=== PATIENT | female | born 1965 | race Caucasian/White ===

== ENCOUNTER 2018-12-11 08:48 | Outpatient (CLI) | payer MEDICARE ==
[2018-12-11 10:50] LABS: CALCIUM 8.6 mg/dL (8.5-10.3); CREATININE 1.1 mg/dL (0.4-1.0)
[2018-12-11 10:52] LABS: INR 2.2 (0.8-1.2); PT - PROTHROMBIN TIME 24.5 secs (9.9-12.6)
== END 2018-12-11 08:49 | disposition home or self-care (01) ==
LOC: LAB.F 08:48
PROVIDERS: ATTEND Family Medicine
DX: E87.5 Hyperkalemia (principal); Z95.2 Presence of prosthetic heart valve; Z79.01 Long term (current) use of anticoagulants
CPT/HCPCS: 36415; 80048; 85610

== ENCOUNTER 2018-12-19 09:25 | Outpatient (CLI) | payer MEDICARE ==
[2018-12-19 18:08] LABS: INR 1.7 (0.8-1.2); PT - PROTHROMBIN TIME 18.6 secs (9.9-12.6)
== END 2018-12-19 09:26 | disposition home or self-care (01) ==
LOC: LAB.F 09:25
PROVIDERS: ATTEND Family Medicine
DX: Z95.2 Presence of prosthetic heart valve (principal); Z79.01 Long term (current) use of anticoagulants
CPT/HCPCS: 36415; 85610

== ENCOUNTER 2018-12-25 09:40 | Outpatient (CLI) | payer MEDICARE ==
[2018-12-25 18:32] LABS: INR 1.9 (0.8-1.2); PT - PROTHROMBIN TIME 21.2 secs (9.9-12.6)
== END 2018-12-25 09:41 | disposition home or self-care (01) ==
LOC: LAB.F 09:40
PROVIDERS: ATTEND Family Medicine
DX: Z95.2 Presence of prosthetic heart valve (principal); Z79.01 Long term (current) use of anticoagulants
CPT/HCPCS: 36415; 85610

== ENCOUNTER 2019-01-01 09:35 | Outpatient (CLI) | payer MEDICARE ==
[2019-01-01 17:58] LABS: INR 2.6 (0.8-1.2); PT - PROTHROMBIN TIME 29.4 secs (9.9-12.6)
== END 2019-01-01 09:36 | disposition home or self-care (01) ==
LOC: LAB.F 09:35
PROVIDERS: ATTEND Family Medicine
DX: Z79.01 Long term (current) use of anticoagulants (principal); Z95.2 Presence of prosthetic heart valve
CPT/HCPCS: 36415; 85610

== ENCOUNTER 2019-01-09 09:01 | Outpatient (CLI) | payer MEDICARE ==
[2019-01-09 11:11] LABS: INR 1.8 (0.8-1.2); PT - PROTHROMBIN TIME 19.9 secs (9.9-12.6)
== END 2019-01-09 09:02 | disposition home or self-care (01) ==
LOC: LAB.F 09:01
PROVIDERS: ATTEND Family Medicine
DX: Z51.81 Encounter for therapeutic drug level monitoring (principal); Z79.01 Long term (current) use of anticoagulants; Z95.2 Presence of prosthetic heart valve
CPT/HCPCS: 36415; 85610

== ENCOUNTER 2019-01-15 13:41 | Outpatient (CLI) | payer MEDICARE ==
[2019-01-15 18:11] LABS: INR 3.4 (0.8-1.2); PT - PROTHROMBIN TIME 37.9 secs (9.9-12.6)
== END 2019-01-15 13:42 | disposition home or self-care (01) ==
LOC: LAB.F 13:41
PROVIDERS: ATTEND Family Medicine
DX: Z51.81 Encounter for therapeutic drug level monitoring (principal); Z79.01 Long term (current) use of anticoagulants; Z95.2 Presence of prosthetic heart valve
CPT/HCPCS: 36415; 85610

== ENCOUNTER 2019-01-22 10:01 | Outpatient (CLI) | payer MEDICARE ==
[2019-01-22 17:35] LABS: PT - PROTHROMBIN TIME 53.8 secs (9.9-12.6)
[2019-01-22 17:54] LABS: INR 4.8 (0.8-1.2)
== END 2019-01-22 10:02 | disposition home or self-care (01) ==
LOC: LAB.S 10:01
PROVIDERS: ATTEND Family Medicine
DX: Z95.2 Presence of prosthetic heart valve (principal); Z79.01 Long term (current) use of anticoagulants
CPT/HCPCS: 36415; 85610

== ENCOUNTER 2019-02-05 15:29 | Outpatient (CLI) | payer MEDICARE | END 2019-02-05 15:30 | disposition home or self-care (01) | LOC: LAB.S 15:29 | PROVIDERS: ATTEND Family Medicine | DX: Z79.01 Long term (current) use of anticoagulants (principal); Z95.2 Presence of prosthetic heart valve | CPT/HCPCS: 85610 ==

== ENCOUNTER 2019-02-07 13:30 | Outpatient (CLI) | payer MEDICARE ==
[2019-02-07 17:17] LABS: INR 1.6 (0.8-1.2); PT - PROTHROMBIN TIME 18.2 secs (9.9-12.6)
== END 2019-02-07 13:31 | disposition home or self-care (01) ==
LOC: LAB.S 13:30
PROVIDERS: ATTEND Family Medicine
DX: Z95.2 Presence of prosthetic heart valve (principal); Z79.01 Long term (current) use of anticoagulants
CPT/HCPCS: 36415; 85610

== ENCOUNTER 2019-02-19 14:19 | Outpatient (CLI) | payer MEDICARE ==
[2019-02-19 18:34] LABS: PT - PROTHROMBIN TIME 78.7 secs (9.9-12.6)
[2019-02-19 19:23] LABS: INR 7.1 (0.8-1.2)
== END 2019-02-19 14:20 | disposition home or self-care (01) ==
LOC: LAB.S 14:19
PROVIDERS: ATTEND Family Medicine
DX: Z95.2 Presence of prosthetic heart valve (principal); Z79.01 Long term (current) use of anticoagulants
CPT/HCPCS: 36415; 85610

== ENCOUNTER 2019-02-26 | Outpatient (CLI) | payer MEDICARE | END 2019-02-26 14:36 | disposition home or self-care (01) ==

== ENCOUNTER 2019-03-01 15:33 | Outpatient (CLI) | payer MEDICARE ==
[2019-03-01 17:09] LABS: INR 1.4 (0.8-1.2); PT - PROTHROMBIN TIME 15.5 secs (9.9-12.6)
== END 2019-03-01 15:34 | disposition home or self-care (01) ==
LOC: LAB.S 15:33
PROVIDERS: ATTEND Family Medicine
DX: Z95.2 Presence of prosthetic heart valve (principal); Z79.01 Long term (current) use of anticoagulants
CPT/HCPCS: 36415; 85610

== ENCOUNTER 2019-03-06 09:42 | Outpatient (CLI) | payer MEDICARE ==
[2019-03-06 17:20] LABS: PT - PROTHROMBIN TIME 52.6 secs (9.9-12.6)
[2019-03-06 17:30] LABS: INR 4.7 (0.8-1.2)
== END 2019-03-06 09:43 | disposition home or self-care (01) ==
LOC: LAB.S 09:42
PROVIDERS: ATTEND Family Medicine
DX: Z95.2 Presence of prosthetic heart valve (principal); Z79.01 Long term (current) use of anticoagulants
CPT/HCPCS: 36415; 85610

== ENCOUNTER 2019-03-09 14:47 | Outpatient (CLI) | payer MEDICARE ==
[2019-03-09 17:38] LABS: INR 4.3 (0.8-1.2); PT - PROTHROMBIN TIME 47.9 secs (9.9-12.6)
== END 2019-03-09 14:48 | disposition home or self-care (01) ==
LOC: LAB.S 14:47
PROVIDERS: ATTEND Family Medicine
DX: Z95.2 Presence of prosthetic heart valve (principal); Z79.01 Long term (current) use of anticoagulants
CPT/HCPCS: 36415; 85610

== ENCOUNTER 2019-03-14 11:43 | Outpatient (CLI) | payer MEDICARE ==
[2019-03-14 17:44] LABS: PT - PROTHROMBIN TIME 64.9 secs (9.9-12.6)
[2019-03-14 17:54] LABS: INR 5.8 (0.8-1.2)
== END 2019-03-14 11:44 | disposition home or self-care (01) ==
LOC: LAB.S 11:43
PROVIDERS: ATTEND Family Medicine
DX: Z95.2 Presence of prosthetic heart valve (principal); Z79.01 Long term (current) use of anticoagulants
CPT/HCPCS: 36415; 85610

== ENCOUNTER 2019-03-19 12:16 | Outpatient (CLI) | payer MEDICARE ==
[2019-03-19 18:34] LABS: INR 5.6 (0.8-1.2); PT - PROTHROMBIN TIME 62.5 secs (9.9-12.6)
== END 2019-03-19 12:17 | disposition home or self-care (01) ==
LOC: LAB.S 12:16
PROVIDERS: ATTEND Family Medicine
DX: Z95.2 Presence of prosthetic heart valve (principal); Z79.01 Long term (current) use of anticoagulants
CPT/HCPCS: 36415; 85610

== ENCOUNTER 2019-03-27 14:54 | Outpatient (CLI) | payer MEDICARE ==
[2019-03-27 18:40] LABS: INR 2.7 (0.8-1.2); PT - PROTHROMBIN TIME 30.7 secs (9.9-12.6)
== END 2019-03-27 14:55 | disposition home or self-care (01) ==
LOC: LAB.S 14:54
PROVIDERS: ATTEND Family Medicine
DX: Z95.2 Presence of prosthetic heart valve (principal); Z79.01 Long term (current) use of anticoagulants
CPT/HCPCS: 36415; 85610

== ENCOUNTER 2019-04-02 15:01 | Outpatient (CLI) | payer MEDICARE ==
[2019-04-02 17:11] LABS: INR 4.2 (0.8-1.2); PT - PROTHROMBIN TIME 46.7 secs (9.9-12.6)
== END 2019-04-02 15:02 | disposition home or self-care (01) ==
LOC: LAB.S 15:01
PROVIDERS: ATTEND Family Medicine
DX: Z95.2 Presence of prosthetic heart valve (principal); Z79.01 Long term (current) use of anticoagulants
CPT/HCPCS: 36415; 85610

== ENCOUNTER 2019-04-11 14:59 | Outpatient (CLI) | payer MEDICARE ==
[2019-04-11 17:23] LABS: INR 3.7 (0.8-1.2); PT - PROTHROMBIN TIME 40.8 secs (9.9-12.6)
== END 2019-04-11 15:00 | disposition home or self-care (01) ==
LOC: LAB.S 14:59
PROVIDERS: ATTEND Family Medicine
DX: Z51.81 Encounter for therapeutic drug level monitoring (principal); Z79.01 Long term (current) use of anticoagulants; Z95.2 Presence of prosthetic heart valve
CPT/HCPCS: 36415; 85610

== ENCOUNTER 2019-04-16 11:18 | Outpatient (CLI) | payer MEDICARE ==
[2019-04-16 18:59] LABS: INR 2.9 (0.8-1.2); PT - PROTHROMBIN TIME 30.9 secs (9.9-12.6)
== END 2019-04-16 11:19 | disposition home or self-care (01) ==
LOC: LAB.S 11:18
PROVIDERS: ATTEND Family Medicine
DX: Z51.81 Encounter for therapeutic drug level monitoring (principal); Z79.01 Long term (current) use of anticoagulants; Z95.2 Presence of prosthetic heart valve
CPT/HCPCS: 36415; 85610

== ENCOUNTER 2019-04-23 09:16 | Outpatient (CLI) | payer MEDICARE ==
[2019-04-23 17:29] LABS: INR 3.1 (0.8-1.2); PT - PROTHROMBIN TIME 32.8 secs (9.9-12.6)
== END 2019-04-23 09:17 | disposition home or self-care (01) ==
LOC: LAB.S 09:16
PROVIDERS: ATTEND Family Medicine
DX: Z95.2 Presence of prosthetic heart valve (principal); Z79.01 Long term (current) use of anticoagulants
CPT/HCPCS: 36415; 85610

== ENCOUNTER 2019-04-30 12:37 | Outpatient (CLI) | payer MEDICARE ==
[2019-04-30 12:55] LABS: INR 2.8 (0.8-1.2); PT - PROTHROMBIN TIME 30.2 secs (9.9-12.6)
== END 2019-04-30 12:38 | disposition home or self-care (01) ==
LOC: LAB 12:37
PROVIDERS: ATTEND Family Medicine
DX: Z79.01 Long term (current) use of anticoagulants (principal); Z95.2 Presence of prosthetic heart valve
CPT/HCPCS: 36415; 85610

== ENCOUNTER 2019-05-11 18:19 | Emergency (ER) | payer MEDICARE ==
--- NOTE | 2019-05-11 19:03 | ED Physician Documentation ---
History of Present Illness - Stated complaint Stated Complaint: RIGHT RIB PX - Chief complaint Chief Complaint: Trauma Ch/Bk - History obtained from History obtained from: Patient - History of Present Illness Timing: How many days ago (5) Pain level max: 8 Pain level now: 5 - Additonal information Additional information: 54-year-old female tripped and fell approximately 5 to 6 days ago. Landed on the right side of her chest. Complaining of pain. Worse with movement and palpation. Better with rest. She is taking Vicodin at home for chronic pain. She states that this does help. She last took it this morning. Review of Systems Constitutional: denies: Fever, Chills Cardiac: denies: Chest pain / pressure, Palpitations Respiratory: reports: Dyspnea (States hurts to take a deep breath). denies: Cough, Hemoptysis, Wheezing GI: denies: Abdominal Pain, Nausea, Vomiting, Diarrhea Skin: denies: Rash Musculoskeletal: denies: Neck pain, Back pain Neurologic: denies: Headache PD PAST MEDICAL HISTORY - Past Medical History Past Medical History: Yes Cardiovascular: Hypertension, Arrhythmia, Valve disorder Respiratory: COPD Neuro: Seizure disorder Psych: Anxiety - Past Surgical History Cardiovascular: Valve replacement Neuro: Other - Present Medications Home Medications: Ambulatory Orders Medication Instructions Recorded Confirmed Albuterol Sulfate [Proventil Hfa 2 puffs INH PRN PRN 05/11/19 05/11/19 Inhaler] Beclomethasone 40 Mcg [Qvar 40] 1 puffs INH PRN PRN 05/11/19 05/11/19 Duloxetine HCl [Cymbalta] 60 mg PO DAILY 05/11/19 05/11/19 Famotidine [Pepcid] 20 mg PO BID 05/11/19 05/11/19 Hydrocodone/Acetaminophen 1 tab PO PRN PRN 05/11/19 05/11/19 [Hydrocodone-Acetamin 10-325 mg] Levetiracetam [Keppra] 500 mg PO BID 05/11/19 05/11/19 Lisinopril 10 mg PO DAILY 05/11/19 05/11/19 QUEtiapine [SEROquel] 200 mg PO DAILY PM 05/11/19 05/11/19 Warfarin [Coumadin] 10 mg PO 1400 05/11/19 05/11/19 buPROPion HCl [Wellbutrin Sr] 200 mg PO DAILY 05/11/19 05/11/19 busPIRone [Buspar] 2 mg PO DAILY 05/11/19 05/11/19 - Allergies Allergies/Adverse Reactions: Allergies Allergy/AdvReac Type Severity Reaction Status Date / Time No Known Drug Allergies Allergy Verified 05/11/19 18:23 - Social History Does the pt smoke?: Yes Smoking Status: Current every day smoker Does the pt drink ETOH?: No Does the pt have substance abuse?: No - Immunizations Immunizations are current?: Yes PD ED PE NORMAL - Vitals Vital signs reviewed: Yes - General General: Alert and oriented X 3, No acute distress, Well developed/nourished - HEENT HEENT: Moist mucous membranes - Neck Neck: Supple, no meningeal sign, No bony TTP - Cardiac Cardiac: RRR - Respiratory Respiratory: No respiratory distress, Clear bilaterally, Other (Tender to palpation across the right anterior ribs, approximately 8 through 10. No crepitus. No ecchymosis.) - Abdomen Abdomen: Soft, Non tender, Non distended - Back Back: No spinal TTP - Derm Derm: Warm and dry - Extremities Extremities: No edema - Neuro Neuro: Alert and oriented X 3, transplant nurse practitioner 2-12 intact, No motor deficit, No sensory deficit, Normal speech Eye Opening: Spontaneous Motor: Obeys Commands Verbal: Oriented GCS Score: 15 - Psych Psych: Normal mood, Normal affect Results - Vitals Vitals: Vital Signs - 24 hr 05/11/19 05/11/19 18:23 20:36 Temperature 36.7 C 36.5 C Heart Rate 96 90 Respiratory 16 18 Rate Blood Pressure 130/53 L 117/52 L O2 Saturation 99 97 Oxygen O2 Source Room air - Rads (name of study) Right rib x-ray Radiology: Prelim report reviewed, EMP read contemporaneously, See rad report (No acute abnormality) PD MEDICAL DECISION MAKING - ED course Complexity details: reviewed results, re-evaluated patient, considered differential, d/w patient, d/w family ED course: Patient with likely right rib contusion versus fracture that is not visible on x-ray. She has pain medication at home and declines pain medication here or for home. No pneumothorax or hemothorax. Patient counseled regarding signs and symptoms for which I believe and urgent re-evaluation would be necessary. Patient with good understanding of and agreement to plan and is comfortable going home at this time This document was made in part using voice recognition software. While efforts are made to proofread this document, sound alike and grammatical errors may occur. Departure - Departure Disposition: 01 Home, Self Care Clinical Impression: Contusion of rib on right side Qualifiers: Encounter type: initial encounter Qualified Code(s): S20.211A - Contusion of right front wall of thorax, initial encounter Condition: Good Instructions: ED Contusion Rib Follow-Up: Alex Pozo MD [Primary Care Provider] - Within 1 week Comments: Continue your current medications at home. Return if you worsen. Follow-up with your doctor for further care. Discharge Date/Time: 05/11/19 20:37
--- NOTE | 2019-05-11 20:20 | XRAY Report ---
Reason: fall, R rib pain Procedure Date: 05/11/2019 Accession Number: [id number] / [id number] Procedure: XR - Ribs w/PA Chest RT CPT Code: FULL RESULT: EXAM: RIGHT RIB RADIOGRAPHY EXAM DATE: 05/11/2019 07:41 PM. CLINICAL HISTORY: Fall with right-sided rib pain COMPARISON: None. TECHNIQUE: 1 view of the chest and 2 views of the ribs. FINDINGS: Bones: Normal. No fracture or bone lesion. Lungs: No focal opacities. No pneumothorax. No pleural effusions. Mediastinum: Cardiomegaly. Median sternotomy wires. Annular valve prostheses. Other: None. IMPRESSION: No active disease seen in the chest. No displaced right rib fracture. RADIA
[2019-05-11 20:37] VITALS: BP 117/52
== END 2019-05-11 20:37 | disposition home or self-care (01) ==
LOC: ED 18:19
DX: S20.211A Contusion of right front wall of thorax, initial encounter (principal); W01.0XXA Fall on same level from slipping, tripping and stumbling without subsequent striking against object, initial encounter; I10 Essential (primary) hypertension; Z79.01 Long term (current) use of anticoagulants; Z95.2 Presence of prosthetic heart valve; J44.9 Chronic obstructive pulmonary disease, unspecified; F17.200 Nicotine dependence, unspecified, uncomplicated
CPT/HCPCS: 85610; 99282; 99284

== ENCOUNTER 2019-05-14 13:26 | Outpatient (CLI) | payer MEDICARE ==
[2019-05-14 18:00] LABS: PT - PROTHROMBIN TIME 41.7 secs (9.9-12.6)
== END 2019-05-14 13:27 | disposition home or self-care (01) ==
LOC: LAB.S 13:26
PROVIDERS: ATTEND Family Medicine
DX: Z95.2 Presence of prosthetic heart valve (principal); Z79.01 Long term (current) use of anticoagulants
CPT/HCPCS: 36415; 85610

== ENCOUNTER 2019-05-21 12:24 | Outpatient (CLI) | payer MEDICARE ==
[2019-05-21 18:07] LABS: PT - PROTHROMBIN TIME 32.2 secs (9.9-12.6)
== END 2019-05-21 12:25 | disposition home or self-care (01) ==
LOC: LAB.S 12:24
PROVIDERS: ATTEND Family Medicine
DX: Z79.01 Long term (current) use of anticoagulants (principal); Z95.2 Presence of prosthetic heart valve
CPT/HCPCS: 36415; 85610

== ENCOUNTER 2019-06-04 11:42 | Outpatient (CLI) | payer MEDICARE ==
[2019-06-04 12:32] LABS: INR 2.9 (0.8-1.2); PT - PROTHROMBIN TIME 31.6 secs (9.9-12.6)
[2019-06-04 12:38] LABS: CREATININE 1.7 mg/dL (0.4-1.0)
== END 2019-06-04 11:43 | disposition home or self-care (01) ==
LOC: LAB 11:42
PROVIDERS: ATTEND Family Medicine
DX: Z79.01 Long term (current) use of anticoagulants (principal); Z95.2 Presence of prosthetic heart valve; E87.5 Hyperkalemia
CPT/HCPCS: 36415; 80048; 85610

== ENCOUNTER 2019-06-18 11:37 | Outpatient (CLI) | payer MEDICARE ==
[2019-06-18 17:47] LABS: INR 2.3 (0.8-1.2); PT - PROTHROMBIN TIME 25.2 secs (9.9-12.6)
== END 2019-06-18 11:38 | disposition home or self-care (01) ==
LOC: LAB.S 11:37
PROVIDERS: ATTEND Family Medicine
DX: Z79.01 Long term (current) use of anticoagulants (principal); Z95.2 Presence of prosthetic heart valve
CPT/HCPCS: 36415; 85610

== ENCOUNTER 2019-06-25 12:44 | Outpatient (CLI) | payer MEDICARE ==
[2019-06-25 18:08] LABS: INR 2.3 (0.8-1.2); PT - PROTHROMBIN TIME 24.6 secs (9.9-12.6)
== END 2019-06-25 23:59 | disposition home or self-care (01) ==
LOC: LAB.S 12:44
PROVIDERS: ATTEND Family Medicine
DX: Z79.01 Long term (current) use of anticoagulants (principal); Z95.2 Presence of prosthetic heart valve
CPT/HCPCS: 36415; 85610

== ENCOUNTER 2019-07-02 12:15 | Outpatient (CLI) | payer MEDICARE ==
[2019-07-02 17:24] LABS: INR 2.3 (0.8-1.2); PT - PROTHROMBIN TIME 24.5 secs (9.9-12.6)
== END 2019-07-02 12:16 | disposition home or self-care (01) ==
LOC: LAB.S 12:15
PROVIDERS: ATTEND Family Medicine
DX: Z79.01 Long term (current) use of anticoagulants (principal); Z95.2 Presence of prosthetic heart valve
CPT/HCPCS: 36415; 85610

== ENCOUNTER 2019-07-23 10:32 | Outpatient (CLI) | payer MEDICARE ==
[2019-07-23 18:02] LABS: PT - PROTHROMBIN TIME 32.2 secs (9.9-12.6)
== END 2019-07-23 10:33 | disposition home or self-care (01) ==
LOC: LAB.S 10:32
PROVIDERS: ATTEND Family Medicine
DX: Z79.01 Long term (current) use of anticoagulants (principal); Z95.2 Presence of prosthetic heart valve
CPT/HCPCS: 36415; 85610

== ENCOUNTER 2019-08-13 12:00 | Outpatient (CLI) | payer MEDICARE ==
[2019-08-13 17:50] LABS: INR 2.5 (0.8-1.2); PT - PROTHROMBIN TIME 27.3 secs (9.9-12.6)
== END 2019-08-13 12:01 | disposition home or self-care (01) ==
LOC: LAB.S 12:00
PROVIDERS: ATTEND Family Medicine
DX: Z79.01 Long term (current) use of anticoagulants (principal); Z95.2 Presence of prosthetic heart valve
CPT/HCPCS: 36415; 85610

== ENCOUNTER 2019-09-03 12:10 | Outpatient (CLI) | payer MEDICARE | END 2019-09-03 12:11 | disposition home or self-care (01) | LOC: LAB.S 12:10 | PROVIDERS: ATTEND Family Medicine | DX: Z79.01 Long term (current) use of anticoagulants (principal); Z95.2 Presence of prosthetic heart valve | CPT/HCPCS: 36415; 85610 ==

== ENCOUNTER 2019-10-01 11:52 | Outpatient (CLI) | payer MEDICARE ==
[2019-10-01 17:09] LABS: INR 2.7 (0.8-1.2); PT - PROTHROMBIN TIME 28.7 secs (9.9-12.6)
[2019-10-01 17:21] LABS: ALBUMIN/GLOBULIN RATIO 1.3 (1.0-2.2); ALKALINE PHOSPHATASE 64 IU/L (42-121); ALT ALANINE AMINOTRANSFERASE 20 IU/L (10-60); AST ASPARTATE AMINOTRANSFERASE 25 IU/L (10-42); BILIRUBIN,TOTAL 0.4 mg/dL (0.2-1.0); BUN - BLOOD UREA NITROGEN 15 mg/dL (6-20); CALCIUM 8.6 mg/dL (8.5-10.3); CARBON DIOXIDE - CO2 24 mmol/L (21-32); CHLORIDE 106 mmol/L (101-111); CHOL/HDL RATIO 7.5 (<4.4); CHOLESTEROL 264 mg/dL; GFR - MDRD 57 (>89); GLUCOSE 92 mg/dL (70-100); HDL CHOLESTEROL 35 mg/dL; SODIUM 137 mmol/L (135-145)
[2019-10-01 17:54] LABS: LDL CHOLESTEROL,DIRECT 142 mg/dL; LDLD/HDL RATIO 4.1 (<4.4)
== END 2019-10-01 11:53 | disposition home or self-care (01) ==
LOC: LAB.S 11:52
PROVIDERS: ATTEND Family Medicine
DX: Z00.00 Encounter for general adult medical examination without abnormal findings (principal); Z95.2 Presence of prosthetic heart valve; Z79.01 Long term (current) use of anticoagulants
CPT/HCPCS: 36415; 80053; 80061; 83721; 85610

== ENCOUNTER 2019-11-05 11:52 | Outpatient (CLI) | payer MEDICARE ==
[2019-11-05 12:21] LABS: INR 4.4 (0.8-1.2); PT - PROTHROMBIN TIME 46.3 secs (9.9-12.6)
== END 2019-11-05 11:53 | disposition home or self-care (01) ==
LOC: LAB 11:52
PROVIDERS: ATTEND Family Medicine
DX: Z95.2 Presence of prosthetic heart valve (principal); Z79.01 Long term (current) use of anticoagulants
CPT/HCPCS: 36415; 85610

== ENCOUNTER 2019-11-23 14:28 | Outpatient (CLI) | payer MEDICARE ==
[2019-11-23 14:58] LABS: INR 3.2 (0.8-1.2); PT - PROTHROMBIN TIME 34.4 secs (9.9-12.6)
== END 2019-11-23 14:29 | disposition home or self-care (01) ==
LOC: LAB 14:28
PROVIDERS: ATTEND Family Medicine
DX: Z95.2 Presence of prosthetic heart valve (principal); Z79.01 Long term (current) use of anticoagulants
CPT/HCPCS: 36415; 85610

== ENCOUNTER 2019-12-13 12:52 | Outpatient (CLI) | payer MEDICARE ==
[2019-12-13 13:33] LABS: PT - PROTHROMBIN TIME 55.3 secs (9.9-12.6)
[2019-12-13 13:51] LABS: INR 5.3 (0.8-1.2)
== END 2019-12-13 12:53 | disposition home or self-care (01) ==
LOC: LAB 12:52
PROVIDERS: ATTEND Family Medicine
DX: Z95.2 Presence of prosthetic heart valve (principal); Z79.01 Long term (current) use of anticoagulants
CPT/HCPCS: 36415; 85610

== ENCOUNTER 2019-12-18 15:48 | Outpatient (CLI) | payer MEDICARE ==
[2019-12-18 16:18] LABS: INR 2.5 (0.8-1.2); PT - PROTHROMBIN TIME 26.7 secs (9.9-12.6)
== END 2019-12-18 15:49 | disposition home or self-care (01) ==
LOC: LAB 15:48
PROVIDERS: ATTEND Family Medicine
DX: Z95.2 Presence of prosthetic heart valve (principal); Z79.01 Long term (current) use of anticoagulants
CPT/HCPCS: 36415; 85610

== ENCOUNTER 2019-12-31 12:25 | Outpatient (CLI) | payer MEDICARE ==
[2019-12-31 15:06] LABS: INR 1.8 (0.8-1.2); PT - PROTHROMBIN TIME 20.2 secs (9.9-12.6)
== END 2019-12-31 12:26 | disposition home or self-care (01) ==
LOC: LAB.S 12:25
PROVIDERS: ATTEND Family Medicine
DX: Z95.2 Presence of prosthetic heart valve (principal); Z79.01 Long term (current) use of anticoagulants
CPT/HCPCS: 36415; 85610

== ENCOUNTER 2020-01-21 13:30 | Outpatient (CLI) | payer MEDICARE ==
[2020-01-21 20:47] LABS: INR 2.1 (0.8-1.2); PT - PROTHROMBIN TIME 23.2 secs (9.9-12.6)
[2020-01-21 20:49] LABS: BASOPHILS # (AUTO) 0.1 10^3/uL (0.0-0.1); BASOPHILS % (AUTO) 0.9 %; EOSINOPHILS # (AUTO) 0.2 10^3/uL (0.0-0.7); EOSINOPHILS % (AUTO) 2.3 %; HGB - HEMOGLOBIN 11.6 g/dL (12.0-16.0); LYMPHOCYTES # (AUTO) 1.9 10^3/uL (1.5-3.5); LYMPHOCYTES % (AUTO) 24.8 %; MEAN CORPUSCULAR HEMOGLOBIN 30.3 pg (27.0-31.0); MEAN CORPUSCULAR HGB CONC 30.5 g/dL (32.0-36.0); MEAN CORPUSCULAR VOLUME 99.2 fL (81.0-99.0); MEAN PLATELET VOLUME 11.1 fL (7.9-10.8); MONOCYTES # (AUTO) 0.4 10^3/uL (0.0-1.0); MONOCYTES % (AUTO) 5.6 %; NEUTROPHILS # (AUTO) 5.1 10^3/uL (1.5-6.6); PLT - PLATELET COUNT 270 10^3/uL (130-450); RED BLOOD COUNT 3.83 10^6/uL (4.20-5.40); RED CELL DISTRIBUTION WIDTH 13.9 % (12.0-15.0); WHITE BLOOD COUNT 7.7 x10^3/uL (4.8-10.8)
[2020-01-21 21:29] LABS: ALBUMIN 4.5 g/dL (3.2-5.5); ALBUMIN/GLOBULIN RATIO 1.6 (1.0-2.2); ALKALINE PHOSPHATASE 60 IU/L (42-121); ALT ALANINE AMINOTRANSFERASE 17 IU/L (10-60); AST ASPARTATE AMINOTRANSFERASE 23 IU/L (10-42); BILIRUBIN,TOTAL 0.7 mg/dL (0.2-1.0); BUN - BLOOD UREA NITROGEN 26 mg/dL (6-20); CALCIUM 8.6 mg/dL (8.5-10.3); CARBON DIOXIDE - CO2 23 mmol/L (21-32); CHLORIDE 106 mmol/L (101-111); CHOL/HDL RATIO 4.9 (<4.4); CHOLESTEROL 196 mg/dL; CREATININE 1.5 mg/dL (0.4-1.0); GLUCOSE 89 mg/dL (70-100); HDL CHOLESTEROL 40 mg/dL; LDL CHOLESTEROL,CALCULATED 100 mg/dL; LDL/HDL RATIO 2.5 (<4.4); SODIUM 136 mmol/L (135-145); TOTAL PROTEIN 7.4 g/dL (6.7-8.2); VLDL CHOLESTEROL 56 mg/dL
== END 2020-01-21 13:31 | disposition home or self-care (01) ==
LOC: LAB.S 13:30
PROVIDERS: ATTEND Family Medicine
DX: Z95.2 Presence of prosthetic heart valve (principal); Z79.01 Long term (current) use of anticoagulants; E87.5 Hyperkalemia; E78.2 Mixed hyperlipidemia; D64.9 Anemia, unspecified
CPT/HCPCS: 36415; 80053; 80061; 83721; 85025; 85610

== ENCOUNTER 2020-02-04 13:14 | Outpatient (CLI) | payer MEDICARE ==
[2020-02-04 20:08] LABS: INR 2.1 (0.8-1.2); PT - PROTHROMBIN TIME 23.2 secs (9.9-12.6)
== END 2020-02-04 13:15 | disposition home or self-care (01) ==
LOC: LAB.S 13:14
PROVIDERS: ATTEND Family Medicine
DX: Z95.2 Presence of prosthetic heart valve (principal); Z79.01 Long term (current) use of anticoagulants
CPT/HCPCS: 36415; 85610

== ENCOUNTER 2020-02-11 13:31 | Outpatient (CLI) | payer MEDICARE ==
[2020-02-11 20:08] LABS: INR 3.1 (0.8-1.2); PT - PROTHROMBIN TIME 33.4 secs (9.9-12.6)
== END 2020-02-11 13:32 | disposition home or self-care (01) ==
LOC: LAB.S 13:31
PROVIDERS: ATTEND Family Medicine
DX: Z95.2 Presence of prosthetic heart valve (principal); Z79.01 Long term (current) use of anticoagulants
CPT/HCPCS: 36415; 85610

== ENCOUNTER 2020-03-10 13:01 | Outpatient (CLI) | payer MEDICARE ==
[2020-03-10 15:22] LABS: INR 3.9 (0.8-1.2)
== END 2020-03-10 13:02 | disposition home or self-care (01) ==
LOC: LAB.S 13:01
PROVIDERS: ATTEND Family Medicine
DX: Z79.01 Long term (current) use of anticoagulants (principal); Z95.2 Presence of prosthetic heart valve
CPT/HCPCS: 36415; 85610

== ENCOUNTER 2020-03-17 13:12 | Outpatient (CLI) | payer MEDICARE ==
[2020-03-17 15:21] LABS: PT - PROTHROMBIN TIME 56.8 secs (9.9-12.6)
[2020-03-17 15:31] LABS: INR 5.5 (0.8-1.2)
== END 2020-03-17 13:13 | disposition home or self-care (01) ==
LOC: LAB.S 13:12
PROVIDERS: ATTEND Family Medicine
DX: Z79.01 Long term (current) use of anticoagulants (principal); Z95.2 Presence of prosthetic heart valve
CPT/HCPCS: 36415; 85610

== ENCOUNTER 2020-03-20 16:13 | Outpatient (CLI) | payer MEDICARE ==
[2020-03-20 20:35] LABS: INR 2.8 (0.8-1.2)
== END 2020-03-20 16:14 | disposition home or self-care (01) ==
LOC: LAB.S 16:13
PROVIDERS: ATTEND Family Medicine
DX: Z95.2 Presence of prosthetic heart valve (principal); Z79.01 Long term (current) use of anticoagulants
CPT/HCPCS: 36415; 85610

== ENCOUNTER 2020-03-24 12:58 | Outpatient (CLI) | payer MEDICARE ==
[2020-03-24 16:22] LABS: PT - PROTHROMBIN TIME 42.1 secs (9.9-12.6)
== END 2020-03-24 12:59 | disposition home or self-care (01) ==
LOC: LAB.S 12:58
PROVIDERS: ATTEND Family Medicine
DX: Z95.2 Presence of prosthetic heart valve (principal); Z79.01 Long term (current) use of anticoagulants
CPT/HCPCS: 36415; 85610

== ENCOUNTER 2020-04-01 15:40 | Outpatient (CLI) | payer MEDICARE ==
[2020-04-01 20:13] LABS: INR 2.5 (0.8-1.2); PT - PROTHROMBIN TIME 26.5 secs (9.9-12.6)
== END 2020-04-01 15:41 | disposition home or self-care (01) ==
LOC: LAB.S 15:40
PROVIDERS: ATTEND Family Medicine
DX: Z79.01 Long term (current) use of anticoagulants (principal); Z95.2 Presence of prosthetic heart valve
CPT/HCPCS: 85610

== ENCOUNTER 2020-04-14 13:27 | Outpatient (CLI) | payer MEDICARE ==
[2020-04-14 20:01] LABS: INR 2.2 (0.8-1.2); PT - PROTHROMBIN TIME 23.5 secs (9.9-12.6)
== END 2020-04-14 13:28 | disposition home or self-care (01) ==
LOC: LAB.S 13:27
PROVIDERS: ATTEND Family Medicine
DX: Z95.2 Presence of prosthetic heart valve (principal); Z79.01 Long term (current) use of anticoagulants
CPT/HCPCS: 36415; 85610

== ENCOUNTER 2020-04-21 14:50 | Outpatient (CLI) | payer MEDICARE ==
[2020-04-21 20:17] LABS: INR 2.6 (0.8-1.2); PT - PROTHROMBIN TIME 26.8 secs (9.9-12.6)
== END 2020-04-21 14:51 | disposition home or self-care (01) ==
LOC: LAB.S 14:50
PROVIDERS: ATTEND Family Medicine
DX: Z95.2 Presence of prosthetic heart valve (principal); Z79.01 Long term (current) use of anticoagulants
CPT/HCPCS: 85610

== ENCOUNTER 2020-05-06 18:34 | Outpatient (CLI) | payer MEDICARE ==
[2020-05-06 20:11] LABS: INR 3.1 (0.8-1.2); PT - PROTHROMBIN TIME 31.7 secs (9.9-12.6)
== END 2020-05-06 18:35 | disposition home or self-care (01) ==
LOC: LAB.S 18:34
PROVIDERS: ATTEND Family Medicine
DX: Z95.2 Presence of prosthetic heart valve (principal); Z79.01 Long term (current) use of anticoagulants
CPT/HCPCS: 36415; 85610

== ENCOUNTER 2020-05-19 13:14 | Outpatient (CLI) | payer MEDICARE | END 2020-05-19 13:15 | disposition home or self-care (01) | LOC: LAB.S 13:14 | PROVIDERS: ATTEND Family Medicine | DX: Z79.01 Long term (current) use of anticoagulants (principal); Z95.2 Presence of prosthetic heart valve | CPT/HCPCS: 36415; 85610 ==

== ENCOUNTER 2020-06-11 12:47 | Outpatient (CLI) | payer MEDICARE ==
[2020-06-11 14:44] LABS: PT - PROTHROMBIN TIME 21.6 secs (9.9-12.6)
== END 2020-06-11 12:48 | disposition home or self-care (01) ==
LOC: LAB.S 12:47
PROVIDERS: ATTEND Family Medicine
DX: Z95.2 Presence of prosthetic heart valve (principal); Z79.01 Long term (current) use of anticoagulants
CPT/HCPCS: 36415; 85610

== ENCOUNTER 2020-06-18 11:07 | Outpatient (CLI) | payer MEDICARE ==
[2020-06-18 16:31] LABS: INR 2.3 (0.8-1.2); PT - PROTHROMBIN TIME 24.1 secs (9.9-12.6)
== END 2020-06-18 11:08 | disposition home or self-care (01) ==
LOC: LAB.S 11:07
PROVIDERS: ATTEND Family Medicine
DX: Z95.2 Presence of prosthetic heart valve (principal); Z79.01 Long term (current) use of anticoagulants
CPT/HCPCS: 36415; 85610

== ENCOUNTER 2020-07-03 12:24 | Outpatient (CLI) | payer MEDICARE ==
[2020-07-03 14:50] LABS: INR 2.9 (0.8-1.2)
== END 2020-07-03 12:25 | disposition home or self-care (01) ==
LOC: LAB.S 12:24
PROVIDERS: ATTEND Family Medicine
DX: Z79.01 Long term (current) use of anticoagulants (principal); Z95.2 Presence of prosthetic heart valve
CPT/HCPCS: 36415; 85610

== ENCOUNTER 2020-07-16 16:33 | Outpatient (CLI) | payer MEDICARE ==
[2020-07-16 19:56] LABS: INR 2.4 (0.8-1.2); PT - PROTHROMBIN TIME 25.1 secs (9.9-12.6)
== END 2020-07-16 16:34 | disposition home or self-care (01) ==
LOC: LAB.S 16:33
PROVIDERS: ATTEND Family Medicine
DX: Z79.01 Long term (current) use of anticoagulants (principal); Z95.2 Presence of prosthetic heart valve
CPT/HCPCS: 36415; 85610

== ENCOUNTER 2020-07-29 11:03 | Outpatient (CLI) | payer MEDICARE ==
[2020-07-29 15:41] LABS: INR 2.9 (0.8-1.2); PT - PROTHROMBIN TIME 29.9 secs (9.9-12.6)
== END 2020-07-29 11:04 | disposition home or self-care (01) ==
LOC: LAB.S 11:03
PROVIDERS: ATTEND Family Medicine
DX: Z79.01 Long term (current) use of anticoagulants (principal); Z95.2 Presence of prosthetic heart valve
CPT/HCPCS: 36415; 85610

== ENCOUNTER 2020-08-13 16:38 | Outpatient (CLI) | payer MEDICARE ==
[2020-08-13 20:42] LABS: INR 3.7 (0.8-1.2); PT - PROTHROMBIN TIME 38.4 secs (9.9-12.6)
== END 2020-08-13 16:39 | disposition home or self-care (01) ==
LOC: LAB.S 16:38
PROVIDERS: ATTEND Family Medicine
DX: Z95.2 Presence of prosthetic heart valve (principal); Z79.01 Long term (current) use of anticoagulants
CPT/HCPCS: 36415; 85610

== ENCOUNTER 2020-09-01 16:15 | Outpatient (CLI) | payer MEDICARE | END 2020-09-01 16:16 | disposition critical access hospital (66) | LOC: EMS 16:15 | DX: R51.9 Headache, unspecified (principal); R42 Dizziness and giddiness | CPT/HCPCS: A0425; A0429 ==

== ENCOUNTER 2020-09-01 16:51 | Emergency (ER) | payer MEDICARE ==
[2020-09-01 18:18] LABS: BILIRUBIN,URINE NEGATIVE (NEGATIVE); GLUCOSE, URINE (UA) NEGATIVE (NEGATIVE); KETONES,URINE (UA) NEGATIVE (NEGATIVE); LEUKOCYTE ESTERASE, URINE SMALL (NEGATIVE); NITRITE,URINE POSITIVE (NEGATIVE); OCCULT BLOOD,URINE SMALL (NEGATIVE); PROTEIN,URINE NEGATIVE (NEGATIVE); UROBILINOGEN,URINE 0.2 (NORMAL) E.U./dL (NORMAL)
[2020-09-01 18:23] LABS: BACTERIA,URINE Many /HPF (None Seen); CLARITY,URINE CLEAR (CLEAR); SQUAMOUS EPITHELIAL CELL,UR FEW Squamous (<= Few)
[2020-09-01 18:38] LABS: BASOPHILS # (AUTO) 0.1 10^3/uL (0.0-0.1); BASOPHILS % (AUTO) 0.7 %; EOSINOPHILS # (AUTO) 0.2 10^3/uL (0.0-0.7); EOSINOPHILS % (AUTO) 2.2 %; HGB - HEMOGLOBIN 10.2 g/dL (12.0-16.0); LYMPHOCYTES # (AUTO) 1.8 10^3/uL (1.5-3.5); LYMPHOCYTES % (AUTO) 25.1 %; MEAN CORPUSCULAR HEMOGLOBIN 30.4 pg (27.0-31.0); MEAN CORPUSCULAR HGB CONC 30.7 g/dL (32.0-36.0); MEAN CORPUSCULAR VOLUME 98.8 fL (81.0-99.0); MEAN PLATELET VOLUME 9.9 fL (7.9-10.8); MONOCYTES # (AUTO) 0.5 10^3/uL (0.0-1.0); MONOCYTES % (AUTO) 6.4 %; NEUTROPHILS # (AUTO) 4.7 10^3/uL (1.5-6.6); NEUTROPHILS % (AUTO) 65.3 %; PLT - PLATELET COUNT 187 10^3/uL (130-450); RED BLOOD COUNT 3.36 10^6/uL (4.20-5.40); RED CELL DISTRIBUTION WIDTH 14.1 % (12.0-15.0); WHITE BLOOD COUNT 7.2 x10^3/uL (4.8-10.8)
[2020-09-01 18:45] LABS: INR 3.1 (0.8-1.2); PT - PROTHROMBIN TIME 32.4 secs (9.9-12.6)
[2020-09-01 18:51] LABS: ALBUMIN 4.1 g/dL (3.2-5.5); ALBUMIN/GLOBULIN RATIO 1.4 (1.0-2.2); BILIRUBIN,TOTAL 0.4 mg/dL (0.2-1.0); CALCIUM 9.2 mg/dL (8.5-10.3); CREATININE 1.5 mg/dL (0.4-1.0)
--- NOTE | 2020-09-01 19:02 | CT Report ---
PROCEDURE: HEAD WO INDICATIONS: dizzy, off balance TECHNIQUE: Noncontrast 4.5 mm thick angled axial sections acquired from the foramen magnum to the vertex. For r adiation dose reduction, the following was used: automated exposure control, adjustment of mA and/or kV according to patient size. COMPARISON: None. FINDINGS: Image quality: Excellent. CSF spaces: Basal cisterns are patent. No extra-axial fluid collections. Ventricles are normal in size and shape. Brain: No midline shift. No intracranial masses or hemorrhage. Latif-white matter interface is norm al. There is focal volume loss seen involving the left temporal lobe. Skull and face: Calvarium and visualized facial bones are intact, without suspicious lesions. Sinuses: Visualized sinuses and mastoids are clear. IMPRESSION: Limited study demonstrating no definite, acute intracranial process. If it would be helpful for clinical management decision making, please consider a dedicated brain MRI for further evaluation (assuming that there is no contraindication). Focal volume loss is seen involving the anterior aspect of the left temporal lobe. Differential diagn osis includes a remote infarction or an unusual arachnoid cyst. Reviewed by: Ruben Royal MD on 09/01/2020 6:00 PM [facility] Approved by: Ruben Royal MD on 09/01/2020 6:00 PM [facility] Station ID: [id number]
[2020-09-01] MEDS ORDERED: cephALEXin 250 MG CAPSULE PO STA (19:05)
--- NOTE | 2020-09-01 19:05 | ED Physician Documentation ---
History of Present Illness - Stated complaint Stated Complaint: DIZZINESS - Chief complaint Chief Complaint: Neuro - History obtained from History obtained from: Patient - History of Present Illness Timing: Today Pain level max: 0 Pain level now: 0 - Additonal information Additional information: Patient is a 55-year-old female who presents to the emergency department today with feeling like the room was spinning around her earlier. She tried to get out of a chair and felt like the room was spinning. She states it was better when she closed her eyes and holds her head still. Symptoms have now resolved. Worse with movement, better with rest. No recent illnesses. No recent travel. No medication changes. Review of Systems Ten Systems: 10 systems reviewed and negative Constitutional: denies: Fever, Chills Eyes: denies: Decreased vision Ears: denies: Ear pain Nose: denies: Rhinorrhea / runny nose, Congestion Respiratory: denies: Cough GI: denies: Nausea, Vomiting, Diarrhea Skin: denies: Rash Musculoskeletal: denies: Neck pain, Back pain Neurologic: denies: Focal weakness, Numbness, Seizure, Confused, Head injury, LOC PD PAST MEDICAL HISTORY - Past Medical History Past Medical History: Yes Cardiovascular: Hypertension, Arrhythmia, Valve disorder Respiratory: COPD Neuro: Seizure disorder Psych: Anxiety - Past Surgical History Past Surgical History: Yes Cardiovascular: Valve replacement Neuro: Other HEENT: Tonsil/Adenoidectomy - Present Medications Home Medications: Ambulatory Orders Medication Instructions Recorded Confirmed Albuterol Sulfate [Proventil Hfa 2 puffs INH PRN PRN 05/11/19 05/11/19 Inhaler] Beclomethasone 40 Mcg [Qvar 40] 1 puffs INH PRN PRN 05/11/19 05/11/19 Duloxetine HCl [Cymbalta] 60 mg PO DAILY 05/11/19 05/11/19 Famotidine [Pepcid] 20 mg PO BID 05/11/19 05/11/19 Hydrocodone/Acetaminophen 1 tab PO PRN PRN 05/11/19 05/11/19 [Hydrocodone-Acetamin 10-325 mg] Levetiracetam [Keppra] 500 mg PO BID 05/11/19 05/11/19 QUEtiapine [SEROquel] 200 mg PO DAILY PM 05/11/19 05/11/19 Warfarin [Coumadin] 10 mg PO 1400 05/11/19 05/11/19 buPROPion HCl [Wellbutrin Sr] 200 mg PO DAILY 05/11/19 05/11/19 busPIRone [Buspar] 2 mg PO DAILY 05/11/19 05/11/19 lisinopriL [Lisinopril] 10 mg PO DAILY 05/11/19 05/11/19 cephALEXin [Keflex] 500 mg PO Q6H #20 cap 09/01/20 - Allergies Allergies/Adverse Reactions: Allergies Allergy/AdvReac Type Severity Reaction Status Date / Time No Known Drug Allergies Allergy Verified 09/01/20 17:06 - Social History Does the pt smoke?: Yes Smoking Status: Current every day smoker Does the pt drink ETOH?: No Does the pt have substance abuse?: No - Immunizations Immunizations are current?: Yes - POLST Patient has POLST: No PD ED PE NORMAL - Vitals Vital signs reviewed: Yes - General General: Alert and oriented X 3, No acute distress, Well developed/nourished - HEENT HEENT: Atraumatic, PERRL, EOMI, Ears normal, Moist mucous membranes, Pharynx benign - Neck Neck: Supple, no meningeal sign, No bony TTP - Cardiac Cardiac: RRR, Strong equal pulses - Respiratory Respiratory: No respiratory distress, Clear bilaterally - Abdomen Abdomen: Soft, Non tender, Non distended - Back Back: No spinal TTP - Derm Derm: Warm and dry, No rash - Extremities Extremities: No edema - Neuro Neuro: Alert and oriented X 3, food production supervisor 2-12 intact, No motor deficit, No sensory deficit, Normal speech, Other (Normal cerebellar testing) Eye Opening: Spontaneous Motor: Obeys Commands Verbal: Oriented GCS Score: 15 - Psych Psych: Normal mood, Normal affect Results - Vitals Vitals: Vital Signs - 24 hr 09/01/20 09/01/20 09/01/20 16:50 17:14 18:37 Temperature 36.7 C Heart Rate 98 89 92 Respiratory 18 16 16 Rate Blood Pressure 112/55 L 121/85 H 120/74 O2 Saturation 100 97 97 09/01/20 19:00 Temperature Heart Rate 90 Respiratory 18 Rate Blood Pressure 122/68 O2 Saturation 96 Oxygen O2 Source Room air - Labs Labs: Laboratory Tests 09/01/20 09/01/20 09/01/20 18:07 18:20 18:20 WBC 7.2 RBC 3.36 L Hgb 10.2 L Hct 33.2 L MCV 98.8 MCH 30.4 MCHC 30.7 L RDW 14.1 Plt Count 187 MPV 9.9 Neut # (Auto) 4.7 Lymph # (Auto) 1.8 [facility] # (Auto) 0.5 Eos # (Auto) 0.2 Baso # (Auto) 0.1 Absolute Nucleated RBC 0.00 Nucleated RBC % 0.0 PT INR Sodium 140 Potassium 4.6 Chloride 106 Carbon Dioxide 22 Anion Gap 12.0 BUN 28 H Creatinine 1.5 H Estimated GFR (MDRD) 36 L Glucose 97 Calcium 9.2 Total Bilirubin 0.4 AST 19 ALT 15 Alkaline Phosphatase 52 Total Protein 7.0 Albumin 4.1 Globulin 2.9 Albumin/Globulin Ratio 1.4 Urine Color YELLOW Urine Clarity CLEAR Urine pH 6.0 Ur Specific [place] 1.025 Urine Protein NEGATIVE Urine Glucose (UA) NEGATIVE Urine Ketones NEGATIVE Urine Occult Blood SMALL H Urine Nitrite POSITIVE H Urine Bilirubin NEGATIVE Urine Urobilinogen 0.2 (NORMAL) Ur Leukocyte Esterase SMALL H Urine RBC 6-10 H Urine WBC 6-10 H Ur Squamous Epith Cells FEW Squamous Urine Bacteria Many H Urine Culture Comments INDICATED 09/01/20 18:20 WBC RBC Hgb Hct MCV MCH MCHC RDW Plt Count MPV Neut # (Auto) Lymph # (Auto) [facility] # (Auto) Eos # (Auto) Baso # (Auto) Absolute Nucleated RBC Nucleated RBC % PT 32.4 H INR 3.1 H Sodium Potassium Chloride Carbon Dioxide Anion Gap BUN Creatinine Estimated GFR (MDRD) Glucose Calcium Total Bilirubin AST ALT Alkaline Phosphatase Total Protein Albumin Globulin Albumin/Globulin Ratio Urine Color Urine Clarity Urine pH Ur Specific [place] Urine Protein Urine Glucose (UA) Urine Ketones Urine Occult Blood Urine Nitrite Urine Bilirubin Urine Urobilinogen Ur Leukocyte Esterase Urine RBC Urine WBC Ur Squamous Epith Cells Urine Bacteria Urine Culture Comments - Rads (name of study) head CT Radiology: Prelim report reviewed, EMP read contemporaneously, See rad report PD MEDICAL DECISION MAKING - ED course Complexity details: reviewed results, re-evaluated patient, considered differential (no TIA or stroke. ), d/w patient, d/w family ED course: 55-year-old female presents to the emergency department with what appears to be BPPV. Symptoms fully resolved prior to arrival in the emergency department. Patient is well-appearing, nontoxic. Afebrile. No focal neurological deficits. We will treat for UTI as well. Patient counseled regarding signs and symptoms for which I believe and urgent re-evaluation would be necessary. Patient with good understanding of and agreement to plan and is comfortable going home at this time This document was made in part using voice recognition software. While efforts are made to proofread this document, sound alike and grammatical errors may occur. IMPRESSION: Limited study demonstrating no definite, acute intracranial process. If it would be helpful for clinical management decision making, please consider a dedicated brain MRI for further evaluation (assuming that there is no contraindication). Focal volume loss is seen involving the anterior aspect of the left temporal lobe. Differential diagnosis includes a remote infarction or an unusual arachnoid cyst. Departure - Departure Disposition: 01 Home, Self Care Clinical Impression: Vertigo UTI (urinary tract infection) Qualifiers: Urinary tract infection type: acute cystitis Hematuria presence: without hematuria Qualified Code(s): N30.00 - Acute cystitis without hematuria Condition: Good Instructions: ED BPV Vertigo, ED UTI Cystitis Female Follow-Up: Alex Pozo MD [Primary Care Provider] - Within 1 week Prescriptions: cephALEXin [Keflex] 500 mg PO Q6H #20 cap Comments: Take all antibiotics until gone. Return if you worsen. Drink plenty of fluids. It appears that you had an episode of vertigo today. There are no acute findings on your laboratory testing or head CT other than a UTI. Follow-up with your doctor for further care. Your INR is 3.1 Discharge Date/Time: 09/01/20 19:17
[2020-09-01 19:17] VITALS: BP 122/68
== END 2020-09-01 19:17 | disposition home or self-care (01) ==
LOC: EDUNIT# → ED 16:51
DX: R42 Dizziness and giddiness (principal); N30.00 Acute cystitis without hematuria; I10 Essential (primary) hypertension; Z95.2 Presence of prosthetic heart valve; Z79.01 Long term (current) use of anticoagulants; F17.200 Nicotine dependence, unspecified, uncomplicated
CPT/HCPCS: 36415; 70450; 80053; 81001; 85025; 85610; 87086; 99284; A9270; 87077; 87181

== ENCOUNTER 2020-09-15 17:12 | Outpatient (CLI) | payer MEDICARE ==
[2020-09-15 19:48] LABS: INR 3.1 (0.8-1.2); PT - PROTHROMBIN TIME 31.8 secs (9.9-12.6)
== END 2020-09-15 17:13 | disposition home or self-care (01) ==
LOC: LAB.S 17:12
PROVIDERS: ATTEND Family Medicine
DX: Z79.01 Long term (current) use of anticoagulants (principal); Z95.2 Presence of prosthetic heart valve
CPT/HCPCS: 36415; 85610

== ENCOUNTER 2020-09-30 16:40 | Outpatient (CLI) | payer MEDICARE ==
[2020-09-30 20:06] LABS: INR 5.6 (0.8-1.2)
== END 2020-09-30 16:41 | disposition home or self-care (01) ==
LOC: LAB.S 16:40
PROVIDERS: ATTEND Family Medicine
DX: Z79.01 Long term (current) use of anticoagulants (principal); Z95.2 Presence of prosthetic heart valve
CPT/HCPCS: 36415; 85610

== ENCOUNTER 2020-10-05 12:58 | Outpatient (CLI) | payer MEDICARE ==
[2020-10-05 18:17] LABS: PT - PROTHROMBIN TIME 21.7 secs (9.9-12.6)
== END 2020-10-05 12:59 | disposition home or self-care (01) ==
LOC: LAB.S 12:58
PROVIDERS: ATTEND Family Medicine
DX: Z79.01 Long term (current) use of anticoagulants (principal); Z95.2 Presence of prosthetic heart valve
CPT/HCPCS: 36415; 85610

== ENCOUNTER 2020-10-12 15:35 | Outpatient (CLI) | payer MEDICARE ==
[2020-10-12 19:24] LABS: INR 3.5 (0.8-1.2); PT - PROTHROMBIN TIME 35.6 secs (9.9-12.6)
== END 2020-10-12 15:36 | disposition home or self-care (01) ==
LOC: LAB.S 15:35
PROVIDERS: ATTEND Family Medicine
DX: Z79.01 Long term (current) use of anticoagulants (principal); Z95.2 Presence of prosthetic heart valve
CPT/HCPCS: 85610

== ENCOUNTER 2020-11-02 12:08 | Outpatient (CLI) | payer MEDICARE ==
[2020-11-02 18:21] LABS: INR 2.2 (0.8-1.2); PT - PROTHROMBIN TIME 23.7 secs (9.9-12.6)
== END 2020-11-02 12:09 | disposition home or self-care (01) ==
LOC: LAB.S 12:08
PROVIDERS: ATTEND Family Medicine
DX: Z79.01 Long term (current) use of anticoagulants (principal); Z95.2 Presence of prosthetic heart valve
CPT/HCPCS: 36415; 85610

== ENCOUNTER 2020-11-17 13:51 | Outpatient (CLI) | payer MEDICARE ==
[2020-11-17 20:05] LABS: PT - PROTHROMBIN TIME 50.9 secs (9.9-12.6)
[2020-11-17 20:41] LABS: INR 5.1 (0.8-1.2)
== END 2020-11-17 13:52 | disposition home or self-care (01) ==
LOC: LAB.S 13:51
PROVIDERS: ATTEND Family Medicine
DX: Z79.01 Long term (current) use of anticoagulants (principal); Z95.2 Presence of prosthetic heart valve
CPT/HCPCS: 36415; 85610

== ENCOUNTER 2020-11-20 18:19 | Outpatient (CLI) | payer MEDICARE ==
[2020-11-20 20:07] LABS: INR 2.3 (0.8-1.2); PT - PROTHROMBIN TIME 24.3 secs (9.9-12.6)
== END 2020-11-20 18:20 | disposition home or self-care (01) ==
LOC: LAB.S 18:19
PROVIDERS: ATTEND Family Medicine
DX: Z79.01 Long term (current) use of anticoagulants (principal); Z95.2 Presence of prosthetic heart valve
CPT/HCPCS: 36415; 85610

== ENCOUNTER 2020-11-24 15:49 | Outpatient (CLI) | payer MEDICARE ==
[2020-11-24 21:02] LABS: INR 2.4 (0.8-1.2)
[2020-11-25 14:01] LABS: PT - PROTHROMBIN TIME 25.6 secs (9.9-12.6)
== END 2020-11-24 15:50 | disposition home or self-care (01) ==
LOC: LAB.S 15:49
PROVIDERS: ATTEND Family Medicine
DX: Z79.01 Long term (current) use of anticoagulants (principal); Z95.2 Presence of prosthetic heart valve; E87.5 Hyperkalemia
CPT/HCPCS: 36415; 85610

== ENCOUNTER 2020-12-07 13:34 | Outpatient (CLI) | payer MEDICARE ==
[2020-12-07 18:02] LABS: INR 2.5 (0.8-1.2); PT - PROTHROMBIN TIME 26.5 secs (9.9-12.6)
== END 2020-12-07 13:35 | disposition home or self-care (01) ==
LOC: LAB.S 13:34
PROVIDERS: ATTEND Family Medicine
DX: Z79.01 Long term (current) use of anticoagulants (principal); Z95.2 Presence of prosthetic heart valve
CPT/HCPCS: 36415; 85610

== ENCOUNTER 2020-12-28 12:08 | Outpatient (CLI) | payer MEDICARE ==
[2020-12-28 18:47] LABS: INR 3.4 (0.8-1.2); PT - PROTHROMBIN TIME 34.6 secs (9.9-12.6)
== END 2020-12-28 12:09 | disposition home or self-care (01) ==
LOC: LAB.S 12:08
PROVIDERS: ATTEND Family Medicine
DX: Z95.2 Presence of prosthetic heart valve (principal); Z79.01 Long term (current) use of anticoagulants
CPT/HCPCS: 36415; 85610

== ENCOUNTER 2021-01-01 23:14 | Emergency (ER) | payer MEDICARE ==
[2021-01-02] MEDS ORDERED: BUFFERED LIDOCAINE 10 ML SYRINGE IU ONE (00:04)
--- NOTE | 2021-01-02 00:06 | ED Physician Documentation ---
PD HPI UPPER EXT INJURY - Stated complaint Stated Complaint: R INDEX LAC - Chief complaint Chief Complaint: Laceration - History obtained from History obtained from: Patient - Additonal information Additional information: Patient comes emergency department chief complaint of right index finger laceration after slamming finger in a door at home. Patient states that she is on anticoagulants and the wound has continued to bleed. Patient denies any other injuries. She states injury happened just before she came to the emergency department. Last tetanus within 10 years. Review of Systems Ten Systems: 10 systems reviewed and negative Constitutional: reports: Reviewed and negative Eyes: reports: Reviewed and negative Ears: reports: Reviewed and negative Nose: reports: Reviewed and negative Throat: reports: Reviewed and negative Cardiac: reports: Reviewed and negative Respiratory: reports: Reviewed and negative GI: reports: Reviewed and negative : reports: Reviewed and negative Skin: reports: Laceration (s) Musculoskeletal: reports: Reviewed and negative Neurologic: reports: Reviewed and negative Psychiatric: reports: Reviewed and negative Endocrine: reports: Reviewed and negative Immunocompromised: reports: Reviewed and negative PD PAST MEDICAL HISTORY - Past Medical History Cardiovascular: Hypertension, Arrhythmia, Valve disorder Respiratory: COPD Neuro: Seizure disorder Psych: Anxiety - Past Surgical History Past Surgical History: Yes Cardiovascular: Valve replacement Neuro: Other HEENT: Tonsil/Adenoidectomy - Present Medications Home Medications: Ambulatory Orders Medication Instructions Recorded Confirmed Albuterol Sulfate [Proventil Hfa 2 puffs INH PRN PRN 05/11/19 01/02/21 Inhaler] Beclomethasone 40 Mcg [Qvar 40] 1 puffs INH PRN PRN 05/11/19 01/02/21 Duloxetine HCl [Cymbalta] 60 mg PO DAILY 05/11/19 01/02/21 Famotidine [Pepcid] 20 mg PO BID 05/11/19 01/02/21 Hydrocodone/Acetaminophen 1 tab PO PRN PRN 05/11/19 01/02/21 [Hydrocodone-Acetamin 10-325 mg] Levetiracetam [Keppra] 500 mg PO BID 05/11/19 01/02/21 QUEtiapine [SEROquel] 200 mg PO DAILY PM 05/11/19 01/02/21 Warfarin [Coumadin] 10 mg PO 1400 05/11/19 01/02/21 buPROPion HCl [Wellbutrin Sr] 200 mg PO DAILY 05/11/19 01/02/21 busPIRone [Buspar] 2 mg PO DAILY 05/11/19 01/02/21 lisinopriL [Lisinopril] 10 mg PO DAILY 05/11/19 01/02/21 cephALEXin [Keflex] 500 mg PO Q6H #20 cap 09/01/20 01/02/21 cephALEXin [Keflex] 500 mg PO Q6H #28 01/02/21 - Allergies Allergies/Adverse Reactions: Allergies Allergy/AdvReac Type Severity Reaction Status Date / Time No Known Drug Allergies Allergy Verified 01/01/21 23:18 - Social History Does the pt smoke?: Yes Smoking Status: Current every day smoker Does the pt drink ETOH?: No Does the pt have substance abuse?: No - Immunizations Immunizations are current?: Yes - POLST Patient has POLST: No PD ED PE NORMAL - Vitals Vital signs reviewed: Yes - General General: Alert and oriented X 3, No acute distress, Well developed/nourished - HEENT HEENT: Atraumatic, PERRL, EOMI, Moist mucous membranes - Neck Neck: Supple, no meningeal sign - Cardiac Cardiac: Strong equal pulses - Respiratory Respiratory: No respiratory distress - Derm Derm: Normal color, Warm and dry, Other (Partial avulsion right index finger tip on flexor surface. Edges of lacerated flap involve skin avulsion only. Tiny subungual contusion. No nail or nailbed compromise otherwise.) - Extremities Extremities: No deformity, No edema - Neuro Neuro: Alert and oriented X 3 - Psych Psych: Normal mood, Normal affect Results - Vitals Vitals: Vital Signs - 24 hr 01/01/21 01/02/21 01/02/21 23:18 00:30 01:43 Temperature 36.5 C 36.9 C Heart Rate 100 94 93 Respiratory 16 16 22 Rate Blood Pressure 125/61 94/57 L 93/52 L O2 Saturation 98 95 01/02/21 02:30 Temperature 36.9 C Heart Rate 93 Respiratory 22 Rate Blood Pressure 93/50 L O2 Saturation 95 Oxygen O2 Source Room air - Rads (name of study) XR R index finger Radiology: Final report received, EMP read indepedently, See rad report (distal phalanx fx) Procedures - Laceration (location) R index finger Length in cm: 2.5 Wound type: Flap, Into subcut fat, Clean Neurovascular status: Sensory intact, Motor intact, Vascular intact Tendon involvement: No: Tendon Injury Anesthesia: Lidocaine 1%, With bicarb Wound preparation: Hibiclens, Irrigated copiously NS, Wound explored, To the base. No: FB identified Skin layer closure: Nylon, Interrupted, Size #-0 - enter number (5.0), Sutures - enter # (4) Other: Patient tolerated well, No complications, Neurovascular intact, Dressing applied, Tetanus UTD PD MEDICAL DECISION MAKING - ED course Complexity details: reviewed results, re-evaluated patient, considered differential, d/w patient, d/w family ED course: Wound was repaired as above. A portion of the laceration could not be repaired, due to tissue avulsion. Bleeding was controlled after repair. Patient underwent x-ray of the affected finger, and was found to have a distal phalanx fracture. Patient was placed with give the Keflex for her open fracture. I have advised her of the need for follow-up in 7 days and suture removal by medical professional in 7 to 10 days. Patient should take a full course of Keflex during this time. We have discussed the usual indications for return. Departure - Departure Disposition: 01 Home, Self Care Clinical Impression: Laceration, Open fracture of tuft of distal phalanx of finger Condition: Stable Instructions: ED Fx Finger Open, ED Laceration Ext Sutr Stap Tape Follow-Up: Benny Mcbride MD [Provider Admit Priv/Credential] - Prescriptions: cephALEXin [Keflex] 500 mg PO Q6H #28 Comments: Your x-ray shows a crack through the tip of the bone of your finger. This is not an uncommon injury when a finger is smashed in a door. The bone is still in place, however, and should heal well. Your wound has been sutured tonight. Although some of the flush and skin is missing from the fingertip, the wound is expected to heal well in time. You should have your wound rechecked in 7 days, and the sutures removed in 7 to 10 days. You may follow-up with your primary care physician for this. If you have any further issues with the finger, you may follow-up with orthopedics, and the number of which has been given. If you begin to notice redness and swelling spreading progressively away from the wound, or if the wound drains thick drainage that appears like pus, you should have the wound rechecked right away. Do not rub, scrub, or immerse the wound until the sutures are removed. This is to prevent infection. You may allow water and soap to run over the wound, however. Please also take the antibiotics prescribed to prevent any infection from developing in the broken part of the bone. Discharge Date/Time: 01/02/21 02:38
[2021-01-02] MEDS ORDERED: BACITRACIN ZINC OINT 1 PACKET TOP STA (01:20)
[2021-01-02] MEDS ORDERED: cephALEXin 250 MG CAPSULE PO STA (01:56)
[2021-01-02 02:44] VITALS: BP 93/50
--- NOTE | 2021-01-02 08:30 | XRAY Report ---
PROCEDURE: Finger(s) RT INDICATIONS: crush injury TECHNIQUE: AP hand, 2 views of the index finger(s) acquired. COMPARISON: None. FINDINGS: Bones: Subtle radiolucency through the distal shaft of second distal phalanx suggestive of a nondispl aced fracture. No other fracture or dislocation is seen. No suspicious bony lesions. Soft tissues: No suspicious soft tissue calcifications. Soft tissue swelling surrounding distal por tion of second digit is seen. IMPRESSION: Finding is suggestive of a nondisplaced fracture through distal shaft of second distal phalanx. No discrepancies from preliminary reading. Reviewed by: Fercho Wilkins MD on 01/02/2021 8:29 AM PDT Approved by: Fercho Wilkins MD on 01/02/2021 8:29 AM PDT Station ID: [id number]
== END 2021-01-02 02:38 | disposition home or self-care (01) ==
LOC: ED 23:14
DX: S62.660B Nondisplaced fracture of distal phalanx of right index finger, initial encounter for open fracture (principal); W23.0XXA Caught, crushed, jammed, or pinched between moving objects, initial encounter; Y92.009 Unspecified place in unspecified non-institutional (private) residence as the place of occurrence of the external cause; Z95.2 Presence of prosthetic heart valve; Z79.01 Long term (current) use of anticoagulants; F17.200 Nicotine dependence, unspecified, uncomplicated
CPT/HCPCS: 12001; 73140; 99283; A9270

== ENCOUNTER 2021-01-16 12:52 | Outpatient (CLI) | payer MEDICARE ==
--- NOTE | 2021-01-16 13:54 | XRAY Report ---
PROCEDURE: Lumbar Spine 2 View INDICATIONS: NECK AND BACK PAIN TECHNIQUE: 2 views of the lumbar spine were acquired. COMPARISON: None. FINDINGS: Bones: 5 [id number] vertebrae are present. There is normal bony alignment. Degenerative endpla te changes and bilateral facet arthrosis at L3-4 through L5-S1 levels are seen. No vertebral body com pression fractures. No suspicious bony lesions. Soft tissues: Overlying bowel gas pattern is normal. No suspicious soft tissue calcifications. IMPRESSION: Degenerative disc disease in lower lumbar spine. No acute compression fracture or spondy lolisthesis. Reviewed by: Fercho Wilkins MD on 01/16/2021 1:53 PM PDT Approved by: Fercho Wilkins MD on 01/16/2021 1:53 PM PDT Station ID: [id number]
--- NOTE | 2021-01-16 13:55 | XRAY Report ---
PROCEDURE: Cervical Spine 2 View INDICATIONS: NECK AND BACK PAIN TECHNIQUE: 4 view(s) of the cervical spine were acquired. COMPARISON: None. FINDINGS: Bones: No fractures or dislocations to the C7-T1 level. Straightening of normal cervical lordosis is seen. Degenerative endplate changes are noted at C4-5, C5-6 and C6-7 levels. The lateral masses of C 1 appear intact on the odontoid view. No suspicious bony lesions. Soft tissues: No prevertebral soft tissue swelling. IMPRESSION: Mild degenerative disc disease in mid to lower cervical spine. No fracture or dislocatio n. Reviewed by: Fercho Wilkins MD on 01/16/2021 1:53 PM PDT Approved by: Fercho Wilkins MD on 01/16/2021 1:53 PM PDT Station ID: [id number]
--- NOTE | 2021-01-16 13:58 | XRAY Report ---
PROCEDURE: Chest 2 View X-Ray INDICATIONS: Wheezing. Smoking history. TECHNIQUE: 2 view(s) of the chest. COMPARISON: Chest and rib radiographs 05/11/2019. CXR 06/16/2015. FINDINGS: Surgical changes and devices: Post median sternotomy and valve replacements. Lungs and pleura: No pleural effusions or pneumothorax. Mild perihilar airspace opacity bilaterally. There is also airspace opacity at the lung bases and retrocardiac. Nodular opacity in the right uppe r lobe. Mediastinum: Mediastinal contours are unchanged. Heart size is at the upper limits of normal. Bones and chest wall: No suspicious bony abnormalities. Soft tissues appear unremarkable. IMPRESSION: 1. Suspect mild fluid overload/CHF. 2. Right upper lobe nodular opacity. Suspect pulmonary nodule. Pulmonary infiltrate could have a milan lar appearance. -Recommend further evaluation with CT of the chest. Results were conveyed to Melinda Valladares triage nurse at 01/16/2021 1:53 PM PDT. Reviewed by: Duong Pak MD on 01/16/2021 1:56 PM PDT Approved by: Duong Pak MD on 01/16/2021 1:56 PM PDT Station ID: [id number]
[2021-01-16 14:49] LABS: INR 2.1 (0.8-1.2); PT - PROTHROMBIN TIME 22.9 secs (9.9-12.6)
== END 2021-01-16 12:53 | disposition home or self-care (01) ==
LOC: DI.S 12:52
PROVIDERS: ATTEND Family Medicine
DX: R91.8 Other nonspecific abnormal finding of lung field (principal); M50.321 Other cervical disc degeneration at C4-C5 level; M47.816 Spondylosis without myelopathy or radiculopathy, lumbar region; M47.817 Spondylosis without myelopathy or radiculopathy, lumbosacral region; M51.36 Other intervertebral disc degeneration, lumbar region; M51.37 Other intervertebral disc degeneration, lumbosacral region; Z79.01 Long term (current) use of anticoagulants; Z95.2 Presence of prosthetic heart valve
CPT/HCPCS: 36415; 85610

== ENCOUNTER 2021-01-21 17:43 | Outpatient (CLI) | payer MEDICARE ==
[2021-01-21 20:28] LABS: BASOPHILS # (AUTO) 0.1 10^3/uL (0.0-0.1); BASOPHILS % (AUTO) 0.7 %; EOSINOPHILS # (AUTO) 0.2 10^3/uL (0.0-0.7); HGB - HEMOGLOBIN 11.4 g/dL (12.0-16.0); LYMPHOCYTES # (AUTO) 1.7 10^3/uL (1.5-3.5); LYMPHOCYTES % (AUTO) 20.5 %; MEAN CORPUSCULAR HEMOGLOBIN 30.7 pg (27.0-31.0); MEAN CORPUSCULAR HGB CONC 31.7 g/dL (32.0-36.0); MONOCYTES # (AUTO) 0.5 10^3/uL (0.0-1.0); MONOCYTES % (AUTO) 6.3 %; NEUTROPHILS # (AUTO) 5.6 10^3/uL (1.5-6.6); NEUTROPHILS % (AUTO) 69.3 %; PLT - PLATELET COUNT 243 10^3/uL (130-450); RED BLOOD COUNT 3.71 10^6/uL (4.20-5.40); RED CELL DISTRIBUTION WIDTH 13.9 % (12.0-15.0); WHITE BLOOD COUNT 8.1 x10^3/uL (4.8-10.8)
[2021-01-21 20:34] LABS: INR 2.4 (0.8-1.2); PT - PROTHROMBIN TIME 25.9 secs (9.9-12.6)
[2021-01-21 20:38] LABS: ALBUMIN 4.3 g/dL (3.2-5.5); ALBUMIN/GLOBULIN RATIO 1.4 (1.0-2.2); BILIRUBIN,TOTAL 0.8 mg/dL (0.2-1.0); CALCIUM 8.8 mg/dL (8.5-10.3); CREATININE 1.4 mg/dL (0.4-1.0); POTASSIUM 4.1 mmol/L (3.5-5.0); TOTAL PROTEIN 7.3 g/dL (6.7-8.2)
== END 2021-01-21 17:44 | disposition home or self-care (01) ==
LOC: LAB.S 17:43
PROVIDERS: ATTEND Internal Medicine
DX: R06.02 Shortness of breath (principal); Z79.899 Other long term (current) drug therapy; Z51.81 Encounter for therapeutic drug level monitoring; Z79.01 Long term (current) use of anticoagulants; Z95.2 Presence of prosthetic heart valve
CPT/HCPCS: 36415; 80053; 83880; 85025; 85610

== ENCOUNTER 2021-01-30 15:05 | Outpatient (CLI) | payer MEDICARE ==
[2021-01-30 15:36] LABS: INR 2.4 (0.8-1.2)
== END 2021-01-30 15:06 | disposition home or self-care (01) ==
LOC: LAB 15:05
PROVIDERS: ATTEND Internal Medicine
DX: Z79.01 Long term (current) use of anticoagulants (principal); Z95.2 Presence of prosthetic heart valve
CPT/HCPCS: 36415; 85610

== ENCOUNTER 2021-03-10 14:44 | Outpatient (CLI) | payer MEDICARE ==
[2021-03-10 20:15] LABS: INR 3.6 (0.8-1.2); PT - PROTHROMBIN TIME 37.2 secs (9.9-12.6)
== END 2021-03-10 14:45 | disposition home or self-care (01) ==
LOC: LAB.S 14:44
PROVIDERS: ATTEND Internal Medicine
DX: Z79.01 Long term (current) use of anticoagulants (principal); Z95.2 Presence of prosthetic heart valve
CPT/HCPCS: 36415; 85610

== ENCOUNTER 2021-03-11 09:50 | Outpatient (CLI) | payer MEDICARE ==
--- NOTE | 2021-03-11 20:21 | CONSULTATION NOTE ---
Palliative Care Consultation - Referral Referring Provider: Dr. Javan Carranza Time of Visit: [id number] Referral setting: Home Referral Reason: Lung Mass/Chronic Pain - Information Sources Records reviewed: Previous records reviewed History/Review of Systems obtained from: Patient, Family (daughter/TARI Leon) - History of Present Illness Brief History of Present Illness: This is a nael 55-year-old female who was seen and evaluated today with in her home for initial palliative care consultation due to right upper lobe lung mass that is presently being worked up and evaluated with chronic pain with her daughter/Carolyn MARC present. The patient has a longstanding history of tobacco use. She is presently still a smoker and has weaned down to half a pack per day. She has previously been up to 1 pack/day. She began smoking approximately around the age of 13. She has stopped in the past, cold turkey per her report approximately 4 times but ultimately returned to cigarette use. She has a chronic cough and phlegm. In recent years she has had pneumonia yearly. Her cough has gotten worse over the last 6 months to 1 year. She transferred PCPs that resulted in a work-up for her chronic cough and a right upper lobe mass was identified. It is highly suspicious for lung carcinoma given the patient's history of tobacco use. She is scheduled for a biopsy on 03/19 at [facility] and then to follow- up with her PCP her daughter reports that she has been approved for oncology visits through her insurance with [employer]. The patient reports that she gets short of breath with exertion. She feels short of breath when she gets the top of the stairs in the home. She also feels short of breath when she goes to the mailbox as well as some acute pain to her lower back. She has a history of chronic pain with no apparent cause and had been on hydrocodone 10 mg/acetaminophen 325 mg up to 5 times daily for several years. She did not wish to move forward with chronic pain management when she transitioned to a new PCP and has not had any opioid therapy since the beginning of December 2020. Unfortunately, the patient has had persistent pain most specifically to her right scapula that will radiate down her right arm. At times will be sharp and shooting and leave her in tears to the intensity of the pain. She is right- handed. She also does have periodic numbness to the right upper extremity. She denies dropping any items in her right hand. The mass in her right upper lobe is likely a contributing factor to this pain and underlying Neuropathic component. She is presently on duloxetine 60 mg twice daily and has been on this "for years." She has been taking acetaminophen 500 mg for the pain however, it has not been sufficient. Periodically, she has also taken [id number] motrin to further assist with the pain and has been more effective then the acetaminophen. She has also unfortunately developed benign brain tumors that were removed at [facility] in the early . This subsequently led to the cement fillings coming to the surface creating osteomyelitis and she had a plate to the scalp approximately 5 years ago. Approximately 3 years ago she developed acute kidney failure that was believed to be due to polypharmacy. She was taken off of Keppra and has not had any s eizure activity for a number of years. She was also on a UTI prophylaxis with an antibiotic however, she cannot recall the name of the oral antibiotic this was taken off at the time of her acute kidney failure. She does have a history of migraines and typically has them twice per month. She typically does not utilize her Imitrex as she prefers to avoid this if possible. She also sustained a CVA approximately 3 years ago before moving in with her daughter approximately 2 years ago. The only residual effect from her CVA has been some expressive aphasia with word finding issues and initially balance. She no longer has any difficulty with her balance and has no history of falls. She is presently on Coumadin therapy due to her history of manic chemical aortic and mitral valves. Her INR goal is 2.5-3.5. Denies any bleeding. This is a well groomed, articulate woman who is seen in the living room with no evidence of acute distress. Cardiology: Dr. Stokes Medical/Surgical History - Past Medical History Cardiovascular: reports: Congestive heart failure, Hypertension, Arrhythmia, Valve disorder (Aorta and Mitral Valve Replacement with mechanical valves) Respiratory: reports: Asthma, Sleep apnea Neuro: CVA, Seizure disorder (no longer on keppra and without seizure activity for years), Other (Benign brain tumors-removed 1989) Endocrine/Autoimmune: reports: None GI: reports: None MEDIA LAW FACULTY MEMBER: reports: None HEENT: reports: None Psych: reports: Depression, Anxiety Musculoskeletal: reports: Chronic back pain MRSA Hx?: Yes Other Past Medical History: Osteomyelitis skull - Past Surgical History Cardiovascular: reports: Valve replacement (Aorta and mitral) Neuro: reports: Other (Brain surgery for benign tumors 1989 and for plate placement in 2018) HEENT: reports: Tonsil/Adenoidectomy - Substance History Use: Uses substance without health or social issues: Tobacco (1/2 ppd smoker) Social History - Living Situation Living arrangement: At home Living Situation: With family (daughter(Carolyn), BRYNN and grandson) Support System: Patient was born in [place] and then at the age of 1 the family relocated to [facility]. The patient's has 4 sisters and she was the middle child. The patient was . She and her spouse had 2 daughters. One daughter resides in [place] and the other resides on [facility]. The patient presently lives with her daughter, Carolyn who is a psych social worker and the patient's DPOA. 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 She was forced to stop working after her heart surgery. She was previously residing in [place] until approximately 3 years ago when she relocated to live with her daughter, Carolyn and her family. The patient no longer drives. Family History - Family History Family History: Mother: , Cancer, Father: , Sister: Cancer Family History Comment/Other: Mother at 68 years of age with lung cancer; sister from throat cancer Medications/Allergies - Medications Home Medications: Ambulatory Orders Medication Instructions Recorded Confirmed Acetaminophen [Acetaminophen Extra 500 mg PO BID PRN MDD NTE 3g/day 03/11/21 03/11/21 Strength] Amoxicillin 4 tab PO ONCE MDD 1 hour before 03/11/21 03/11/21 procedure Buspirone HCl 10 mg PO BID 03/11/21 03/11/21 Cyclobenzaprine [Flexeril] 10 mg PO Q8H PRN 03/11/21 03/11/21 Duloxetine HCl [Cymbalta] 60 mg PO BID 03/11/21 03/11/21 Ferrous Sulfate 325 mg PO DAILY 03/11/21 03/11/21 Fluticasone [Flonase] 2 spray .ROUTE DAILY 03/11/21 03/11/21 Hydrocodone/Acetaminophen 1 tab PO Q4H PRN 03/11/21 03/11/21 [Hydrocodone-Acetamin 5-300 mg] Lisinopril [Zestril] 10 mg PO DAILY 03/11/21 03/11/21 Naloxone HCl [Narcan] 1 spray .ROUTE ONCE PRN MDD repeat 03/11/21 03/11/21 if no response 2-3min Quetiapine Er 200 mg PO QPM 03/11/21 Rosuvastatin Calcium [Crestor] 10 mg PO QPM 03/11/21 03/11/21 Sumatriptan Succinate [Imitrex] 100 mg PO PRN 03/11/21 Warfarin [Coumadin] 03/11/21 Zolpidem Tartrate [Ambien] 10 mg PO QPM PRN 03/11/21 03/11/21 - Allergies Allergies/Adverse Reactions: Allergies Allergy/AdvReac Type Severity Reaction Status Date / Time trazodone AdvReac Itching Verified 03/11/21 20:48 Review of Systems - Constitutional Constitutional: reports: Weight gain. denies: Fever, Poor appetite - Eyes Eyes: denies: Corrective lenses - Ears, Nose & Throat Ears, Nose & Throat: denies: Hearing loss, Hearing aids - Cardiovascular Cardiovascular: reports: Exertional dyspnea, Decr. exercise tolerance. denies: Chest pain, Edema - Respiratory Respiratory: reports: Cough, Sputum production, Wheezing, SOB with exertion - Gastrointestinal Gastrointestinal: reports: Good appetite (grazes throughout the day). denies: Abdominal pain, Constipation, Vomiting - Genitourinary Genitourinary: denies: Dysuria - Musculoskeletal Musculoskeletal: reports: Back pain, Other (Right scapula pain that radiates down right arm). denies: Assistive devices, Transfer issues - Integumentary Integumentary: denies: Rash - Neurological Neurological: reports: Headache (history of migraines typically twice per month), Numbness (RUE, intermittent), Other (Word finding difficulties). denies: Dizziness - Psychiatric Psychiatric: reports: Depression, Anxiety - Endocrine Endocrine: denies: Diabetes type 2 - Hematologic/Lymphatic Hematologic/Lymph: reports: Recurrent infections (UTIs, previously on UTI prophylaxis therapy that was discontinued with acute renal failure 3 years ago per patient and daughter) - All Other Systems All Other Systems: reports: Reviewed and negative Physical Exam - Vital Signs Temperature: 36.6 C Pulse Rate: 90 O2 Saturation: 99 (on RA) Blood Pressure: 118/72 (left arm) - Physical Exam General Appearance: positive: No acute distress, Alert, Other (Overweight, well groomed) Eyes Bilateral: positive: Normal inspection ENT: positive: No signs of dehydration Neck: positive: No JVD, Trachea midline Cardiovascular: positive: Regular rate & rhythm, Other (+mechanical clicks) Respiratory: positive: No respiratory distress, Breath sounds nml. negative: Rales Abdomen: positive: Non-tender, Soft, Nml bowel sounds, Obese Skin: positive: No symptoms Extremities: positive: No pedal edema Neurologic/Psychiatric: positive: Oriented x3, Mood/affect nml. negative: Unintelligible speech Comments/Other: Pulse ox after ambulating up across the first floor and up the stairs was 99%, however the patient felt SOB after exertion and required pause to rest. Palliative Care - POLST Patient has POLST: Yes POLST Status: Full Code Pain: Pain worsening (Right scapula down right arm that is not controlled with tylenol) Dyspnea: Moderate (4-6) Sleep: Sleeps well Constipation: No Performance Status: Patient is ambulatory without assistive device. Becomes dyspneic on exertion. Able to perform IADLs. 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 - Palliative Care Discussion: The patient has faced several obstacles in her life including brain surgery due to benign tumors as well as to artificial valve replacements that led to her no longer being able to work. Everything the patient has faced with her health and circumstance she has been able to overcome. Her daughter sees her as being "bubblegum stuck together." The patient is aware of the potential diagnosis of lung carcinoma given her longstanding history of 2 Bacot abuse and family history of cancer and not only her mother but sister as well. However, the patient wishes to continue to have hope that the biopsy will be benign. The patient is having increasing pain likely due to tumor burden causing nerve impingement. Ultimately, the patient will benefit from treatment for reduction of the symptoms but in the interim would benefit from more effective pain management than acetaminophen. As of patient found hydrocodone/acetaminophen effective in the past we will reinitiate but at a lower dose. Will initiate hydrocodone 5 mg/acetaminophen 325 mg 1 tablet every 4 hours as needed for pain. We reviewed with the patient that given she is on anticoagulant therapy with warfarin it is advisable that she not take any NSAIDs as this can influence her INR reading and increase her risk of bleeding. Both patient and daughter verbalized understanding and will refrain from [id number] NSAID use. Impression and Recommendations - Palliative Care Impression: This is a 55-year-old female with a right upper lobe lung mass in the setting of longstanding tobacco abuse suspicious for lung carcinoma and chronic pain. Her present pain is likely due to tumor burden that is not only causing somatic pain but neuropathic pain as well. She is presently on duloxetine which will offer some benefit for neuropathic pain and would benefit from opioid therapy until her work-up is complete to determine her ultimate diagnosis for the right upper lobe mass and treatment plan. Palliative care will continue to provide support for care coordination, exploration of goals of care, pain and symptom management as well as anticipatory guidance. Recommendations/Counseling Done: 1. Right upper lobe mass. In the setting of longstanding tobacco abuse. Suspicious for lung carcinoma. Patient is scheduled for a biopsy on 03/19/2021 at [facility] for definitive diagnosis and determination of plan of care moving forward. Continue to follow. 2. Tobacco abuse. Discussed smoking cessation at length today. Presently, the patient is smoking 1 pack/day. I discussed reducing her cigarette consumption by 1 cigarette/week and till she is down to 1 cigarette and then discontinue. Advised to mechoopda a date on the calendar as her target date for smoking cessation. Discussed about performing words of affirmation and encouragement to herself on a daily basis to promote smoking cessation and that she can do it as she has been successful for times in the past. Supportive listening provided. 3. Pain of neoplastic origin. Noted to right scapula with neuropathic undertones. Likely due to tumor burden from the right upper lobe mass that have been treated as chronic pain. Expect with treatment reduction in symptoms. Continue wound duloxetine 60 mg twice daily for neuropathic pain component. Discussed with patient and daughter to avoid NSAIDs given the patient is on Coumadin therapy as this will increase her risk of bleeding with understanding verbalized. May utilize acetaminophen 500 mg twice daily if needed for additional pain coverage not to exceed 3000 mg of acetaminophen daily from all sources. Initiate hydrocodone 5 mg/acetaminophen 325 mg take 1 tablet every 4 hours as needed for severe pain. Patient had previously been on hydrocodone 10 mg/acetaminophen 325 mg for approximately 3 years prior to abrupt cessation in December 2020. At the present time, patient would benefit from additional pain management for functional capabilities within the home environment and to improve her overall level of comfort. Patient is aware that when receiving opioid therapy she is not to drive and opioid therapy is to only come from one provider and to be prescribed at 1 start pharmacy patient has elected this to be to [facility] in [place]. If presents dosage of hydrocodone is not sufficient for control of pain patient is aware to contact palliative care to have a discussion regarding adjustment of pain regimen in the interim. 4. Advanced care planning. Patient has POLST in place as full code. She also has completed healthcare power of compliance attorney designated as her daughter Carolyn. Patient expresses fear regarding results of pending lung biopsy but remains optimistic given all she has overcome with her health obstacles and in the past things have typically been benign. We will continue to provide support with rivear igation during this journey. Supportive listening provided. Total time spent 85 minutes with greater than 50% of this spent in counseling and coordination of care with patient and daughter/DPOA Carolyn; review of palliative philosophy; examination of patient; walking pulse oximetry; review of pain and symptom management and anticipatory guidance. Disclaimer: The chart note was formulated using voice recognition technology and unfortunately sound alike errors may occur.
== END 2021-03-11 09:51 | disposition home or self-care (01) ==
LOC: PC 09:50
PROVIDERS: ATTEND Nurse Practitioner Family
DX: Z51.5 Encounter for palliative care (principal); R91.8 Other nonspecific abnormal finding of lung field; G89.29 Other chronic pain; M79.2 Neuralgia and neuritis, unspecified; F17.210 Nicotine dependence, cigarettes, uncomplicated; R05 Cough; G43.909 Migraine, unspecified, not intractable, without status migrainosus; I69.320 Aphasia following cerebral infarction; Z79.899 Other long term (current) drug therapy; Z79.01 Long term (current) use of anticoagulants; Z87.440 Personal history of urinary (tract) infections; Z87.01 Personal history of pneumonia (recurrent); Z95.2 Presence of prosthetic heart valve; Z87.448 Personal history of other diseases of urinary system; Z87.898 Personal history of other specified conditions; Z80.1 Family history of malignant neoplasm of trachea, bronchus and lung
CPT/HCPCS: 99345

== ENCOUNTER 2021-03-22 13:28 | Outpatient (CLI) | payer MEDICARE ==
--- NOTE | 2021-03-11 17:10 | CONSULTATION NOTE ---
Medical/Surgical History - Past Medical History Cardiovascular: reports: Hypertension, Arrhythmia, Valve disorder Respiratory: reports: COPD Neuro: Seizure disorder HEENT: reports: None Psych: reports: Anxiety MRSA Hx?: Yes - Past Surgical History Cardiovascular: reports: Valve replacement Neuro: reports: Other HEENT: reports: Tonsil/Adenoidectomy Medications/Allergies - Medications Home Medications: Ambulatory Orders Medication Instructions Recorded Confirmed Albuterol Sulfate [Proventil Hfa 2 puffs INH PRN PRN 05/11/19 01/02/21 Inhaler] Beclomethasone 40 Mcg [Qvar 40] 1 puffs INH PRN PRN 05/11/19 01/02/21 Duloxetine HCl [Cymbalta] 60 mg PO DAILY 05/11/19 01/02/21 Famotidine [Pepcid] 20 mg PO BID 05/11/19 01/02/21 Hydrocodone/Acetaminophen 1 tab PO PRN PRN 05/11/19 01/02/21 [Hydrocodone-Acetamin 10-325 mg] Levetiracetam [Keppra] 500 mg PO BID 05/11/19 01/02/21 QUEtiapine [SEROquel] 200 mg PO DAILY PM 05/11/19 01/02/21 Warfarin [Coumadin] 10 mg PO 1400 05/11/19 01/02/21 buPROPion HCl [Wellbutrin Sr] 200 mg PO DAILY 05/11/19 01/02/21 busPIRone [Buspar] 2 mg PO DAILY 05/11/19 01/02/21 lisinopriL [Lisinopril] 10 mg PO DAILY 05/11/19 01/02/21 cephALEXin [Keflex] 500 mg PO Q6H #20 cap 09/01/20 01/02/21 cephALEXin [Keflex] 500 mg PO Q6H #28 01/02/21 - Allergies Allergies/Adverse Reactions: Allergies Allergy/AdvReac Type Severity Reaction Status Date / Time No Known Drug Allergies Allergy Verified 01/01/21 23:18
--- NOTE | 2021-03-23 15:42 | Mammography Report ---
BILATERAL DIGITAL SCREENING MAMMOGRAM 3D/2D: 03/22/2021 CLINICAL: Routine screening. Comparison is made to exam dated: 06/16/2015 mammogram - [facility]. The tissue of both breasts is predominantly fatty. No significant masses, calcifications, or other findings are seen in either breast. There has been no significant interval change. IMPRESSION: NEGATIVE There is no mammographic evidence of malignancy. A 1 year screening mammogram is recommended. This exam was interpreted at Station ID: [id number]. NOTE: For mammograms, a report in lay terms will be sent to the patient. Approximately 15% of breast malignancies will not be visualized mammographically. In the management of a palpable breast mass, a negative mammogram must not discourage biopsy of a clinically suspicious lesion. Electronically Signed By: Carson barrios/julio c:03/23/2021 07:16:44 ACR BI-RADS Category 1: Negative 3341F PARENCHYMAL PATTERN: (F) - The breast(s) demonstrate(s) diffuse fatty replacement. BI-RADS CATEGORY: (1) - 1 RECOMMENDATION: (ANNUAL) - Recommend routine annual screening mammography. [id number] 1 year screening LATERALITY: (B)
== END 2021-03-22 13:29 | disposition home or self-care (01) ==
LOC: DI.S 13:28
PROVIDERS: ATTEND Internal Medicine
DX: Z12.31 Encounter for screening mammogram for malignant neoplasm of breast (principal)

== ENCOUNTER 2021-04-03 09:58 | Outpatient (CLI) | payer MEDICARE ==
[2021-04-03 10:39] LABS: INR 6.2 (0.8-1.2)
== END 2021-04-03 09:59 | disposition home or self-care (01) ==
LOC: LAB 09:58
PROVIDERS: ATTEND Internal Medicine
DX: Z79.01 Long term (current) use of anticoagulants (principal); Z95.2 Presence of prosthetic heart valve
CPT/HCPCS: 36415; 85610

== ENCOUNTER 2021-04-07 09:10 | Outpatient (CLI) | payer MEDICARE ==
--- NOTE | 2021-04-07 13:46 | CONSULTATION NOTE ---
Palliative Care Follow Up - Referral Referring Provider: Dr. Javan Carranza Time of Visit: [id number] Referral setting: Home Referral Reason: Small Cell Lung Ca/Pain of neoplasm/Advanced Care Planning - Information Sources Records reviewed: Previous records reviewed History/Review of Systems obtained from: Patient, Family (daughter/DPOA, Carolyn) Exam limitations: No limitations - History of Present Illness Update Brief HPI Update: This is a nael 56-year-old seen and evaluated today in her home for follow-up regarding recent diagnosis of small cell lung cancer over the right upper lobe, pain of neoplastic origin, and advanced care planning with her daughter/DPOA Carolyn present. The patient recently underwent a right lung core biopsy that was positive for small cell carcinoma. She is status post initial oncologic evaluation on 04/03/2021 and is to have a port placed as well as a PET/CT and brain MRI. Based on these findings we will then proceed with chemotherapy. Oncology on 04/03 initiated her on MS Contin 7.5 mg twice daily titrated up to 15 mg twice daily. Patient has been tolerating this well. She has had a reduction in her hydrocodone/acetaminophen use. She has been taking approximately 10 mg of hydrocodone per day since adjusts and of MS Contin to 15 mg twice daily. She denies any increased fatigue. She is also not noting any brain fog. She reports that sharp pains to her lower back have improved. She does have intermittent right arm numbness that comes and goes. She has not dropped any items. The patient has a longstanding history of tobacco abuse. She is presently still a smoker and has previously been up to 1 pack/day. She has been smoking since approximately the age of 13. In the past she has stopped cold turkey approximately 4 times but ultimately returned to cigarette use. Since last evaluation with this SEWING MACHINE ADJUSTER the patient has taken to heart to cutting back by 1 cigarette/day. She is presently down to 13 cigarettes/day. She is tolerating this well. She does report of chronic cough that resulted in suspicion for lung carcinoma after identification of a right upper lobe mass was identified on imaging. Patient does have a history of insomnia and prefers to only have intermittent use of Ambien. She has now switched to utilizing Benadryl 50 mg in the evening and she reports to sleeping well and not having sedation during the day. She is presently on Coumadin therapy due to her history of mechanical aortic and mitral valves. INR goal is 2.5-3.5. She recently had an elevated INR level. This is also in note of being bridged with Lovenox for her lung biopsy. The patient has also completely stopped taking ibuprofen [id number] after discussion with interaction with Coumadin. Patient denies any epi taxis, rectal bleeding or hematuria. The patient is well-groomed and articulate seen in the living room with no evidence of acute distress. Cardiology: Dr. Stokes Past Medical History: Patient has a past medical history of congestive heart failure, hypertension, arrhythmia, aorta and mitral valve replacement with mechanical valves on Coumadin therapy, seizure disorder no longer on Keppra without seizure activity for years, asthma, sleep apnea, CVA, depression, anxiety, chronic back pain, MR SA, osteomyelitis of the skull, brain surgery for benign tumors in 1989 and for plate replacement in 2017, tonsil and adenoidectomy, tobacco use. Social History - Living Situation Living arrangement: At home Living Situation: With family (daughter(Carolyn), BRYNN and grandson) Support System: Patient was born in [place] and then at the age of 1 the family relocated to [facility]. The patient was . She and her spouse had 2 daughters. One daughter resides in [place] and the other resides on [facility]. The patient presently lives with her daughter, Carolyn who is a social services director and the patient's OA with contact number [phone]. She was previously residing in [place] until approximately 3 years ago when she relocated to live with her daughter, Carolyn and her family. The patient no longer drives. Medications/Allergies - Medications Home Medications: Ambulatory Orders Medication Instructions Recorded Confirmed Buspirone HCl 10 mg PO BID 03/11/21 03/11/21 Cyclobenzaprine [Flexeril] 10 mg PO Q8H PRN 03/11/21 03/11/21 Duloxetine HCl [Cymbalta] 60 mg PO BID 03/11/21 03/11/21 Ferrous Sulfate 325 mg PO DAILY 03/11/21 03/11/21 Lisinopril [Zestril] 10 mg PO DAILY 03/11/21 03/11/21 Naloxone HCl [Narcan] 1 spray .ROUTE ONCE PRN MDD repeat 03/11/21 03/11/21 if no response 2-3min Quetiapine Er 200 mg PO QPM 03/11/21 Rosuvastatin Calcium [Crestor] 10 mg PO QPM 03/11/21 03/11/21 Sumatriptan Succinate [Imitrex] 100 mg PO PRN 03/11/21 Warfarin [Coumadin] 5 mg PO DAILY 03/11/21 Zolpidem Tartrate [Ambien] 10 mg PO QPM PRN 03/11/21 03/11/21 HYDROcodone/ACET 10/325 [Mchenry 10 1 tab PO Q4H PRN 04/07/21 04/07/21 mg/325 mg] Morphine Sulfate [Ms Contin] 15 mg PO BID 04/07/21 04/07/21 Senna [Senokot] 8.6 mg PO DAILY PRN 04/07/21 04/07/21 bisacodyL [Dulcolax] 5 mg PO DAILY PRN 04/07/21 04/07/21 polyethylene glycoL 3350 [Miralax] 17 g PO DAILY PRN 04/07/21 04/07/21 - Allergies Allergies/Adverse Reactions: Allergies Allergy/AdvReac Type Severity Reaction Status Date / Time trazodone AdvReac Itching Verified 03/11/21 20:48 Review of Systems - Constitutional Constitutional: reports: Weight gain. denies: Fatigue, Fever, Poor appetite - Eyes Eyes: denies: Irritation - Ears, Nose & Throat Ears, Nose & Throat: denies: Dentures - Cardiovascular Cardiovascular: reports: Decr. exercise tolerance. denies: Chest pain, Edema - Respiratory Respiratory: reports: Cough, SOB with exertion - Gastrointestinal Gastrointestinal: reports: Constipation (Recent episode of constipation resolved with bisacodyl administration), Other (Appetite is stable). denies: Vomiting - Genitourinary Genitourinary: denies: Dysuria - Musculoskeletal Musculoskeletal: reports: Back pain (see HPI, improved), Other (Right scapula pain that radiates down right arm). denies: Assistive devices, Transfer issues - Integumentary Integumentary: denies: Rash - Neurological Neurological: reports: Headache (history of migraines typically twice per month), Numbness (RUE-- see HPI), Other (Word finding difficulties, intermittent) - Psychiatric Psychiatric: reports: Depression, Anxiety - Hematologic/Lymphatic Hematologic/Lymph: reports: Recurrent infections (UTIs, previously on UTI p rophylaxis therapy that was discontinued with acute renal failure 3 years ago per patient and daughter) - All Other Systems All Other Systems: reports: Reviewed and negative Physical Exam - Vital Signs Temperature: 36.5 C Pulse Rate: 89 O2 Saturation: 97 (on RA) Blood Pressure: 110/62 (right arm) - Physical Exam General Appearance: positive: No acute distress, Alert, Other (Overweight, well groomed) Eyes Bilateral: positive: Normal inspection ENT: positive: No signs of dehydration Neck: positive: No JVD, Trachea midline Cardiovascular: positive: Regular rate & rhythm, Other (+Audible prosthetic valve clicks) Respiratory: positive: No respiratory distress, Breath sounds nml. negative: Rales Abdomen: positive: Non-tender, Soft, Nml bowel sounds, Obese Skin: positive: No symptoms Extremities: positive: No pedal edema Neurologic/Psychiatric: positive: Oriented x3, Mood/affect nml. negative: Unintelligible speech Palliative Care - POLST Patient has POLST: Yes POLST Status: Full Code Pain: Pain improved (Improved with initiation of MS Contin 15mg BID in addition of hydrocodone 10mg/acetaminophen 325mg as needed for breakthrough pain to right scapula.) Dyspnea: Moderate (4-6) Sleep: Sleeps well (see HPI) Constipation: Intermittent constipation - Palliative Care Discussion: The patient reports to having felt overwhelmed of having confirmation of cell lung cancer. She is looking towards the future and having obtainment of imaging for appropriate staging. She is optimistic regarding management of her symp toms with chemotherapy after meeting with oncology for initial consultation. This diagnosis had been weighing on her as she has faced many obstacles in her life including brain surgery due to benign tumors as well as artificial valve replacements. The patient is now finding comfort and peace and knowing that both her daughters will support her decision for what ever she decides as she goes on this cancer journey. She sees each day as a blessing. Her mood has improved because her pain is under better control with initiation of MS Contin 15 mg twice daily in addition to hydrocodone 10 mg/acetaminophen 325 mg as needed for breakthrough pain. The patient recognizes that she has the potential for having a more serious diagnosis based on staging of her small cell lung cancer however, wishes to remain optimistic. She is quite pleased with her progress that she is made with reduction in her tobacco use as she recognizes the importance of smoking cessation for her treatment moving forward. Impression and Recommendations - Palliative Care Impression: This is a 56-year-old female with small cell lung cancer of unknown stage in the setting of longstanding tobacco abuse and pain of neoplastic origin. Her pain is improved with introduction of MS Contin 15 mg daily. She has pending scans for evaluation of staging work-up and then moving forward with chemotherapy. Palliative care will continue to provide support for care coordination, exploration of goals of care, pain and symptom management as well as anticipator y guidance. Recommendations/Counseling Done: 1. Pain of neoplastic origin. Noted to right scapula with neuropathic undertones. Likely related to turmeric tumor burden from small cell lung cancer. Discussion regarding moving forward palliative care will manage pain and dose adjustments related to pain management with understanding verbalized. Continue MS Contin 15 mg twice daily. Set expectations moving forward that may need 3 times daily dosing based on the patient's need and administration of breakthrough pain medication. Patient aware to continue to monitor and marked down her utilization of hydrocodone/acetaminophen for breakthrough pain and if requiring 2-3 doses per day would benefit from dose adjustment of MS Contin and to make palliative care aware. New prescription provided for hydrocodone 10 mg/acetaminophen 325 mg to take 1 tablet every 4 hours as needed for pain. Rx sent to [facility] per patient's request. Reviewed to contact Palliative Care 5 business days before opioids run out for prescribing. Has Narcan in the home and use was reviewed. Advised that she may not take NSAIDs [id number] due to her taking Coumadin. She may also utilize acetaminophen 500 mg twice daily if needed for additional pain coverage not to exceed 3000 mg daily of acetaminophen from all sources. Continue to monitor and adjust pain regimen based on the patient's response and functional level. 2. Constipation. Reviewed with initiation of long-acting opioids increased risk of constipation. Reviewed bowel titration with utilization of MiraLAX and senna moving forward when the patient runs out of Dulcolax within the home.Advised goal is to have a daily, soft bowel movements and again reviewed dosage titrations of MiraLAX and senna moving forward. 3. Tobacco abuse. Patient recognizes the importance of smoking cessation. She has been reducing her cigarette consumption by 1 cigarette/week to eventually discontinue. She is now down to 13 cigarettes/day. Positive reinforcement provided. 4. Small cell lung cancer, unknown stage. Patient has PET/CT and brain MRI pending. She is going to have a Port-A-Cath placed for ease of access for chemotherapy as well as lab draws. Encouraged continued routine exercise as she is able as well as a well-balanced diet to optimize therapy moving forward.Follow-up with oncology as scheduled. 5. Advanced care planning. Patient has POLST in place as full code. Patient feels relief and having support from both of her daughters that any decisions regarding treatment moving forward will be supported by her daughters moving forward and this gives her ease of mind. Continue to encourage the patient to ask questions and palliative care will continue to assist in interpretation of information and provide a safe space for discussion regarding feelings and options moving forward. Has DPOA paperwork in place. Continue to explore goals of care moving forward. Total time spent 55 minutes with greater than 50% of the spent in counseling and coordination of care with the patient and daughter/DPOA Carolyn; Examination of patient; review of diagnosis of small cell lung cancer; review of pain and symptom management and anticipatory guidance. Disclaimer: The chart note was formulated using voice recognition technology and unfortunately sound alike errors may occur.
== END 2021-04-07 09:11 | disposition home or self-care (01) ==
LOC: PC 09:10
PROVIDERS: ATTEND Nurse Practitioner Family
DX: Z51.5 Encounter for palliative care (principal); G89.3 Neoplasm related pain (acute) (chronic); C34.11 Malignant neoplasm of upper lobe, right bronchus or lung; K59.00 Constipation, unspecified; F17.200 Nicotine dependence, unspecified, uncomplicated; Z79.891 Long term (current) use of opiate analgesic
CPT/HCPCS: 99349

== ENCOUNTER 2021-04-08 16:40 | Outpatient (CLI) | payer MEDICARE ==
[2021-04-08 20:35] LABS: INR 4.1 (0.8-1.2); PT - PROTHROMBIN TIME 45.1 secs (9.9-12.6)
== END 2021-04-08 16:41 | disposition home or self-care (01) ==
LOC: LAB.S 16:40
PROVIDERS: ATTEND Internal Medicine
DX: Z79.01 Long term (current) use of anticoagulants (principal); Z95.2 Presence of prosthetic heart valve
CPT/HCPCS: 36415; 85610

== ENCOUNTER 2021-04-28 11:45 | Outpatient (CLI) | payer MEDICARE ==
--- NOTE | 2021-04-28 16:16 | CONSULTATION NOTE ---
Palliative Care Follow Up - Referral Referring Provider: Dr. Javan Carranza Time of Visit: [id number] Referral setting: Home Referral Reason: Small Cell Lung Cancer/Pain of Neoplasm/Constipation - Information Sources Records reviewed: Previous records reviewed History/Review of Systems obtained from: Patient, Family (DPOA/daughter, Carolyn) Exam limitations: No limitations - History of Present Illness Update Brief HPI Update: This is a nael 56-year-old female who was seen and evaluated today in her home for follow-up regarding diagnosis of small cell lung cancer in the right upper lobe, pain of neoplastic origin and advance care planning with her daughter, TARI Leon present. The patient had a CT of the chest performed 02/04/2021 that indicated a 2 cm spiculated Anterior right apical lung mass that was suspicious for carcinoma. She underwent a biopsy on 03/19 that indicated small cell carcinoma. She then underwent a PET/CT on 04/17 that did not distinguish any evidence of metastases. On 04/17 she underwent a brain MRI with no evidence of metastases. The patient and her daughter met with oncology on 04/24 to receive news that she can do for defer her port placement at this time and she is being referred for thoracic surgery and radiation oncology as she has no evidence of metastases. This has presented the patient with new emotions that she wished to untangle today separately and privately with this CUSTOMER COMPLAINT CLERK. Please see palliative care discussion for further details. The patient has been having chronic right shoulder pain in the area that the 2 cm lung mass was identified identified with pain that will radiate down her arm. She is presently on MS Contin 15 mg 2 times daily. She has been utilizing her hydrocodone/acetaminophen 10mg/325mg Approximately 3-5 times per day. In the last several days the patient reports that she has had some escalation in her pain specifically during the daytime hours. The pain will escalate and will be intense. She typically receives relief after taking her hydrocodone. The relief typically occurs and approximately 30 minutes. The last 2 mornings she has been waking up in intense pain. Therefore, would benefit from dose adjustment of her MS Contin today. Patient is well-groomed and articulate seen in the living room with no evidence of distress. Past Medical History: Patient was born in [place] and then at the age of 1 her family recode relocated to [facility]. Patient was . She and her spouse have 2 daughters. One daughter resides in [place] and the other resides on [facility]. The patient lives with her daughter, Carolyn who is a social science research assistant and the patient's DPOA with contact number [phone]. The patient came to live with her daughter and her family approximately 3 years ago. She no longer drives. Social History - Living Situation Living arrangement: At home Living Situation: With family (daughter(Carolyn), BRYNN and grandson) Medications/Allergies - Medications Home Medications: Ambulatory Orders Medication Instructions Recorded Confirmed Buspirone HCl 10 mg PO BID 03/11/21 04/24/21 Cyclobenzaprine [Flexeril] 10 mg PO Q8H PRN 03/11/21 04/24/21 Duloxetine HCl [Cymbalta] 60 mg PO BID 03/11/21 04/24/21 Ferrous Sulfate 325 mg PO DAILY 03/11/21 04/24/21 Lisinopril [Zestril] 10 mg PO DAILY 03/11/21 04/24/21 Naloxone HCl [Narcan] 1 spray .ROUTE ONCE PRN MDD repeat 03/11/21 04/24/21 if no response 2-3min Quetiapine Er 200 mg PO QPM 03/11/21 04/24/21 Rosuvastatin Calcium [Crestor] 10 mg PO QPM 03/11/21 04/24/21 Sumatriptan Succinate [Imitrex] 100 mg PO DAILY 03/11/21 04/24/21 Warfarin [Coumadin] 5 mg PO DAILY 03/11/21 04/24/21 Zolpidem Tartrate [Ambien] 10 mg PO QPM PRN 03/11/21 04/24/21 HYDROcodone/ACET 10/325 [[place] 10 1 tab PO Q4H PRN 04/07/21 04/24/21 mg/325 mg] Morphine Sulfate [Ms Contin] 15 mg PO TID 04/07/21 04/24/21 Quetiapine Fumarate [Seroquel] 20 mg PO DAILY 04/22/21 04/24/21 Senna [Senokot] 8.6 mg PO DAILY 04/28/21 04/28/21 polyethylene glycoL 3350 [Miralax] 17 g PO DAILY 04/28/21 04/28/21 - Allergies Allergies/Adverse Reactions: Allergies Allergy/AdvReac Type Severity Reaction Status Date / Time trazodone AdvReac Itching Verified 03/11/21 20:48 Review of Systems - Constitutional Constitutional: reports: Weight gain. denies: Fever - Ears, Nose & Throat Ears, Nose & Throat: denies: Hearing aids - Cardiovascular Cardiovascular: reports: Decr. exercise tolerance. denies: Chest pain, Edema - Respiratory Respiratory: reports: Cough, SOB with exertion - Gastrointestinal Gastrointestinal: reports: Other (Appetite is slightly decreased with muching throughout the day). denies: Abdominal pain, Constipation (stable wth bowel movement daily but reports firm and would benefit from Miralax addition to bowel regimen), Vomiting - Genitourinary Genitourinary: denies: Dysuria - Musculoskeletal Musculoskeletal: reports: Other (Right scapula pain that radiates down right arm). denies: Assistive devices, Transfer issues - Neurological Neurological: reports: Numbness (RUE), Other (Word finding difficulties, intermittent). denies: Headache (history of migraines typically twice per month), Dizziness - Psychiatric Psychiatric: reports: Depression, Anxiety - Hematologic/Lymphatic Hematologic/Lymph: reports: Recurrent infections (UTIs, previously on UTI prophylaxis therapy that was discontinued with acute renal failure 3 years ago per patient and daughter) - All Other Systems All Other Systems: reports: Reviewed and negative Physical Exam - Vital Signs Temperature: 36.7 C Pulse Rate: 92 O2 Saturation: 96 (on RA) Blood Pressure: 100/52 (left arm) - Physical Exam General Appearance: positive: No acute distress, Alert, Other (Overweight, well groomed) Eyes Bilateral: positive: Normal inspection ENT: positive: No signs of dehydration Neck: positive: No JVD, Trachea midline Cardiovascular: positive: Regular rate & rhythm, Other (+Audible prosthetic valve clicks) Respiratory: positive: No respiratory distress, Breath sounds nml Abdomen: positive: Non-tender, Soft, Nml bowel sounds, Obese Skin: positive: No symptoms Extremities: positive: No pedal edema Neurologic/Psychiatric: positive: Oriented x3, Mood/affect nml, Other (Became tearful when discussing her underlying fears and next steps in her journey, see Palliative Care Discussion for further details.). negative: Unintelligible speech Palliative Care - POLST Patient has POLST: No Pain: Pain worsening (Last several days with increased pain that is responding to hydrocodone/acetaminophen with pain waking from sleep. Benefit from dose increase of MS Contin) Nausea: None Anorexia: Mild (1-3) Sleep: Variable sleep pattern Constipation: Managed - Palliative Care Discussion: Patient was reasonable today expressing that she was prepared for dire news from the oncologist and now finding out that the cancer has not mestastasized has shifted her mindset and she is reporting underlying anger as she finds this is just 1 more surgery that she has to go through and is anxious regarding the outcome. Normalized her feelings regarding fear as she has successfully overcome two prior major surgeries and she is fearful regarding the outcomes as she has had success in the past and is not sure that this will continue in the future. Normalized her feelings regarding anger, as every other biopsy she has had previously had been benign. She was not expecting a diagnosis of carcinoma. Now with having to shift her mindset, with potential treatment options, including surgery, she feels that She wrongfully put her family through worry. Again, normalized her feelings of loss and grief regarding things that are not fully in her control. She is very much desiring seeing imaging that indicates the 2 centimeter mass in her chest. Unfortunately, this CUSTOMER COMPLAINT CLERK does not have access to this but did encourage both the patient and her daughter to request the surgeon to review this with her. The patient notes that she is a visual individual and this would help her process her decision making moving forward weighing pros versus cons. Also encouraged her to make a list. Moving forward to assist the patient it would be beneficial to help her have things in place to visualize such as a list Of questions for providers as well as imaging and written instructions for her to reflect upon and review at a later time. Impression and Recommendations - Palliative Care Impression: This is a 56-year-old female with stage I small cell lung cancer in the setting of long standing tobacco abuse and pain of neoplastic origin with underlying constipation. He is having some increase in pain and would benefit from increasing her MS Contin to 15 mg 3 times daily. Normalized her feelings of anger and grief regarding her diagnosis and provided supportive listening. With some underlying constipation she would benefit from resumption of MiraLAX in addition to her senna. Palliative care will continue to provide support for care coordination, exploration of goals of care, pain and symptom management as well as anticipatory guidance. Recommendations/Counseling Done: 1. Pain of neoplastic origin. Reported to right scapula with neuropathic undertones. Likely related to tumor burden from small cell lung cancer. Palliative care to manage pain medication. Given the patient is having increased reports of pain and increase usage of hydrocodone/acetaminophen to increase MS Contin to 15 mg 3 times daily (8 AM2 PM8 PM (with new Rx sent to [facility] pharmacy in [place]. Patient to continue hydrocodone 10 mg/acetaminophen 325 mg to take 1 tablet every 4 hours as needed for pain and to continue to record for dose adjustment. Has Narcan in the home. Set expectations with patient that we will continue to adjust for her comfort and to maintain her functional ability. 2. Constipation. Reiterated long acting opioids increase in the risk of constipation. Emphasized starting MiraLAX 1 cap daily. May titrate MiraLAX up to 1 cap twice a day if needed. Continue senna 8.6 mg in the evening. Goal remains to have a daily, soft bowel movement. Titration of MiraLAX and senna reviewed. 3. Small cell lung cancer, stage I. No evidence of metastases. Patient is to be evaluated by thoracic surgery on 05/19 and radiation oncology for follow-up with her oncologist. Requested that patient and daughter request that surgeon review imaging to assist the patient in her processing of her underlying diagnosis. To continue to be followed by oncology. 4. Advanced care planning. Patient has POLST in place as full code. Supportive and empathetic listening provided today with support as the patient is going through various of emotions related to grief and loss and anxiety regarding her potential decision of moving forward with surgery. Normalized her feelings regarding surgery and adverse outcomes. Encouraged her to make a pro vs con list. Advised her to continue to have an open dialogue and a safe space with her daughters. Her daughters have been very supportive and her decisions and have advised the patient that they would support any decision that she has regarding treatment and management. Reassured the patient that palliative care would continue to follow her moving forward and at a point if hospice for a ppropriate will make a transition to hospice this provided reassurance to the patient as she has an underlying fear. Offered support of palliative care bone drier operator at the present time, the patient declines. Plan is to follow-up with the patient and her daughter in person after oncology, radiation oncology, and surgery appointments to help the patient and her daughter navigate gait through the decision process. Total time spent 60 minutes with greater than 50% of the spent in counseling coordination of care with the patient and then with the daughter/DPOA Carolyn; private discussion with the patient teasing out fears, goals of care and normalization of feelings; Review of tools to assist the patient with achieving her decision making process moving forward; review of pain and symptom managem ent and anticipatory guidance. Disclaimer: The chart note was formulated using voice recognition technology and unfortunately sound alike errors may occur.
== END 2021-04-28 11:46 | disposition home or self-care (01) ==
LOC: PC 11:45
PROVIDERS: ATTEND Nurse Practitioner Family
DX: Z51.5 Encounter for palliative care (principal); C34.11 Malignant neoplasm of upper lobe, right bronchus or lung; G89.3 Neoplasm related pain (acute) (chronic); M25.511 Pain in right shoulder; K59.00 Constipation, unspecified
CPT/HCPCS: 99350

== ENCOUNTER 2021-05-12 13:26 | Outpatient (CLI) | payer MEDICARE | END 2021-05-12 13:27 | disposition home or self-care (01) | LOC: RT 13:26 | PROVIDERS: ATTEND Internal Medicine Hematology & Oncology | DX: Z01.811 Encounter for preprocedural respiratory examination (principal) | CPT/HCPCS: 36415; 36416; 85610; 94060 ==

== ENCOUNTER 2021-05-12 14:31 | Outpatient (CLI) | payer MEDICARE ==
[2021-05-12 15:55] LABS: INR 3.4 (0.8-1.2); PT - PROTHROMBIN TIME 37.4 secs (9.9-12.6)
== END 2021-05-12 14:32 | disposition home or self-care (01) ==
LOC: LAB 14:31
PROVIDERS: ATTEND Internal Medicine
DX: Z79.01 Long term (current) use of anticoagulants (principal); Z95.2 Presence of prosthetic heart valve
CPT/HCPCS: 36415; 36416; 85610

== ENCOUNTER 2021-05-26 09:40 | Outpatient (CLI) | payer MEDICARE ==
--- NOTE | 2021-05-26 18:00 | CONSULTATION NOTE ---
Palliative Care Follow Up - Referral Referring Provider: Dr. Javan Carranza Time of Visit: [id number] Referral setting: Home Referral Reason: Small Cell Lung Cancer/Pain of Neoplasm/Constipation - Information Sources Records reviewed: Previous records reviewed History/Review of Systems obtained from: Patient, Family (daughter, Carolyn) Exam limitations: No limitations - History of Present Illness Update Brief HPI Update: This is a nael 56-year-old female who was seen and evaluated today in her home for follow-up regarding small cell lung cancer in the right upper lobe, pain of neoplastic origin, constipation and neuropathy with her daughter, TARI Leon present. Provider wore N95 mask. The patient had a CT of the chest performed 02/04/2021 that indicated a 2 cm spiculated Anterior right apical lung mass that was suspicious for carcinoma. She underwent a biopsy on 03/19 that indicated small cell carcinoma. She then underwent a PET/CT on 04/17 that did not distinguish any evidence of metastases. On 04/17 she underwent a brain MRI with no evidence of metastases. Patient is s/p consultation with radiation oncology and given her options she does not wish to proceed with any interventions but focus on quality of life. The patient has been having chronic right shoulder pain in the area that the 2 cm lung mass was identified identified with pain that will radiate down her arm. She is presently on MS Contin 15 mg in the morning and afternoon with 30mg in the evening since 05/02/2021. Since increase of her evening MS Contin the patient reports to sleeping better overnight. She is no longer waking up in the middle of the night due to pain. She is typically sleeping until 6 in the morning. She has been utilizing her hydrocodone/acetaminophen 10mg/325mg Approximately 4 times per day. She is also asked experiencing increased numbness to her right upper arm. This typically occurs in the morning. She relates that the numbness will be all the way down to her fingers. She is states that it feels like "my arm is asleep." She denies any pins or needles feeling. She has not dropped any large objects. Of note, she is right-handed. Presently on duloxetine 60 mg twice daily. She has experienced some recent constipation but with her present regimen has leveled out and is having daily, soft bowel movements. She is presently taking senna 4 tablets twice daily as well as milk of magnesia 30 mL daily. This has been to positive effect. She does report a reduction in her overall oral intake and relay some early satiety. Patient is well-groomed and articulate seen in the living room with no evidence of distress. Cardiology: Dr. Stokes Past Medical History: Patient has a past medical history of congestive heart failure, hypertension, arrhythmia, aorta and mitral valve replacement with mechanical valves on Coumadin therapy, seizure disorder no longer on Keppra without seizure activity for years, asthma, sleep apnea, CVA, depression, anxiety, chronic back pain, MRSA, osteomyelitis of the skull, brain surgery for benign tumors in 1989 and for plate replacement in 2018, tonsil and adenoidectomy, tobacco use. Social History - Living Situation Living arrangement: At home Living Situation: With family (daughter(Carolyn), BRYNN and grandson) Support System: Patient was born in [place] and then at the age of 1 her family relocated to [facility]. Patient was . She and her spouse have 2 daughters. One daughter resides in [place] and the other resides on [facility]. The patient lives with her daughter, Carolyn who is a social scientist and the patient's [facility] with contact number [phone]. The patient came to live with her daughter and her family approximately 3 years ago. She no longer drives. Dog, Dinesh in the home. Family decorated the house for [employer]. She and her daughter, Carolyn, are looking into planning a trip to [place]--the last went for the patient's 48th birthday. Medications/Allergies - Medications Home Medications: Ambulatory Orders Medication Instructions Recorded Confirmed Buspirone HCl 10 mg PO BID 03/11/21 04/24/21 Cyclobenzaprine [Flexeril] 10 mg PO Q8H PRN 03/11/21 04/24/21 Duloxetine HCl [Cymbalta] 60 mg PO BID 03/11/21 04/24/21 Ferrous Sulfate 325 mg PO DAILY 03/11/21 04/24/21 Lisinopril [Zestril] 10 mg PO DAILY 03/11/21 04/24/21 Naloxone HCl [Narcan] 1 spray .ROUTE ONCE PRN MDD repeat 03/11/21 04/24/21 if no response 2-3min Quetiapine Er 200 mg PO QPM 03/11/21 04/24/21 Sumatriptan Succinate [Imitrex] 100 mg PO DAILY 03/11/21 04/24/21 Warfarin [Coumadin] 5 mg PO DAILY 03/11/21 04/24/21 Zolpidem Tartrate [Ambien] 10 mg PO QPM PRN 03/11/21 04/24/21 HYDROcodone/ACET 10/325 [[place] 10 1 tab PO Q4H PRN 04/07/21 04/24/21 mg/325 mg] Morphine Sulfate [Ms Contin] 15 mg PO .AT 1400 04/07/21 04/24/21 Quetiapine Fumarate [Seroquel] 20 mg PO DAILY 04/22/21 04/24/21 Senna [Senokot] 4 tab PO BID 04/28/21 05/11/21 Docusate Sodium 100Mg Capsule 1 cap PO DAILY PRN 05/11/21 05/11/21 [Colace 100Mg Capsule] Magnesium Hydroxide [Milk of PO DAILY 05/11/21 Magnesia] Morphine Sulfate [Ms Contin] 30 mg PO BID 05/11/21 05/11/21 - Allergies Allergies/Adverse Reactions: Allergies Allergy/AdvReac Type Severity Reaction Status Date / Time trazodone AdvReac Itching Verified 03/11/21 20:48 Review of Systems - Constitutional Constitutional: reports: Weight gain. denies: Fever - Eyes Eyes: denies: Irritation - Ears, Nose & Throat Ears, Nose & Throat: denies: Dry mouth - Cardiovascular Cardiovascular: denies: Chest pain, Edema - Respiratory Respiratory: reports: Cough, SOB with exertion - Gastrointestinal Gastrointestinal: reports: Early satiety, Other (Decreased appetite). denies: Abdominal pain, Constipation (see HPI), Nausea, Vomiting - Genitourinary Genitourinary: denies: Dysuria - Musculoskeletal Musculoskeletal: reports: Other (Right scapula pain that radiates down right arm). denies: Assistive devices, Transfer issues - Neurological Neurological: reports: Numbness (RUE), Other (Word finding difficulties, intermittent). denies: Headache (history of migraines typically twice per month) - Psychiatric Psychiatric: reports: Depression, Anxiety - Hematologic/Lymphatic Hematologic/Lymph: reports: Recurrent infections (UTIs, previously on UTI prophylaxis therapy that was discontinued with acute renal failure 3 years ago per patient and daughter) - All Other Systems All Other Systems: reports: Reviewed and negative Physical Exam - Vital Signs Temperature: 36.6 C Pulse Rate: 93 O2 Saturation: 95 (on RA) Blood Pressure: 110/58 (left wrist) - Physical Exam General Appearance: positive: No acute distress, Alert, Other (Overweight, well groomed) Eyes Bilateral: positive: Normal inspection ENT: positive: No signs of dehydration Neck: positive: No JVD, Trachea midline Cardiovascular: positive: Regular rate & rhythm, Other (+Audible prosthetic valve clicks) Respiratory: positive: No respiratory distress, Breath sounds nml Abdomen: positive: Non-tender, Soft, Nml bowel sounds, Obese Skin: positive: No symptoms Extremities: positive: No pedal edema Neurologic/Psychiatric: positive: Oriented x3, Mood/affect nml, Weakness (RUE strength 4-/5, LLE strength 5/5) Palliative Care - POLST Patient has POLST: Yes POLST Status: Full Code Pain: Pain improved (with MS contin and hydrocodone/acetaminophen presently being utilized) Nausea: None Anorexia: Mild (1-3) Feelings of wellbeing/Perceived Quality of Life: Good Sleep: Sleep improved Constipation: Yes, Opoid induced, Managed Performance Status: PPS 70-80% - Palliative Care Discussion: Patient has recently met narrowing with her medical oncologist with radiation oncology and has elected not to proceed with interventions and wishes to focus on quality of life and symptom management and optimize her time with her family. She has experienced 2 major surgeries in her present lifetime and that was enough burden to have undergone and she does not wish to proceed with interventions that would lead to potential complications after weighing benefits versus burdens. She reports after reviewing this decision with both of her daughters that a weight had been lifted recognizing that she is found peace and is excepting of her decision making. The patient continues to have pain to her right scapula with neuropathic symptoms to her right upper extremity. Would benefit from dose adjustment of MS Contin to optimize her pain management and will increase to 30 mg in the morning and continue 50 mg in the afternoon and 30 mg in the evening of MS Contin. For her neuropathic pain will initiate gabapentin at a low dose and reviewed purpose, dose and side effects. Patient is amenable to trialing gabapentin. Recognizes that some of her underlying neuropathic symptoms are due to location of her tumor burden but wishes to optimize her quality of life and symptom management. Introduced the role of hospice services today with both the patient and daughter as well as philosophy. At the present time, the patient elects to continue with palliative care services and when perceives changes occurring would then like to proceed with transitioning to hospice services with support. Impression and Recommendations - Palliative Care Impression: This is a nael 56-year-old female with stage I small cell lung cancer in the setting of longstanding tobacco abuse, pain of neoplastic origin, constipation and neuropathy to right upper extremity. She would benefit from dose increase of her MS Contin as noted below. She would also benefit from introduction of low- dose gabapentin in the evening to assist with neuropathy first thing in the morning. Patient has elected not to proceed with interventions related to her small cell lung cancer after weighing benefits versus burdens and is electing to focus on quality of life and comfort measures. Palliative care to continue provide support for care coordination, teasing out goals of care, setting expectations, pain and symptom management as well as anticipatory guidance with transition to hospice when medically appropriate. Recommendations/Counseling Done: 1. .Pain of neoplastic origin. Reported to right scapula likely related to tumor burden from small cell lung cancer. Palliative care to manage pain medication. Would benefit from further dose titration of MS Contin and will increase to 30 mg in the morning continue 15 mg in the afternoon and 30 mg in the evening. New Rx for 30 mg tablets sent to [facility] in [place]. Continue hydrocodone 10 mg/acetaminophen 325 mg take 1 tablet every 4 hours as needed for pain and to continue to report administration for dose adjustment of MS Contin moving forward. Has Narcan in the home. Continue to monitor and adjust pain medications as needed to optimize comfort and maintain function. 2.Constipation. Previous history. Presently well controlled. Opioid medication and sedentary lifestyle contributing. Consider continue senna 4 tablets in the morning and 4 tablets in the evening. Reviewed dose titration of senna based on defecation and may titrate up to 4 tablets 3 times daily. Has had positive benefit with milk of magnesia and may continue 30 mL daily. Does have Colace available in the home. Goal remains to have a daily, soft bowel movement. 3. Neuropathy right upper extremity. Mild weakness noted to right upper extremity. Patient [id number]. Tumor burden contributing due to small cell lung cancer. Initiate gabapentin 100 mg capsule take 1 capsule in the evening x3 nights, then increase to 2 capsules in the evening x3 nights, then increase to 3 capsules in the evening and continue. Reviewed purpose, dose, and side effects of gabapentin with understanding verbalized in agreement to proce ed. May consider dose reduction of duloxetine in the future if positive effect for gabapentin and duloxetine was utilized for pain management. 4. Small cell lung cancer, stage I. No evidence of metastases. Status post medical oncology and radiation oncology. Patient has elected not to proceed with interventions after weighing benefits versus burdens. She wishes to focus on quality of life and symptom management with comfort. Palliative care to continue to follow and support until disease progression is demonstrated and then transition to hospice services. 5. Advanced care planning. Patient has POLST in place as full code.As continue to build rapport we will look at readdressing POLST in the future based on patient's goals and alignments for her medical care. Presently, she is requesting to focus on comfort measures and given diagnosis of small cell lung cancer recommendation made to discontinue Crestor today due to time to benefit and patient is agreeable. At the present time, would continue Coumadin with management due to avoid an adverse event such as a thrombic emboli due to her history of aortic valve replacement. Gently introduced the role of hospice and patient is open to this transition in the future. Supportive and empathetic listening provided today. We will continue to weigh benefits versus burdens moving forward with a goal to focus on quality of life and symptom management has the patient's present wishes. Total time spent 55 minutes with greater than 50% of the spent in counseling and coordination of care with the patient and daughter/DPOA Carolyn; supportive and empathetic listening; medication review; pain and symptom management, introduction of hospice and hospice philosophy; anticipatory guidance. Disclaimer: The chart note was formulated using voice recognition technology and unfortunately sound alike errors may occur.
== END 2021-05-26 09:41 | disposition home or self-care (01) ==
LOC: PC 09:40
PROVIDERS: ATTEND Nurse Practitioner Family
DX: Z51.5 Encounter for palliative care (principal); C34.11 Malignant neoplasm of upper lobe, right bronchus or lung; G89.3 Neoplasm related pain (acute) (chronic); G62.9 Polyneuropathy, unspecified; K59.03 Drug induced constipation; T40.605A Adverse effect of unspecified narcotics, initial encounter; J45.909 Unspecified asthma, uncomplicated; G47.30 Sleep apnea, unspecified; F17.200 Nicotine dependence, unspecified, uncomplicated; F32.9 Major depressive disorder, single episode, unspecified; F41.9 Anxiety disorder, unspecified; M54.9 Dorsalgia, unspecified; Z95.2 Presence of prosthetic heart valve; Z79.01 Long term (current) use of anticoagulants; Z86.14 Personal history of Methicillin resistant Staphylococcus aureus infection; Z86.73 Personal history of transient ischemic attack (TIA), and cerebral infarction without residual deficits
CPT/HCPCS: 99349

== ENCOUNTER 2021-05-26 14:39 | Outpatient (CLI) | payer MEDICARE ==
[2021-05-26 20:08] LABS: INR 3.3 (0.8-1.2); PT - PROTHROMBIN TIME 36.8 secs (9.9-12.6)
== END 2021-05-26 14:40 | disposition home or self-care (01) ==
LOC: LAB.S 14:39
PROVIDERS: ATTEND Internal Medicine
DX: Z79.01 Long term (current) use of anticoagulants (principal); Z95.2 Presence of prosthetic heart valve
CPT/HCPCS: 36415; 85610

== ENCOUNTER 2021-06-16 09:40 | Outpatient (CLI) | payer MEDICARE ==
--- NOTE | 2021-06-16 18:20 | CONSULTATION NOTE ---
Palliative Care Follow Up - Referral Referring Provider: Dr. 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 Provider wore N95 mask. The patient had a CT of the chest performed 02/04/2021 that indicated a 2 cm barricaded anterior right apical lung mass that was suspicious for carcinoma. She underwent a biopsy on 03/19 that indicated small cell carcinoma. She then underwent a PET/CT on 04/17 that did not distinguish any evidence of metastases. On 04/17 she underwent a brain MRI with no evidence of metastases. She is status post consultation with radiation oncology and does not wish to proceed with any interventions and focus on her quality of life. She recently was seen and evaluated by her PCP who is supportive her of her decision regarding focusing on quality of life and this makes her decision easier and gives her peace of mind. She is contemplating looking into with dignity and has a support of her daughters. The patient continues to have chronic right shoulder pain in the area of the 2 cm lung mass that was originally identified with pain that will radiate down her arm. she had her MS Contin increased to 30 mg in the morning with continued 50 mg in the afternoon and 30 mg in the evening. She has tolerated this dose increase. She continues to utilize her hydrocodone/acetaminophen 10 mg / 325 mg approximately 4-5 times per day despite this recent dose increase. She will have periods where she will wake up at night. She is also noting intermittent shaking when her pain is escalating and will utilize a hyd rocodone/acetaminophen and this will relieve the shaking once her pain is under better control. She has been limiting her use of hydrocodone/acetaminophen and review with patient it is available if she needs it and not to restrict. Recently, her daughter and son-in-law shifted her mattress and this assisted with her sleep. On last evaluation 05/26 she was initiated on gabapentin with a gradual increase and is now presently on 300 mg in the evening. She has noticed a reduction in her neuropathy symptoms. Her daughter notes that she is dozing more during the day. The patient's appetite has perked back up much to her pleasure. She maintains her bowel regularity utilizing senna +4 tablets approximately 3 times per day and will have a bowel movement daily. She denies any abdominal pain. She has utilized milk of [employer] in the last few weeks. She continues to smoke cigarettes and has cut down to approximately 9 to 10 cigarettes/day. Patient is well-groomed and articulate seen in the living room with no evidence of distress. Cardiology: Dr. Stokes Past Medical History: Patient has a past medical history of congestive heart failure, hypertension, a rrhythmia, aorta and mitral valve replacement with mechanical valves on Coumadin therapy, seizure disorder no longer on Keppra without seizure activity for years, asthma, sleep apnea, CVA, depression, anxiety, chronic back pain, MRSA, osteomyelitis of the skull, brain surgery for benign tumors in 1989 and for plate replacement in 2017, tonsil and adenoidectomy, tobacco use. Social History - Living Situation Living arrangement: At home Living Situation: With family (daughter(Carolyn), BRYNN and grandson) Support System: Patient was born in [place] and then at the age of 1 her family relocated to [facility]. Patient was . She and her spouse have 2 daughters. One daughter resides in [place] and the other resides on [facility]. The patient lives with her daughter, Carolyn who is a social service technician and the patient's [facility] with contact number [phone]. The patient came to live with her daughter and her family approximately 3 years ago. She no longer drives. Dog, Dinesh in the home. She stayed with her daughter, Teresa for a few weeks and just returned back home a few days ago. Medications/Allergies - Medications Home Medications: Ambulatory Orders Medication Instructions Recorded Confirmed Buspirone HCl 10 mg PO BID 03/11/21 04/24/21 Cyclobenzaprine [Flexeril] 10 mg PO Q8H PRN 03/11/21 04/24/21 Duloxetine HCl [Cymbalta] 60 mg PO BID 03/11/21 04/24/21 Ferrous Sulfate 325 mg PO DAILY 03/11/21 04/24/21 Lisinopril [Zestril] 10 mg PO DAILY 03/11/21 04/24/21 Naloxone HCl [Narcan] 1 spray .ROUTE ONCE PRN MDD repeat 03/11/21 04/24/21 if no response 2-3min Quetiapine Er 200 mg PO QPM 03/11/21 04/24/21 Sumatriptan Succinate [Imitrex] 100 mg PO DAILY 03/11/21 04/24/21 Warfarin [Coumadin] 5 mg PO DAILY 03/11/21 04/24/21 Zolpidem Tartrate [Ambien] 10 mg PO QPM PRN 03/11/21 04/24/21 HYDROcodone/ACET 10/325 [[place] 10 1 tab PO Q4H PRN 04/07/21 04/24/21 mg/325 mg] Quetiapine Fumarate [Seroquel] 20 mg PO DAILY 04/22/21 04/24/21 Docusate Sodium 100Mg Capsule 1 cap PO DAILY PRN 05/11/21 05/11/21 [Colace 100Mg Capsule] Magnesium Hydroxide [Milk of PO DAILY PRN 05/11/21 Magnesia] Morphine Sulfate [Ms Contin] 30 mg PO TID 05/11/21 05/11/21 Gabapentin [Neurontin] 06/16/21 Gabapentin [Neurontin] 300 mg PO QPM 06/16/21 06/16/21 Sennosides/Docusate Sodium [Senna 4 cap PO TID 06/16/21 06/16/21 Plus 8.6-50 mg Softgel] polyethylene glycoL 3350 [Miralax] 17 gm PO BID PRN 06/16/21 06/16/21 - Allergies Allergies/Adverse Reactions: Allergies Allergy/AdvReac Type Severity Reaction Status Date / Time trazodone AdvReac Itching Verified 03/11/21 20:48 Review of Systems - Constitutional Constitutional: reports: Fatigue, Weight gain. denies: Fever, Poor appetite - Ears, Nose & Throat Ears, Nose & Throat: denies: Nasal congestion - Cardiovascular Cardiovascular: reports: Decr. exercise tolerance - Respiratory Respiratory: reports: Cough, SOB with exertion, Other (tobacco abuse) - Gastrointestinal Gastrointestinal: reports: Early satiety (intermittent), Good appetite. denies: Abdominal pain, Constipation (controlled with daily, soft bowel movement), Nausea, Vomiting - Genitourinary Genitourinary: denies: Dysuria - Musculoskeletal Musculoskeletal: reports: Other (Right scapula pain that radiates down right arm). denies: Assistive devices, Transfer issues - Neurological Neurological: reports: Numbness (RUE, improved with gabapentin), Other (Word finding difficulties, intermittent). denies: Headache (history of migraines typically twice per month---none recently) - Psychiatric Psychiatric: reports: Depression, Anxiety - Hematologic/Lymphatic Hematologic/Lymph: reports: Recurrent infections (UTIs, previously on UTI prophylaxis therapy that was discontinued with acute renal failure 3 years ago per patient and daughter) - All Other Systems All Other Systems: reports: Reviewed and negative Physical Exam - Vital Signs Temperature: 37.1 C Pulse Rate: 100 O2 Saturation: 93 (on RA) Blood Pressure: 116/60 (left arm ) - Physical Exam General Appearance: positive: No acute distress, Alert, Other (overweight, well groomed) ENT: positive: No signs of dehydration Neck: positive: Trachea midline Cardiovascular: positive: Regular rate & rhythm, Other (+audible prostetic valve clicks) Respiratory: positive: No respiratory distress, Breath sounds nml. negative: Wheezes Abdomen: positive: Non-tender, Soft, Nml bowel sounds, Other (+round) Skin: positive: No symptoms Extremities: positive: No pedal edema Neurologic/Psychiatric: positive: Oriented x3, Mood/affect nml Palliative Care - POLST Patient has POLST: Yes POLST Status: Full Code Pain: Comment (Continues with pain to RUE despite recent increase of MS Contin and continued use of hydrocodone/acetaminophen being utilized and would benefit from dose increase of MS Contin.) Feelings of wellbeing/Perceived Quality of Life: Good Sleep: Variable sleep pattern Constipation: Opoid induced, Managed Performance Status: PPS 70-80% - Palliative Care Discussion: The patient continues to feel positive regarding her decision to not proceed with any interventions for her diagnosis of small cell lung carcinoma and is grateful from the support of palliative care, at her primary care provider and her family most specifically, her daughters. She is expressing some interest in exploring with dignity and related today options regarding this and contacting end-of-life [place] for a volunteer to assist with understanding the process in the future as she begins to tease out goals. Provided reassurance that even if she opts with dignity she can still be supported by hospice services and as well as palliative care until she transitions to hospice and this provided her peace of mind. She has had improvement in her neuropathy with a reduction in numbness to her right upper extremity and would benefit from further gabapentin introduction in the morning to reduce symptoms and stabilize her neuropathy. We will introduce gabapentin slowly titrating up to 300 mg in the morning and continue 300 mg in the evening. The patient continues to utilize approximately 4-5 hydrocodone/acetaminophen per day and given this would benefit from dose increase of her MS Contin to 30 mg 3 times daily. Reviewed purpose, dose, and side effects at length with the patient and daughter with the dose increase of MS Contin more specifically revolving around constipation and management for prevention of the symptoms. Patient does have a living will and presently has a POLST as full code and interventions. Did introduce exploring goals of care moving forward as well as determining in the future if based on her goals if she would wish to update her POLST and this is something that she is open to continued exploration. Impression and Recommendations - Palliative Care Impression: This is a nael 56-year-old female with stage I small cell lung cancer in the setting of longstanding tobacco abuse, pain of neoplastic origin, constipation and neuropathy to the right upper extremity. She would benefit from dose increase of MS Contin as well as gabapentin for management. The patient has elected not to proceed with any interventions related to her small cell lung cancer after weighing benefits versus burdens and is electing to focus on quality of life and comfort measures. She continues to explore goals of care and is grateful for the support surrounding her regarding her decisions. Palliative care to continue provide support for care coordination, teasing out goals of care, pain and symptom management as well as anticipatory guidance with transition to hospice when medically appropriate. Recommendations/Counseling Done: 1. Pain of neoplastic origin. Will reported to right scapula likely related to tumor burden from small cell lung cancer. Palliative care to manage pain medication. Would benefit from further dose titration of MS Contin will increase to 30 mg 3 times daily (8 AM, 2 PM, 8 PM (Rx for 30 mg tablets to reflect this dose increase [facility] in [place]. Patient has 30 mg and 50 mg MS Contin tablets in the home. Continue hydrocodone 10 mg/acetaminophen 325 mg take 1 tablet every 4 hours as needed for pain and to continue to report a ministration of dose in order for dose titration of MS Contin moving forward. With dose increase patient at M ED of 90. Has Narcan in the home. Continue to monitor and adjust pain medications as needed to optimize comfort and maintain function. 2. Neuropathy to right upper extremity. Tumor burden contributing to small cell lung cancer. Continue gabapentin 300 mg at bedtime. Initiate gabapentin 100 mg tablets take 1 capsule in the morning x3 days, then increase to 2 capsules in the morning x3 days, then increase to 3 capsules in the morning and continue. Reviewed dose administration and titration with patient and daughter at length with understanding verbalized. New Rx for gabapentin 300 mg capsules sent to [facility] in [place] to patient's request. May consider dose reduction of duloxetine in the future. 3. Constipation. Presently well controlled. Opioid medication in sedentary li festyle contributing. Continue senna +4 tablets 3 times daily. Aware to utilize milk of magnesia if no bowel movement. Requested to obtain MiraLAX to have on hand in the home and may utilize 1 cap up to twice a day if needed and reviewed dose titration. Patient is aware the goal remains to have a daily, soft bowel movement. 4. Small cell lung cancer, stage I. No evidence of metastases on imaging. Status post medical oncology and radiation oncology. Patient has elected not to proceed with interventions and wishes to focus on quality of life and symptom management with comfort care approach. Palliative care to continue to follow and support until disease progression demonstrated and then transition to hospice services. 5. Advanced care planning. Patient has POLST in place as full code. Introduced today moving forward to look at readdressing POLST based on the patient's goals and alignment with her medical care and is open to this. She is been shifting her focus towards a comfort based approach. She does have a living will in place and designated healthcare power of county attorney is her daughter, Carolyn. We will continue to build rapport and explore goals of care. Total time spent 50 minutes with greater than 50% of the spent in counseling and coordination of care with the patient and daughter/DPOA Carolyn; supportive listening; medication review and management; pain and symptom management; exploring thoughts regarding with dignity and support; and anticipatory guidance. Disclaimer: The chart note was formulated using voice recognition technology and unfortunately sound alike errors may occur.
== END 2021-06-16 09:41 | disposition home or self-care (01) ==
LOC: PC 09:40
PROVIDERS: ATTEND Nurse Practitioner Family
DX: Z51.5 Encounter for palliative care (principal); C34.11 Malignant neoplasm of upper lobe, right bronchus or lung; G89.3 Neoplasm related pain (acute) (chronic); G62.9 Polyneuropathy, unspecified; K59.03 Drug induced constipation; T40.2X5A Adverse effect of other opioids, initial encounter; F17.210 Nicotine dependence, cigarettes, uncomplicated; Z79.899 Other long term (current) drug therapy; Z79.891 Long term (current) use of opiate analgesic
CPT/HCPCS: 99349

== ENCOUNTER 2021-06-17 14:26 | Outpatient (CLI) | payer MEDICARE | END 2021-06-17 14:27 | disposition critical access hospital (66) | LOC: EMS 14:26 | DX: T40.2X4A Poisoning by other opioids, undetermined, initial encounter (principal) | CPT/HCPCS: A0425; A0427 ==

== ENCOUNTER 2021-06-17 14:51 | Observation (INO) | payer MEDICARE ==
[2021-06-17 15:23] LABS: BASOPHILS # (AUTO) 0.1 10^3/uL (0.0-0.1); BASOPHILS % (AUTO) 0.6 %; EOSINOPHILS # (AUTO) 0.1 10^3/uL (0.0-0.7); EOSINOPHILS % (AUTO) 0.6 %; HCT - HEMATOCRIT 34.5 % (37.0-47.0); HGB - HEMOGLOBIN 10.6 g/dL (12.0-16.0); LYMPHOCYTES % (AUTO) 12.3 %; MEAN CORPUSCULAR HEMOGLOBIN 30.5 pg (27.0-31.0); MEAN CORPUSCULAR HGB CONC 30.7 g/dL (32.0-36.0); MEAN CORPUSCULAR VOLUME 99.4 fL (81.0-99.0); MONOCYTES # (AUTO) 0.5 10^3/uL (0.0-1.0); NEUTROPHILS # (AUTO) 6.5 10^3/uL (1.5-6.6); PLT - PLATELET COUNT 188 10^3/uL (130-450); RED BLOOD COUNT 3.47 10^6/uL (4.20-5.40); RED CELL DISTRIBUTION WIDTH 14.5 % (12.0-15.0); WHITE BLOOD COUNT 8.2 x10^3/uL (4.8-10.8)
--- NOTE | 2021-06-17 15:25 | ED Physician Documentation ---
History of Present Illness - Stated complaint Stated Complaint: FALL/OD/ - Chief complaint Chief Complaint: General - Additonal information Additional information: 56-year-old female who has a known history of lung cancer currently being seen by palliative care presents the emergency department for evaluation of acutely altered mental status. The patient was last seen normal yesterday evening before going to bed. Her daughter reports that she allowed her to sleep in today but when she went to arouse her around 1 PM noted that she was slurring her words as well as flailing in bed. Patient was seen by palliative care yesterday and had dose adjustments to her gabapentin and Morphine. It is unclear from history and daughter whether the patient had taken more of her morphine then had been prescribed, though she laid out 3 morphine pills before bed and this morning they were gone. Pt is unsure if she took them. Patient is unable at this time to answer questions appropriately and appears to have some slurred speech as well as word salad. No other obvious focal deficit is noted. The daughter reports that the patient is a palliative care patient though they are hoping to transition to hospice though that has not yet occurred. Pt is anticoagulated on coumadin as she has 2 valve replacements Review of Systems Unable to obtain: Confused PD PAST MEDICAL HISTORY - Past Medical History Cardiovascular: Congestive heart failure, Hypertension, Arrhythmia, Valve disorder Respiratory: Asthma, Sleep apnea Neuro: CVA, Seizure disorder, Other Endocrine/Autoimmune: None GI: None PHARMACEUTICAL LABORATORY TECHNICIAN: None : Other HEENT: None Psych: Depression, Anxiety Musculoskeletal: Chronic back pain - Past Surgical History Past Surgical History: Yes Cardiovascular: Valve replacement Neuro: Other HEENT: Tonsil/Adenoidectomy - Present Medications Home Medications: Ambulatory Orders Medication Instructions Recorded Confirmed Buspirone HCl 10 mg PO BID 03/11/21 04/24/21 Cyclobenzaprine [Flexeril] 10 mg PO Q8H PRN 03/11/21 04/24/21 Duloxetine HCl [Cymbalta] 60 mg PO BID 03/11/21 04/24/21 Ferrous Sulfate 325 mg PO DAILY 03/11/21 04/24/21 Lisinopril [Zestril] 10 mg PO DAILY 03/11/21 04/24/21 Naloxone HCl [Narcan] 1 spray .ROUTE ONCE PRN MDD repeat 03/11/21 04/24/21 if no response 2-3min Quetiapine Er 200 mg PO QPM 03/11/21 04/24/21 Sumatriptan Succinate [Imitrex] 100 mg PO DAILY 03/11/21 04/24/21 Warfarin [Coumadin] 5 mg PO DAILY 03/11/21 04/24/21 Zolpidem Tartrate [Ambien] 10 mg PO QPM PRN 03/11/21 04/24/21 HYDROcodone/ACET 10/325 [[place] 10 1 tab PO Q4H PRN 04/07/21 04/24/21 mg/325 mg] Quetiapine Fumarate [Seroquel] 20 mg PO DAILY 04/22/21 04/24/21 Docusate Sodium 100Mg Capsule 1 cap PO DAILY PRN 05/11/21 05/11/21 [Colace 100Mg Capsule] Magnesium Hydroxide [Milk of PO DAILY PRN 05/11/21 Magnesia] Morphine Sulfate [Ms Contin] 30 mg PO TID 05/11/21 05/11/21 Gabapentin [Neurontin] 06/16/21 Gabapentin [Neurontin] 300 mg PO QPM 06/16/21 06/16/21 Sennosides/Docusate Sodium [Senna 4 cap PO TID 06/16/21 06/16/21 Plus 8.6-50 mg Softgel] polyethylene glycoL 3350 [Miralax] 17 gm PO BID PRN 06/16/21 06/16/21 - Allergies Allergies/Adverse Reactions: Allergies Allergy/AdvReac Type Severity Reaction Status Date / Time trazodone AdvReac Itching Verified 06/17/21 15:09 - Social History Does the pt smoke?: Yes Smoking Status: Current every day smoker Does the pt drink ETOH?: No Does the pt have substance abuse?: No - Immunizations Immunizations are current?: Yes - POLST Patient has POLST: Yes PD ED PE EXPANDED - General General: Alert, No acute distress, Well developed/nourished - Neck Neck: Supple w/out meningeal sx. No: Adenopathy - Cardiac Cardiac: Regular Rate, Murmur Present, Radial strong equal, Pedal strong equal, Cap refill < 2 sec - Respiratory Respiratory: Clear to ausultation fam. No: Distress, Labored - Abdomen Abdomen: Normal Bowel sounds. No: Tender to palpation - Back Back: Normal exam. No: Vertebral tenderness, Soft tissue tenderness - Derm Derm: Normal color, Warm and dry. No: Rash - Extremities Extremities: Normal, Pedal Pulses Present. No: Deformity, Tenderness, Pedal ed po bilateral - Neuro Neuro: Alert and Oriented X 3. No: CNII-XII intact (confused, slurred speech), Normal speech - GCS Eye Opening: Spontaneous Motor: Obeys Commands Verbal: Confused Total: 14 Results - Vitals Vitals: Vital Signs - 24 hr 06/17/21 06/17/21 06/17/21 15:09 15:23 16:00 Temperature 36.6 C 36.6 C Heart Rate 99 99 96 Respiratory 20 20 18 Rate Blood Pressure 109/67 109/67 102/89 H O2 Saturation 100 100 94 06/17/21 06/17/21 16:30 17:00 Temperature Heart Rate 101 H 100 Respiratory 17 Rate Blood Pressure 112/69 O2 Saturation 93 93 Oxygen O2 Source Room air Oxygen Flow Rate 6 - EKG (time done) 1542 Rate: Rate (enter#) Rhythm: NSR Intervals: RBBB QRS: Normal Ischemia: Non specific changes (lateral leads) Compare to prior EKG: Old EKG unavailable Computer interpretation: Agree with computer - Labs Labs: Laboratory Tests 06/17/21 06/17/21 06/17/21 15:05 15:09 15:09 WBC 8.2 RBC 3.47 L Hgb 10.6 L Hct 34.5 L MCV 99.4 H MCH 30.5 MCHC 30.7 L RDW 14.5 Plt Count 188 MPV 10.0 Neut # (Auto) 6.5 Lymph # (Auto) 1.0 L [place] # (Auto) 0.5 Eos # (Auto) 0.1 Baso # (Auto) 0.1 Absolute Nucleated RBC 0.00 Nucleated RBC % 0.0 PT 36.9 H INR 3.3 H Sodium 128 L Potassium 6.3 H* Chloride 95 L Carbon Dioxide 24 Anion Gap 9.0 BUN 63 H Creatinine 3.2 H Estimated GFR (MDRD) 15 L Glucose 117 H Lactic Acid Calcium 8.5 Total Bilirubin 0.5 AST 33 ALT 20 Alkaline Phosphatase 55 Total Protein 7.4 Albumin 4.1 Globulin 3.3 Albumin/Globulin Ratio 1.2 Urine Color Urine Clarity Urine pH Ur Specific [place] Urine Protein Urine Glucose (UA) Urine Ketones Urine Occult Blood Urine Nitrite Urine Bilirubin Urine Urobilinogen Ur Leukocyte Esterase Urine RBC Urine WBC Ur Squamous Epith Cells Urine Bacteria Urine Culture Comments 06/17/21 06/17/21 06/17/21 15:09 16:28 16:48 WBC RBC Hgb Hct MCV MCH MCHC RDW Plt Count MPV Neut # (Auto) Lymph # (Auto) [place] # (Auto) Eos # (Auto) Baso # (Auto) Absolute Nucleated RBC Nucleated RBC % PT INR Sodium 131 L Potassium 5.4 H Chloride 97 L Carbon Dioxide 25 Anion Gap 9.0 BUN 60 H Creatinine 2.9 H Estimated GFR (MDRD) 17 L Glucose 65 L Lactic Acid 1.0 Calcium 8.4 L Total Bilirubin AST ALT Alkaline Phosphatase Total Protein Albumin Globulin Albumin/Globulin Ratio Urine Color YELLOW Urine Clarity HAZY Urine pH 6.0 Ur Specific [place] 1.020 Urine Protein NEGATIVE Urine Glucose (UA) NEGATIVE Urine Ketones NEGATIVE Urine Occult Blood TRACE-INTA Urine Nitrite POSITIVE H Urine Bilirubin NEGATIVE Urine Urobilinogen 0.2 (NORMAL) Ur Leukocyte Esterase NEGATIVE Urine RBC 0-5 Urine WBC 0-3 Ur Squamous Epith Cells RARE Squamous Urine Bacteria Many H Urine Culture Comments INDICATED - Rads (name of study) CT head Radiology: Final report received (No acute findings. No intracranial hemorrhage or mass-effect. Stable left craniotomy and temporal lobe resection) Ct abd Radiology: Final report received (Moderate bilateral hydronephrosis and hydroure ter can be seen. Moderate cardiomegaly) CT chest Radiology: Final report received (The superior aspect of the right upper lobe there is a 1.8 cm masslike focus lesion.) PD MEDICAL DECISION MAKING - ED course Complexity details: reviewed results, re-evaluated patient, d/w patient, d/w benefits sales consultant ED course: 56-year-old female who has a known history of lung cancer and is currently receiving palliative care with no radiation or chemotherapy presents the emergency department with acutely altered mental status. It appears that she may have taken up to 90 mg of her morphine inadvertently though this has not yet been confirmed. On presentation she had slurred speech and inappropriate words but over the course of her time here in the ER she has become much more lucid. Initially screening labs showed hyperkalemia with a K of 6.3. EKG showed no changes consistent with hyperkalemia. Patient was given 10 units of insulin as well as D50. On repeat her K had reduced down to 5.4. Unfortunately she is noted to also have new and worsening acute kidney injury. The nurses noted during in and out cath that more than 1000 mL of urine was in the abdomen. Subsequent CT imaging of the head was without acute findings. Chest CT did confirm lung cancer. The CT of the abdomen did show bilateral hydronephrosis and hydroureter. No obvious stones. Urine is nitrite positive thus she is given 1 g of ceftriaxone. Patient presents to the emergency department acutely altered likely secondary to opioid use in the setting of acute kidney injury likely secondary to a bladder outlet obstruction. The patient has been presented to Dr. Asif for observation. Departure - Departure Disposition: ED Place in Observation Clinical Impression: ADEOLA (acute kidney injury), Urinary obstruction Lung cancer Qualifiers: Laterality: unspecified laterality Lung location: upper lobe of lung Qualified Code(s): C34.10 - Malignant neoplasm of upper lobe, unspecified bronchus or lung
[2021-06-17 15:28] LABS: INR 3.3 (0.8-1.2); PT - PROTHROMBIN TIME 36.9 secs (9.9-12.6)
--- NOTE | 2021-06-17 15:28 | XRAY Report ---
PROCEDURE: Chest 1 View X-Ray INDICATIONS: chest pain TECHNIQUE: One view of the chest was acquired. COMPARISON: Chest x-ray 01/16/2021 FINDINGS: Surgical changes and devices: None. Lungs and pleura: There is an overall appearance of increased vascularity. There is slight increased opacity within the right base. Mediastinum: Mediastinal contours appear normal. Heart size is enlarged. Bones and chest wall: No suspicious bony lesions. Overlying soft tissues appear unremarkable. IMPRESSION: Craniotomy with increased vascularity suggestive of edema. Mild increased right basilar opacity is pr esent which may represent edema versus developing pneumonia/atelectasis. Reviewed by: Adrienne Patterson MD on 06/17/2021 3:27 PM PST Approved by: Adrienne Patterson MD on 06/17/2021 3:27 PM [facility] Station ID: [id number]
[2021-06-17 15:31] LABS: ALBUMIN 4.1 g/dL (3.2-5.5); ALBUMIN/GLOBULIN RATIO 1.2 (1.0-2.2); BILIRUBIN,TOTAL 0.5 mg/dL (0.2-1.0); CALCIUM 8.5 mg/dL (8.5-10.3); CREATININE 3.2 mg/dL (0.4-1.0); TOTAL PROTEIN 7.4 g/dL (6.7-8.2)
[2021-06-17 15:32] LABS: POTASSIUM 6.3 mmol/L (3.5-5.0)
[2021-06-17] MEDS ORDERED: INSULIN REGULAR HUMAN 100 UNIT/1 ML 10 ML MDV IVP STA (15:35)
[2021-06-17] MEDS ORDERED: SODIUM POLYSTYRENE SULFONATE 15 GM/60 ML BOTTLE PO STA (15:36)
[2021-06-17] MEDS ORDERED: DEXTROSE 50% ABBOJECT 25 GM/50 ML SYRINGE IVP STA ×2 (15:36→17:08)
[2021-06-17 16:33] LABS: BILIRUBIN,URINE NEGATIVE (NEGATIVE); GLUCOSE, URINE (UA) NEGATIVE (NEGATIVE); KETONES,URINE (UA) NEGATIVE (NEGATIVE); LEUKOCYTE ESTERASE, URINE NEGATIVE (NEGATIVE); NITRITE,URINE POSITIVE (NEGATIVE); OCCULT BLOOD,URINE TRACE-INTA (NEGATIVE); PROTEIN,URINE NEGATIVE (NEGATIVE); UROBILINOGEN,URINE 0.2 (NORMAL) E.U./dL (NORMAL)
[2021-06-17 16:36] LABS: CLARITY,URINE HAZY (CLEAR)
[2021-06-17] MEDS ORDERED: SODIUM CHLORIDE 0.9% 1,000 ML IV STA (16:45)
[2021-06-17 16:46] LABS: BACTERIA,URINE Many /HPF (None Seen); RBC,URINE 0-5 /HPF (0-5); SQUAMOUS EPITHELIAL CELL,UR RARE Squamous (<= Few); WBC,URINE 0-3 /HPF (0-5)
[2021-06-17 17:03] LABS: CALCIUM 8.4 mg/dL (8.5-10.3); CREATININE 2.9 mg/dL (0.4-1.0); POTASSIUM 5.4 mmol/L (3.5-5.0)
--- NOTE | 2021-06-17 17:07 | CT Report ---
PROCEDURE: CT brain without contrast INDICATIONS: Altered mental status TECHNIQUE: Noncontrast 4.5 mm thick angled axial sections acquired from the foramen magnum to the vertex. For r adiation dose reduction, the following was used: automated exposure control, adjustment of mA and/or kV according to patient size. COMPARISON: 09/01/2020 FINDINGS: Image quality: Excellent. CSF spaces: Basal cisterns are patent. No extra-axial fluid collections. Ventricles are normal in size and shape. Brain: No midline shift. No intracranial masses or hemorrhage. Latif-white matter interface is norm al. Left temporal resection cavity remains unchanged from the prior. Skull and face: Calvarium and visualized facial bones are intact, without suspicious lesions. Left pterional craniotomy noted secured by round and straight plates. Sinuses: Visualized sinuses and mastoids are clear. IMPRESSION: 1. No acute findings. No intracranial hemorrhage or mass effect. 2. Stable left craniotomy and temporal lobe resection. Reviewed by: Terence Tay MD on 06/17/2021 4:05 PM [place] Approved by: Terence Tay MD on 06/17/2021 4:05 PM [place] Station ID: [id number]
--- NOTE | 2021-06-17 17:15 | CT Report ---
PROCEDURE: CHEST WO INDICATIONS: ams TECHNIQUE: Noncontrast 1mm axial images were acquired from the pulmonary apices to the posterior costophrenic an gles. Axial 5 mm soft tissue kernel reconstructions were performed as well as 8 mm axial MIP and cor onal and sagittal 5 mm reformations. For radiation dose reduction, the following was used: automate d exposure control, adjustment of mA and/or kV according to patient size. COMPARISON: Correlation is made with the company head CT and the abdomen and pelvis CT, 06/17/2021. FINDINGS: Image quality: Excellent. Lungs and pleura: Within the right upper lobe, there is a masslike opacity seen that measures up to 1.8 cm. No additional focal pulmonary abnormalities are seen. No pleural effusions or pneumothorax. Central and peripheral airways are patent and normal in caliber. Mediastinum: Sternotomy wires and an aortic valve prosthesis and a mitral valve prosthesis can be see n. Heart size is moderately to prominently enlarged, particularly the right heart. Abandoned epicardi al leads are seen. No pericardial effusion. No mediastinal adenopathy by size criteria. The pulmon foster arteries are prominent in size. The aortic caliber is within normal limits. Esophagus is normal i n caliber. No hiatal hernia. Bones and chest wall: No suspicious bony lesions. There is a remote appearing T6 anterior wedge def ormity seen. No acute appearing vertebral body compression fractures. No axillary or supraclavicular adenopathy by size criteria. The thyroid is normal in size and there are no incidental findings. Abdomen: An accessory splenule is incidentally noted along the anterior aspect of the primary splee n. Visualized upper abdominal solid organs and bowel loops appear normal in the absence of contrast . IMPRESSION: At the superior aspect of the right upper lobe, there is a 1.8 cm masslike focus seen. There is fixat ion or Jeffery gives additional history that this patient has known lung cancer. Cardiomegaly with aortic valve prosthesis and mitral valve prosthesis. Incidental note is made of: Abandoned epicardial leads Accessory splenule Note: Case discussed by telephone with Emy Gil at 4:11 PM [place] time on 06/17/2021. Reviewed by: Ruben Royal MD on 06/17/2021 4:13 PM [place] Approved by: Ruben Royal MD on 06/17/2021 4:13 PM [place]ST Station ID: [id number]
--- NOTE | 2021-06-17 17:17 | CT Report ---
PROCEDURE: Abdomen/Pelvis WO INDICATIONS: AMS TECHNIQUE: Noncontrast 5 mm thick sections acquired from the diaphragms to the symphysis. 5 mm coronal and sagi ttal reformats were then performed. For radiation dose reduction, the following was used: automated exposure control, adjustment of mA and/or kV according to patient size. COMPARISON: Correlation is made with the accompanying CT examinations, 06/17/2021. FINDINGS: Image quality: Excellent. ABDOMEN: Lung bases: Lung bases are clear. There is cardiomegaly. A mitral valve prosthesis is partially seen . Abandoned epicardial leads are seen. Solid organs: Liver and spleen are normal in size. Gallbladder wall does not appear thickened. P ancreas is normal in contours. No adrenal nodules. Kidneys are normal in size. Moderate bilateral h ydronephrosis and hydroureter can be seen. Peritoneum and bowel: Unenhanced bowel loops demonstrate normal wall thickness and caliber. No free fluid or air. Nodes and vessels: No retroperitoneal or mesenteric adenopathy by size criteria. Aorta and inferior vena cava are normal in caliber. Atherosclerotic calcification is seen. Miscellaneous: No ventral hernias. PELVIS: Genitourinary: Bladder wall thickness is normal. An atrophic uterus can be seen. Miscellaneous: No inguinal hernias or adenopathy. Bones: No suspicious bony lesions. No vertebral body compression fractures. Lower lumbar spine deg enerative changes are seen, with milder degenerative changes seen elsewhere. IMPRESSION: Moderate bilateral hydronephrosis and hydroureter can be seen. Moderate cardiomegaly. Incidental note is made of: Mitral valve prosthesis Abandoned epicardial leads Note: Case discussed by telephone with Emy Gil at 4:11 PM [place] time on 06/17/2021. Reviewed by: Ruben Royal MD on 06/17/2021 4:15 PM [place]ST Approved by: Ruben Royal MD on 06/17/2021 4:15 PM [place]ST Station ID: [id number]
[2021-06-17] MEDS ORDERED: SODIUM CHLORIDE FLUSH 0.9% 10 ML SYRINGE IVP PRN (17:21)
[2021-06-17] MEDS ORDERED: ONDANSETRON ODT 4 MG TABLET TL PRN (17:21)
[2021-06-17] MEDS ORDERED: cefTRIAXone 1 GM VIAL IVP STA (17:37)
--- NOTE | 2021-06-17 18:04 | PHARMACY PROGRESS NOTE ---
- Best Possible Medication History Admit Date and Time: 06/17/21 1721 Processed by: Pharmacy Medication History completed: Yes Secondary Source(s): Physician records, Pharmacy records, Insurance records As the person ultimately responsible for medication therapy, providers are able to order a medication from an existing home medication list in [facility] via the "Reconcile Routine" prior to Confirmation of that medication by support service tech. Such practice is discouraged except when the physician, in their clinical judgment, deems that a medical need exists for a medication without regard to previous use.
[2021-06-17] MEDS ORDERED: ALBUTEROL NEB 2.5 MG/3 ML INH PRN (18:10)
--- NOTE | 2021-06-17 18:10 | HISTORY & PHYSICAL EXAMINATION ---
Chief Complaint - Chief Complaint Chief Complaint: Confusion History of Present Illness - Admitted From Admitted From:: Home - History Obtained From Records Reviewed: Yes History obtained from: Patient's daughter, ER provider, EMR Exam Limitations: Patient is altered and a poor historian. - History of Present Illness HPI Comment/Other: This is a 56-year-old female with a past medical history significant for stage I small cell lung cancer, mechanical mitral valve on Coumadin who presents today due to confusion that began this morning. Most of the history is obtained from the patient's daughter as the patient is altered and unable to provide any history. Her daughter tells me that the patient became confused this morning and her speech was mumbled and that the patient was flailing her arms. She states that at baseline she is alert and oriented without any cognitive impairment. She was at her baseline yesterday. 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 Her daughter states that that the patient may have taken extra dose of the morphine as well. She is followed by Jacklyn Mullen of the palliative care service. The patient is now on hospice but has declined any treatment for the small cell lung cancer. She is no longer followed by oncology. Her daughter tells me the patient has been eating and drinking adequately over the past few days. She is also been urinating to her knowledge but she cannot be definitive regarding this. In the emergency department, she underwent labs which showed a potassium of 6.4 and a creatinine of 3.1. She underwent a CT of the head which showed no acute abnormalities. CT of the abdomen pelvis did reveal bilateral hydronephrosis. The patient was straight cathed for over 1 L of urine. She has already had improvement in her mentation since arrival to the emergency department but she is still quite altered and therefore medicine was consulted for admission. I did discuss goals of care with the daughter and she confirms the patient is a DNR. History - Past Medical History Cardiovascular: reports: Congestive heart failure, Hypertension, Arrhythmia, Valve disorder Respiratory: reports: Asthma, Sleep apnea Neuro: reports: CVA, Seizure disorder Endocrine/Autoimmune: reports: None GI: reports: None SUBWAY REPAIR SUPERVISOR: reports: None HEENT: reports: None Psych: reports: Depression, Anxiety Musculoskeletal: reports: Chronic back pain MRSA Hx?: No Other Past Medical History: Stage 1 small cell lung cancer. - Past Surgical History Cardiovascular: reports: Valve replacement (Mechanical mitral valve) Neuro: reports: Craniotomy (Brain mass.), Other (Debridement for osteomyelitis of the skull.) HEENT: reports: Tonsil/Adenoidectomy - Family & Social History Family History: Mother: , Cancer, Father: , Sister: Cancer Family History Comment/Other: Her mother from lung cancer. She is also a smoker. She has a sister with a history of throat cancer. She was also a small. Living arrangement: At home Living Situation: With family (daughter(Carolyn), BRYNN and grandson) Social History Notes: She lives with her daughter, Carolyn. The patient smokes 10 cigarettes a day and has been smoking for most of her life. At least 30 years. She rarely drinks alcohol. - Substance History Use: Uses substance without health or social issues: Tobacco (1/2 ppd smoker) Meds/Allgy - Home Medications Home Medications: Ambulatory Orders Medication Instructions Recorded Confirmed Buspirone HCl 10 mg PO BID 03/11/21 06/17/21 Cyclobenzaprine [Flexeril] 10 mg PO Q8H PRN 03/11/21 06/17/21 Duloxetine HCl [Cymbalta] 60 mg PO BID 03/11/21 06/17/21 Ferrous Sulfate 325 mg PO DAILY 03/11/21 06/17/21 Lisinopril [Zestril] 10 mg PO DAILY 03/11/21 06/17/21 Naloxone HCl [Narcan] 1 spray MILLER ONCE PRN MDD repeat if 03/11/21 06/17/21 no response 2-3min Sumatriptan Succinate [Imitrex] 100 mg PO DAILY PRN 03/11/21 06/17/21 Warfarin [Coumadin] 7.5 mg PO DAILY 03/11/21 06/17/21 Zolpidem Tartrate [Ambien] 10 mg PO QPM PRN 03/11/21 06/17/21 HYDROcodone/ACET 10/325 [[place] 10 1 tab PO Q4H PRN 04/07/21 06/17/21 mg/325 mg] Docusate Sodium 100Mg Capsule 1 cap PO DAILY PRN 05/11/21 06/17/21 [Colace 100Mg Capsule] Magnesium Hydroxide [Milk of 30 ml PO DAILY PRN 05/11/21 06/17/21 Magnesia] Gabapentin [Neurontin] 300 mg PO BID 06/16/21 06/17/21 Sennosides/Docusate Sodium [Senna 4 cap PO TID PRN 06/16/21 06/17/21 Plus 8.6-50 mg Softgel] polyethylene glycoL 3350 [Miralax] 17 gm PO BID PRN 06/16/21 06/17/21 Morphine Sulfate ER [Ms Contin] 30 mg PO BID 06/17/21 06/17/21 Quetiapine Fumarate [Quetiapine 200 mg PO QPM 06/17/21 06/17/21 Fumarate ER] Rosuvastatin Calcium [Crestor] 10 mg PO QPM 06/17/21 06/17/21 - Allergies Allergies/Adverse Reactions: Allergies Allergy/AdvReac Type Severity Reaction Status Date / Time trazodone AdvReac Itching Verified 06/17/21 15:09 Review of Systems - All Other Systems All Other Systems: reports: Other (Unable to obtain due to altered mental status.) Prior Level of Functionality: She is independent with her ADLs. Exam - Vital Signs Reviewed Vital Signs: Yes Vital Signs: Vital Signs x48h Temp Pulse Resp BP Pulse Ox 06/17/21 17:30 98 18 116/61 97 06/17/21 17:00 100 17 112/69 93 06/17/21 16:30 101 H 93 06/17/21 16:00 96 18 102/89 H 94 06/17/21 15:23 36.6 C 99 20 109/67 100 06/17/21 15:09 36.6 C 99 20 109/67 100 - Physical Exam General Appearance: positive: No acute distress, Alert Eyes Bilateral: positive: Normal inspection, Conjunctivae nml ENT: positive: Dry mucous membranes. negative: No signs of dehydration Respiratory: positive: No respiratory distress, Wheezes (Faint expiratory wheezes.) Cardiovascular: positive: Regular rate & rhythm. negative: Tachycardia Abdomen: positive: Non-tender, No distention. negative: Tenderness Skin: positive: Warm, Dry Neurologic/Psychiatric: positive: Disoriented to place, Other (She is moving all 4 extremities. No obvious focal deficits.). negative: Disoriented to person, Disoriented to time (She is oriented to year and month) Conclusion/Plan - Problem List (1) Altered mental status Conclusion/Plan: She has improved since arrival to the emergency department but still remains altered. This likely related to the acute kidney injury and the recent increased dose of her gabapentin and morphine. CT showed no acute abno rmalities. We will hold her sedatives for the time being and hydrated with IV fluids. I suspect she will improve over the next 24 hours. (2) ADEOLA (acute kidney injury) Conclusion/Plan: Her creatinine is elevated at 3.2 and her baseline is approximately 1.4. This is likely prerenal injury as well as related to the bilateral hydronephrosis that was evident on imaging. She had no obvious stone. She may have had urinary retention causing hydronephrosis due to the use of opiates. She was straight cathed for 1 L. We will hydrate her with IV fluids overnight and hold her home lisinopril. Bladder scan every 4 hours and if she shows evidence of urinary retention she will need a Montez catheter and outpatient follow-up with urology. (3) Hydronephrosis Conclusion/Plan: This is the likely cause of her acute kidney injury. There is no evidence of stone. This is likely related to urinary retention secondary to medications. We will BladderScan her as mentioned above and consider a Montez catheter. (4) Hyperkalemia Conclusion/Plan: Potassium is elevated at 6.3 but this improved to 5.4 after treatment in the emergency department. His leg secondary to acute kidney injury and lisinopril. We will recheck again this evening and hold her home lisinopril. (5) Small cell lung cancer, right upper lobe Conclusion/Plan: Has known nonmetastatic stage I small cell lung cancer of the right upper lobe. She has declined treatment. She is followed by Jacklyn Mullen of palliative care. 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 She is on gabapentin and morphine at home. We will hold her home medications for the time being and will resume her previous dose on discharge. (7) H/O mitral valve replacement with mechanical valve Conclusion/Plan: Stable. Her INR is therapeutic. We will continue Coumadin. - Lab Results Lab results reviewed: Yes Fish Bones: 06/17/21 15:09 06/17/21 16:48 - Diagnostic Imaging Results Diagnostic Imaging Results: positive: Final report reviewed - EKG Results EKG Interpreted Independently: Yes EKG Comparison: No prior EKG EKG Findings: EKG shows sinus rhythm without evidence of ischemia. Core Measures - Anticipated LOS I expect patient to be DC'd or transferred within 96 hours.: Yes - Issues Hospital Issues and Management Plan: 56-year-old female with lung cancer and chronic pain presents with acute on chronic kidney injury secondary to hydronephrosis and also mental status secondary to unintentional drug overdose. Will place in observation for IV fluids and avoid sedatives. - DVT/VTE - Prophylaxis VTE/DVT Device ordered at admit?: No VTE/DVT Prophylaxis med ordered at admit?: Yes
[2021-06-17] MEDS: LACTATED RINGERS 1,000 ML IV SCH (18:40)
[2021-06-17 18:59] LABS: B. PARAPERTUSSIS- RESP PCR PAN NOT DETECTED; B. PERTUSSIS- RESP PCR PANEL NOT DETECTED; C. PNEUMONIAE- RESP PCR PANEL NOT DETECTED; CORONAVIRUS 229E-RESP PCR NOT DETECTED; CORONAVIRUS HKU1-RESP PCR NOT DETECTED; CORONAVIRUS NL63-RESP PCR NOT DETECTED; CORONAVIRUS OC43-RESP PCR NOT DETECTED; HUMAN METAPNEUMOVIRUS NOT DETECTED; INFLUENZA A- RESP PCR PANEL NOT DETECTED; INFLUENZA B - RESP PCR PANEL NOT DETECTED; M. PNEUMONIAE- RESP PCR PANEL NOT DETECTED; PARAINFLUENZA VIRUS 1 NOT DETECTED; PARAINFLUENZA VIRUS 2 NOT DETECTED; PARAINFLUENZA VIRUS 3 NOT DETECTED; PARAINFLUENZA VIRUS 4 NOT DETECTED; RHINOVIRUS/ENTEROVIRUS NOT DETECTED; RSV- RESP PCR PANEL NOT DETECTED; SARS-CoV-2 -RESP PCR PANEL NOT DETECTED
[2021-06-17 21:06] LABS: CREATININE 2.3 mg/dL (0.4-1.0)
[2021-06-17] MEDS: SODIUM CHLORIDE FLUSH 0.9% 10 ML SYRINGE IVP SCH (23:19)
[2021-06-18] MEDS: LACTATED RINGERS 1,000 ML IV SCH (04:29)
[2021-06-18] MEDS: ACETAMINOPHEN 325 MG TABLET PO PRN ×2 (05:29→16:14)
[2021-06-18 06:39] LABS: BASOPHILS % (AUTO) 0.6 %; EOSINOPHILS # (AUTO) 0.1 10^3/uL (0.0-0.7); EOSINOPHILS % (AUTO) 1.3 %; HCT - HEMATOCRIT 31.3 % (37.0-47.0); HGB - HEMOGLOBIN 9.7 g/dL (12.0-16.0); LYMPHOCYTES % (AUTO) 16.3 %; MEAN CORPUSCULAR HEMOGLOBIN 30.3 pg (27.0-31.0); MEAN CORPUSCULAR VOLUME 97.8 fL (81.0-99.0); MEAN PLATELET VOLUME 9.9 fL (7.9-10.8); MONOCYTES # (AUTO) 0.4 10^3/uL (0.0-1.0); MONOCYTES % (AUTO) 6.4 %; NEUTROPHILS # (AUTO) 4.7 10^3/uL (1.5-6.6); NEUTROPHILS % (AUTO) 75.1 %; PLT - PLATELET COUNT 150 10^3/uL (130-450); RED CELL DISTRIBUTION WIDTH 14.4 % (12.0-15.0); WHITE BLOOD COUNT 6.3 x10^3/uL (4.8-10.8)
[2021-06-18 06:43] LABS: INR 2.9 (0.8-1.2)
[2021-06-18 06:51] LABS: CALCIUM 8.3 mg/dL (8.5-10.3); CREATININE 1.5 mg/dL (0.4-1.0); MAGNESIUM 2.7 mg/dL (1.7-2.8); POTASSIUM 4.8 mmol/L (3.5-5.0)
--- NOTE | 2021-06-18 10:55 | PHARMACY PROGRESS NOTE ---
- Best Possible Medication History Admit Date and Time: 06/17/21 1721 Processed by: Pharmacy Medication History completed: Yes Secondary Source(s): Pharmacy records, Insurance records As the person ultimately responsible for medication therapy, providers are able to order a medication from an existing home medication list in [facility] via the "Reconcile Routine" prior to Confirmation of that medication by production support developer. Such practice is discouraged except when the physician, in their clinical judgment, deems that a medical need exists for a medication without regard to previous use.
--- NOTE | 2021-06-18 11:12 | Discharge Plan ---
Discharge Plan Problem Reviewed?: Yes Disposition: Home, Self Care Condition: Stable Prescriptions: diltiaZEM CD [Cardizem Cd] 120 mg PO DAILY 30 Days #30 cap Enoxaparin [Lovenox] 105 mg SUBQ Q12H #30 ml Morphine ER [Morphine Sulfate ER] 15 mg PO BID #10 tablet Diet: Regular Activity Restrictions: Activity as Tolerated Health Concerns: You were admitted to the hospital because of confusion due to an unintentional overdose of your morphine. You are also found to have kidney failure due to urinary retention which caused urine to back up into your kidneys which then caused her kidneys not to function well. This was treated with a catheter and you have since been able to urinate. Kidney numbers are back to your baseline. Your mentation has also improved and close to baseline. Plan of Treatment: Please stop taking lisinopril as this can cause high potassium and can affect your kidneys when you get dehydrated or if they get backed up again. Please go back to taking the previous dose of morphine which was 15 mg 3 times a day instead of 30 mg 3 times a day. Please take the Lovenox 105 mg twice a day until you have your INR checked on Tuesday. Once your INR is above 2.5 then you can stop the Lovenox. Please begin taking diltiazem 120 mg daily. This can help control your blood pressure and heart rate. Care Goals: The goal is to manage your pain without side effects that will cause you to be hospitalized. Assessment: Patient and family expressed understanding of the treatment plan. Additional Instructions or Follow Up instructions: Please follow-up with Jessica Mullen or Dr. Carranza within the week. I recommend that you have labs obtained next week to make sure your kidney numbers are stable. No Smoking: If you smoke, Please STOP! Call for help. Follow-up with: Javan Carranza MD [Primary Care Provider] -
--- NOTE | 2021-06-18 11:18 | DISCHARGE SUMMARY ---
Discharge Summary Admit Date: 06/17/21 Discharge Date: 06/19/21 Discharging Provider: Andrés Asif Primary Care Provider: Javan Carranza Code Status: Do Not Attempt Resuscitation Condition at Discharge: Stable Discharge Disposition: 01 Home, Self Care - DIAGNOSES Admission Diagnoses: Altered mental status Acute kidney injury Hydronephrosis Hyperkalemia Small cell lung cancer, right upper lobe Chronic pain History mitral valve replacement with mechanical valve Discharge Diagnoses with Status of Each Condition: Altered mental status - resolved. Acute kidney injury - resolved. Hydronephrosis - improved. Hyperkalemia - resolved. Small cell lung cancer, right upper lobe - stable. Chronic pain - stable. History mitral valve replacement with mechanical valve - stable. - HPI History of Present Illness: This is a 56-year-old female with a past medical history significant for stage I small cell lung cancer, mechanical mitral valve on Coumadin who presents today due to confusion that began this morning. Most of the history is obtained from the patient's daughter as the patient is altered and unable to provide any history. Her daughter tells me that the patient became confused this morning and her speech was mumbled and that the patient was flailing her arms. She states that at baseline she is alert and oriented without any cognitive impairment. She was at her baseline yesterday. 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 Her daughter states that that the patient may have taken extra dose of the morphine as well. She is followed by Jacklyn Mullen of the palliative care service. The patient is now on hospice but has declined any treatment for the small cell lung cancer. She is no longer followed by oncology. Her daughter tells me the patient has been eating and drinking adequately over the past few days. She is also been urinating to her knowledge but she cannot be definitive regarding this. In the emergency department, she underwent labs which showed a potassium of 6.4 and a creatinine of 3.1. She underwent a CT of the head which showed no acute abnormalities. CT of the abdomen pelvis did reveal bilateral hydronephrosis. The patient was straight cathed for over 1 L of urine. She has already had improvement in her mentation since arrival to the emergency department but she is still quite altered and therefore medicine was consulted for admission. I did discuss goals of care with the daughter and she confirms the patient is a DNR. - HOSPITAL COURSE Hospital Course: She was admitted to the floor for altered mental status likely secondary to unintentional drug overdose due to an increased dose of her morphine and I intend to taking a second dose. She is also found to have acute kidney injury which likely contributed to the unintentional overdose. Imaging revealed hydronephrosis and she was straight cathed for 1 L. Fortunately, she was able to urinate on her own and did not need a catheter. Bladder scan on day of discharge revealed a postvoid residual of 60 mL. Her renal function also returned to baseline. Her mental status improved over the following 24 hours and she was discharged after 2 midnights here at our facility. Her INR was subtherapeutic the day of discharge and so she was given Lovenox and discharged on it. She was asked that Lovenox twice daily until she had her INR checked on Tuesday to ensure her INR is greater than 2.5 given to the mechanical mitral valve. We did discontinue her lisinopril as I was concerned she may be at risk for acute kidney injury in the future. We started her on diltiazem instead given she was also mildly tachycardic with heart rates in the 90s. She was asked to decrease the dose of the morphine back to her previous dose and to follow-up with Jacklyn Mullen as well as her primary care physician to discuss future dose increases. - ALLERGIES Allergies/Adverse Reactions: Allergies Allergy/AdvReac Type Severity Reaction Status Date / Time trazodone AdvReac Itching Verified 06/17/21 15:09 - MEDICATIONS Home Medications: Ambulatory Orders Medication Instructions Recorded Confirmed Buspirone HCl 10 mg PO BID 03/11/21 06/17/21 Cyclobenzaprine [Flexeril] 10 mg PO Q8H PRN 03/11/21 06/17/21 Duloxetine HCl [Cymbalta] 60 mg PO BID 03/11/21 06/17/21 Ferrous Sulfate 325 mg PO DAILY 03/11/21 06/17/21 Naloxone HCl [Narcan] 1 spray MILLER ONCE PRN MDD repeat if 03/11/21 06/17/21 no response 2-3min Sumatriptan Succinate [Imitrex] 100 mg PO DAILY PRN 03/11/21 06/17/21 Warfarin [Coumadin] 7.5 mg PO DAILY 03/11/21 06/17/21 Zolpidem Tartrate [Ambien] 10 mg PO QPM PRN 03/11/21 06/17/21 HYDROcodone/ACET 10/325 [[place] 10 1 tab PO Q4H PRN 04/07/21 06/17/21 mg/325 mg] Docusate Sodium 100Mg Capsule 1 cap PO DAILY PRN 05/11/21 06/17/21 [Colace 100Mg Capsule] Magnesium Hydroxide [Milk of 30 ml PO DAILY PRN 05/11/21 06/17/21 Magnesia] Gabapentin [Neurontin] 300 mg PO BID 06/16/21 06/17/21 Sennosides/Docusate Sodium [Senna 4 cap PO TID PRN 06/16/21 06/17/21 Plus 8.6-50 mg Softgel] polyethylene glycoL 3350 [Miralax] 17 gm PO BID PRN 06/16/21 06/17/21 Quetiapine Fumarate [Quetiapine 200 mg PO QPM 06/17/21 06/17/21 Fumarate ER] Rosuvastatin Calcium [Crestor] 10 mg PO QPM 06/17/21 06/17/21 Morphine ER [Morphine Sulfate ER] 15 mg PO BID #10 tablet 06/18/21 Enoxaparin [Lovenox] 105 mg SUBQ Q12H #30 ml 06/19/21 diltiaZEM CD [Cardizem Cd] 120 mg PO DAILY 30 Days #30 cap 06/19/21 - PHYSICAL EXAM AT DISCHARGE General Appearance: positive: No acute distress, Alert Eyes Bilateral: positive: Normal inspection, Conjunctivae nml Neck: positive: Nml inspection Respiratory: positive: No respiratory distress. negative: Wheezes, Rales Cardiovascular: positive: Regular rate & rhythm, Other (Mechanical click noted.). negative: Irregularly irregular, Systolic murmur Abdomen: positive: Non-tender, No distention. negative: Tenderness Skin: positive: Warm, Dry Extremities: positive: No pedal edema Neurologic/Psychiatric: positive: Motor nml. negative: Disoriented to person, Disoriented to place, Disoriented to time Physical Exam Other/Comments: Vital Signs - 24 hr 06/18/21 06/18/21 06/19/21 19:20 20:21 00:18 Temperature 37.0 C 37.0 C Heart Rate 93 Heart Rate [ 93 101 H Brachial] Respiratory 16 16 20 Rate Blood Pressure [Left Brachial artery] Blood Pressure 144/73 H 124/64 [Right Brachial artery] O2 Saturation 98 96 06/19/21 06/19/21 05:11 07:50 Temperature 36.9 C 36.7 C Heart Rate Heart Rate [ 104 H 63 Brachial] Respiratory 18 20 Rate Blood Pressure 141/76 H [Left Brachial artery] Blood Pressure 125/66 [Right Brachial artery] O2 Saturation 97 99 Oxygen O2 Source Room air Oxygen Flow Rate 6 - LABS Result Diagrams: 06/19/21 06:59 06/19/21 06:59 - DIAGNOSTIC IMAGING Diagnostic Imaging Results: Final report reviewed - FOLLOW UP Follow Up: She was asked to follow-up with her primary care physician in 1 week and to have her INR checked in 3 days. - TIME SPENT Time Spent in Discharge (Minutes): 34
--- NOTE | 2021-06-18 12:35 | PROVIDER PROGRESS NOTE ---
Subjective - Prog Note Date Prog Note Date: 06/18/21 - Subjective Subjective: Feels improved but not quite back to baseline. Daughter is present at bedside and feels her mom is definitely improved compared to yesterday but still intermittently confused at times and not back to her baseline. The patient was able to ambulate but felt quite weak and had to stop multiple times. Current Medications - Current Medications Current Medications: Active Medications Acetaminophen (Acetaminophen 325 Mg Tablet) 650 mg PO Q4HR PRN PRN Reason: Pain 1 to 4 Last Admin: 06/18/21 05:29 Dose: 650 mg Documented by: Albuterol (Albuterol Neb 2.5 Mg/3 Ml) 2.5 mg INH RTQ4H PRN PRN Reason: Wheezing Last Admin: 06/18/21 10:55 Dose: 2.5 mg Documented by: Buspirone HCl (Buspirone 5 Mg Tablet) 10 mg PO BID CUONG Duloxetine HCl (Duloxetine 30 Mg Capsule) 60 mg PO BID CUONG Ferrous Sulfate (Ferrous Sulfate 325 Mg Tablet) 325 mg PO DAILYWM [facility], [facility] Ondansetron HCl (Ondansetron Odt 4 Mg Tablet) 4 mg TL Q6HR PRN PRN Reason: Nausea / Vomiting Quetiapine Fumarate (Quetiapine 100 Mg Tablet) 200 mg PO QPM CUONG Sodium Chloride (Sodium Chloride Flush 0.9% 10 Ml Syringe) 10 ml IVP PRN PRN PRN Reason: NEEDED PER PROVIDER ORDERS Sodium Chloride (Sodium Chloride Flush 0.9% 10 Ml Syringe) 10 ml IVP 0100,0900,1700 CUONG Last Admin: 06/17/21 23:19 Dose: Not Given Documented by: Warfarin Sodium (Warfarin 5 Mg Tablet) 7.5 mg PO QDWARFARIN CUONG Buspirone HCl 10 mg PO BID 03/11/21 Cyclobenzaprine [Flexeril] 10 mg PO Q8H PRN 03/11/21 Duloxetine HCl [Cymbalta] 60 mg PO BID 03/11/21 Ferrous Sulfate 325 mg PO DAILY 03/11/21 Naloxone HCl [Narcan] 1 spray MILLER ONCE PRN MDD repeat if no response 2-3min 03/11/21 Sumatriptan Succinate [Imitrex] 100 mg PO DAILY PRN 03/11/21 Warfarin [Coumadin] 7.5 mg PO DAILY 03/11/21 Zolpidem Tartrate [Ambien] 10 mg PO QPM PRN 03/11/21 HYDROcodone/ACET 10/325 [[place] 10 mg/325 mg] 1 tab PO Q4H PRN 04/07/21 Docusate Sodium 100Mg Capsule [Colace 100Mg Capsule] 1 cap PO DAILY PRN 05/11/21 Magnesium Hydroxide [Milk of Magnesia] 30 ml PO DAILY PRN 05/11/21 Gabapentin [Neurontin] 300 mg PO BID 06/16/21 Sennosides/Docusate Sodium [Senna Plus 8.6-50 mg Softgel] 4 cap PO TID PRN 06/16/21 polyethylene glycoL 3350 [Miralax] 17 gm PO BID PRN 06/16/21 Quetiapine Fumarate [Quetiapine Fumarate ER] 200 mg PO QPM 06/17/21 Rosuvastatin Calcium [Crestor] 10 mg PO QPM 06/17/21 Objective - Vital Signs/Intake & Output Reviewed Vital Signs: Yes Vital Signs: Vital Signs x48h Temp Pulse Pulse Resp BP Pulse Ox 06/18/21 11:36 101 H 146/85 H 06/18/21 10:55 96 18 06/18/21 07:35 36.7 C 94 18 119/53 L 93 06/18/21 05:26 36.7 C 102 H 18 124/67 90 L Intake & Output: Intake & Output 06/15/21 06/16/21 06/17/21 06/18/21 23:59 23:59 23:59 23:59 Intake Total 1160 1081.667 Output Total 550 450 Balance 610 631.667 - Objective General Appearance: positive: No acute distress, Alert Eyes Bilateral: positive: Normal inspection, Conjunctivae nml ENT: positive: ENT inspection nml Neck: positive: Nml inspection Respiratory: positive: No respiratory distress. negative: Wheezes, Rales Cardiovascular: positive: Regular rate & rhythm. negative: Tachycardia Abdomen: positive: Non-tender, No distention. negative: Tenderness Skin: positive: Warm, Dry Extremities: positive: No pedal edema Neurologic/Psychiatric: positive: Motor nml, Other (She is alert and oriented. No focal deficits on exam. Her speech is still somewhat tangential at times. It takes her a few seconds to answer some questions.). negative: Disoriented to person, Disoriented to place, Disoriented to time - Lab Results Fish Bones: 06/18/21 06:18 06/18/21 06:18 Other Labs: Lab Results x24hrs 06/18/21 06/18/21 06/18/21 Range/Units 06:18 06:18 06:18 WBC 6.3 (4.8-10.8) x10^3/uL RBC 3.20 L (4.20-5.40) 10^6/uL Hgb 9.7 L (12.0-16.0) g/dL Hct 31.3 L (37.0-47.0) % MCV 97.8 (81.0-99.0) fL MCH 30.3 (27.0-31.0) pg MCHC 31.0 L (32.0-36.0) g/dL RDW 14.4 (12.0-15.0) % Plt Count 150 (130-450) 10^3/uL MPV 9.9 (7.9-10.8) fL Neut # (Auto) 4.7 (1.5-6.6) 10^3/uL Lymph # (Auto) 1.0 L (1.5-3.5) 10^3/uL [place] # (Auto) 0.4 (0.0-1.0) 10^3/uL Eos # (Auto) 0.1 (0.0-0.7) 10^3/uL Baso # (Auto) 0.0 (0.0-0.1) 10^3/uL Absolute Nucleated RBC 0.00 x10^3/uL Nucleated RBC % 0.0 /100WBC PT 32.0 H (9.9-12.6) secs INR 2.9 H (0.8-1.2) Sodium 138 (135-145) mmol/L Potassium 4.8 (3.5-5.0) mmol/L Chloride 102 (101-111) mmol/L Carbon Dioxide 27 (21-32) mmol/L Anion Gap 9.0 (6-13) BUN 42 H (6-20) mg/dL Creatinine 1.5 H (0.4-1.0) mg/dL Estimated GFR (MDRD) 36 L (>89) Glucose 104 H (70-100) mg/dL Lactic Acid (0.5-2.2) mmol/L Calcium 8.3 L (8.5-10.3) mg/dL Magnesium 2.7 (1.7-2.8) mg/dL Total Bilirubin (0.2-1.0) mg/dL AST (10-42) IU/L ALT (10-60) IU/L Alkaline Phosphatase (42-121) IU/L Total Protein (6.7-8.2) g/dL Albumin (3.2-5.5) g/dL Globulin (2.1-4.2) g/dL Albumin/Globulin Ratio (1.0-2.2) Urine Color Urine Clarity (CLEAR) Urine pH (5.0-7.5) PH Ur Specific [place] (1.002-1.030) Urine Protein (NEGATIVE) mg/dL Urine Glucose (UA) (NEGATIVE) mg/dL Urine Ketones (NEGATIVE) mg/dL Urine Occult Blood (NEGATIVE) Urine Nitrite (NEGATIVE) Urine Bilirubin (NEGATIVE) Urine Urobilinogen (NORMAL) E.U./dL Ur Leukocyte Esterase (NEGATIVE) Urine RBC (0-5) /HPF Urine WBC (0-5) /HPF Ur Squamous Epith Cells (<= Few) Urine Bacteria (None Seen) /HPF Urine Culture Comments Nasal Adenovirus (PCR) Nasal B. parapertussis DNA (PCR) Nasal Coronavir 229E PCR Nasal Coronavir HKU1 PCR Nasal Coronavir NL63 PCR Nasal Coronavir OC43 PCR Nasal Enterovir/Rhinovir PCR Nasal Influenza B PCR Nasal Influenza A PCR Nasal Parainfluen 1 PCR Nasal Parainfluen 2 PCR Nasal Parainfluen 3 PCR Nasal Parainfluen 4 PCR Nasal RSV (PCR) Nasal B.pertussis DNA PCR Nasal C.pneumoniae (PCR) [place] Human Metapneumo PCR Nasal M.pneumoniae (PCR) Nasal SARS-CoV-2 (PCR) 06/17/21 06/17/21 06/17/21 Range/Units 20:49 17:30 16:48 WBC (4.8-10.8) x10^3/uL RBC (4.20-5.40) 10^6/uL Hgb (12.0-16.0) g/dL Hct (37.0-47.0) % MCV (81.0-99.0) fL MCH (27.0-31.0) pg MCHC (32.0-36.0) g/dL RDW (12.0-15.0) % Plt Count (130-450) 10^3/uL MPV (7.9-10.8) fL Neut # (Auto) (1.5-6.6) 10^3/uL Lymph # (Auto) (1.5-3.5) 10^3/uL [place] # (Auto) (0.0-1.0) 10^3/uL Eos # (Auto) (0.0-0.7) 10^3/uL Baso # (Auto) (0.0-0.1) 10^3/uL Absolute Nucleated RBC x10^3/uL Nucleated RBC % /100WBC PT (9.9-12.6) secs INR (0.8-1.2) Sodium 133 L 131 L (135-145) mmol/L Potassium 5.0 5.4 H (3.5-5.0) mmol/L Chloride 99 L 97 L (101-111) mmol/L Carbon Dioxide 26 25 (21-32) mmol/L Anion Gap 8.0 9.0 (6-13) BUN 52 H 60 H (6-20) mg/dL Creatinine 2.3 H 2.9 H (0.4-1.0) mg/dL Estimated GFR (MDRD) 22 L 17 L (>89) Glucose 127 H 65 L (70-100) mg/dL Lactic Acid (0.5-2.2) mmol/L Calcium 8.0 L 8.4 L (8.5-10.3) mg/dL Magnesium (1.7-2.8) mg/dL Total Bilirubin (0.2-1.0) mg/dL AST (10-42) IU/L ALT (10-60) IU/L Alkaline Phosphatase (42-121) IU/L Total Protein (6.7-8.2) g/dL Albumin (3.2-5.5) g/dL Globulin (2.1-4.2) g/dL Albumin/Globulin Ratio (1.0-2.2) Urine Color Urine Clarity (CLEAR) Urine pH (5.0-7.5) PH Ur Specific [place] (1.002-1.030) Urine Protein (NEGATIVE) mg/dL Urine Glucose (UA) (NEGATIVE) mg/dL Urine Ketones (NEGATIVE) mg/dL Urine Occult Blood (NEGATIVE) Urine Nitrite (NEGATIVE) Urine Bilirubin (NEGATIVE) Urine Urobilinogen (NORMAL) E.U./dL Ur Leukocyte Esterase (NEGATIVE) Urine RBC (0-5) /HPF Urine WBC (0-5) /HPF Ur Squamous Epith Cells (<= Few) Urine Bacteria (None Seen) /HPF Urine Culture Comments Nasal Adenovirus (PCR) NOT DETECTED Nasal B. parapertussis DNA (PCR) NOT DETECTED Nasal Coronavir 229E PCR NOT DETECTED Nasal Coronavir HKU1 PCR NOT DETECTED Nasal Coronavir NL63 PCR NOT DETECTED Nasal Coronavir OC43 PCR NOT DETECTED Nasal Enterovir/Rhinovir PCR NOT DETECTED Nasal Influenza B PCR NOT DETECTED Nasal Influenza A PCR NOT DETECTED Nasal Parainfluen 1 PCR NOT DETECTED Nasal Parainfluen 2 PCR NOT DETECTED Nasal Parainfluen 3 PCR NOT DETECTED Nasal Parainfluen 4 PCR NOT DETECTED Nasal RSV (PCR) NOT DETECTED Nasal B.pertussis DNA PCR NOT DETECTED Nasal C.pneumoniae (PCR) NOT DETECTED [place] Human Metapneumo PCR NOT DETECTED Nasal M.pneumoniae (PCR) NOT DETECTED Nasal SARS-CoV-2 (PCR) NOT DETECTED 06/17/21 06/17/21 06/17/21 Range/Units 16:28 15:09 15:09 WBC (4.8-10.8) x10^3/uL RBC (4.20-5.40) 10^6/uL Hgb (12.0-16.0) g/dL Hct (37.0-47.0) % MCV (81.0-99.0) fL MCH (27.0-31.0) pg MCHC (32.0-36.0) g/dL RDW (12.0-15.0) % Plt Count (130-450) 10^3/uL MPV (7.9-10.8) fL Neut # (Auto) (1.5-6.6) 10^3/uL Lymph # (Auto) (1.5-3.5) 10^3/uL [place] # (Auto) (0.0-1.0) 10^3/uL Eos # (Auto) (0.0-0.7) 10^3/uL Baso # (Auto) (0.0-0.1) 10^3/uL Absolute Nucleated RBC x10^3/uL Nucleated RBC % /100WBC PT (9.9-12.6) secs INR (0.8-1.2) Sodium 128 L (135-145) mmol/L Potassium 6.3 H* (3.5-5.0) mmol/L Chloride 95 L (101-111) mmol/L Carbon Dioxide 24 (21-32) mmol/L Anion Gap 9.0 (6-13) BUN 63 H (6-20) mg/dL Creatinine 3.2 H (0.4-1.0) mg/dL Estimated GFR (MDRD) 15 L (>89) Glucose 117 H (70-100) mg/dL Lactic Acid 1.0 (0.5-2.2) mmol/L Calcium 8.5 (8.5-10.3) mg/dL Magnesium (1.7-2.8) mg/dL Total Bilirubin 0.5 (0.2-1.0) mg/dL AST 33 (10-42) IU/L ALT 20 (10-60) IU/L Alkaline Phosphatase 55 (42-121) IU/L Total Protein 7.4 (6.7-8.2) g/dL Albumin 4.1 (3.2-5.5) g/dL Globulin 3.3 (2.1-4.2) g/dL Albumin/Globulin Ratio 1.2 (1.0-2.2) Urine Color YELLOW Urine Clarity HAZY (CLEAR) Urine pH 6.0 (5.0-7.5) PH Ur Specific [place] 1.020 (1.002-1.030) Urine Protein NEGATIVE (NEGATIVE) mg/dL Urine Glucose (UA) NEGATIVE (NEGATIVE) mg/dL Urine Ketones NEGATIVE (NEGATIVE) mg/dL Urine Occult Blood TRACE-INTA (NEGATIVE) Urine Nitrite POSITIVE H (NEGATIVE) Urine Bilirubin NEGATIVE (NEGATIVE) Urine Urobilinogen 0.2 (NORMAL) (NORMAL) E.U./dL Ur Leukocyte Esterase NEGATIVE (NEGATIVE) Urine RBC 0-5 (0-5) /HPF Urine WBC 0-3 (0-5) /HPF Ur Squamous Epith Cells RARE Squamous (<= Few) Urine Bacteria Many H (None Seen) /HPF Urine Culture Comments INDICATED Nasal Adenovirus (PCR) Nasal B. parapertussis DNA (PCR) Nasal Coronavir 229E PCR Nasal Coronavir HKU1 PCR Nasal Coronavir NL63 PCR Nasal Coronavir OC43 PCR Nasal Enterovir/Rhinovir PCR Nasal Influenza B PCR Nasal Influenza A PCR Nasal Parainfluen 1 PCR Nasal Parainfluen 2 PCR Nasal Parainfluen 3 PCR Nasal Parainfluen 4 PCR Nasal RSV (PCR) Nasal B.pertussis DNA PCR Nasal C.pneumoniae (PCR) [place] Human Metapneumo PCR Nasal M.pneumoniae (PCR) Nasal SARS-CoV-2 (PCR) 06/17/21 06/17/21 Range/Units 15:09 15:05 WBC 8.2 (4.8-10.8) x10^3/uL RBC 3.47 L (4.20-5.40) 10^6/uL Hgb 10.6 L (12.0-16.0) g/dL Hct 34.5 L (37.0-47.0) % MCV 99.4 H (81.0-99.0) fL MCH 30.5 (27.0-31.0) pg MCHC 30.7 L (32.0-36.0) g/dL RDW 14.5 (12.0-15.0) % Plt Count 188 (130-450) 10^3/uL MPV 10.0 (7.9-10.8) fL Neut # (Auto) 6.5 (1.5-6.6) 10^3/uL Lymph # (Auto) 1.0 L (1.5-3.5) 10^3/uL [place] # (Auto) 0.5 (0.0-1.0) 10^3/uL Eos # (Auto) 0.1 (0.0-0.7) 10^3/uL Baso # (Auto) 0.1 (0.0-0.1) 10^3/uL Absolute Nucleated RBC 0.00 x10^3/uL Nucleated RBC % 0.0 /100WBC PT 36.9 H (9.9-12.6) secs INR 3.3 H (0.8-1.2) Sodium (135-145) mmol/L Potassium (3.5-5.0) mmol/L Chloride (101-111) mmol/L Carbon Dioxide (21-32) mmol/L Anion Gap (6-13) BUN (6-20) mg/dL Creatinine (0.4-1.0) mg/dL Estimated GFR (MDRD) (>89) Glucose (70-100) mg/dL Lactic Acid (0.5-2.2) mmol/L Calcium (8.5-10.3) mg/dL Magnesium (1.7-2.8) mg/dL Total Bilirubin (0.2-1.0) mg/dL AST (10-42) IU/L ALT (10-60) IU/L Alkaline Phosphatase (42-121) IU/L Total Protein (6.7-8.2) g/dL Albumin (3.2-5.5) g/dL Globulin (2.1-4.2) g/dL Albumin/Globulin Ratio (1.0-2.2) Urine Color Urine Clarity (CLEAR) Urine pH (5.0-7.5) PH Ur Specific [place] (1.002-1.030) Urine Protein (NEGATIVE) mg/dL Urine Glucose (UA) (NEGATIVE) mg/dL Urine Ketones (NEGATIVE) mg/dL Urine Occult Blood (NEGATIVE) Urine Nitrite (NEGATIVE) Urine Bilirubin (NEGATIVE) Urine Urobilinogen (NORMAL) E.U./dL Ur Leukocyte Esterase (NEGATIVE) Urine RBC (0-5) /HPF Urine WBC (0-5) /HPF Ur Squamous Epith Cells (<= Few) Urine Bacteria (None Seen) /HPF Urine Culture Comments Nasal Adenovirus (PCR) Nasal B. parapertussis DNA (PCR) Nasal Coronavir 229E PCR Nasal Coronavir HKU1 PCR Nasal Coronavir NL63 PCR Nasal Coronavir OC43 PCR Nasal Enterovir/Rhinovir PCR Nasal Influenza B PCR Nasal Influenza A PCR Nasal Parainfluen 1 PCR Nasal Parainfluen 2 PCR Nasal Parainfluen 3 PCR Nasal Parainfluen 4 PCR Nasal RSV (PCR) Nasal B.pertussis DNA PCR Nasal C.pneumoniae (PCR) [place] Human Metapneumo PCR Nasal M.pneumoniae (PCR) Nasal SARS-CoV-2 (PCR) Assessment/Plan - Problem List (1) Altered mental status Impression: This was likely secondary to unintentional drug overdose from her morphine in someone who had acute kidney injury and recent increase in the dose of her morphine. She is most definitely improved today but still not back to baseline. We will keep her 1 more night and I suspect she should be able to go home tomorrow. We will send her back home on her reduced dose of morphine which is 15 mg 3 times daily instead of 30 mg 3 times daily. We will continue gabapentin at her current dose which is 300 mg twice daily. (2) ADEOLA (acute kidney injury) Impression: This is now resolved. Her renal function is back to baseline. This was likely secondary to the hydronephrosis due to urinary retention. I have discontinued her lisinopril and have asked her to do so on discharge given her blood pressure is well controlled. (3) Hydronephrosis Impression: This is likely secondary to urinary retention which may be secondary to her home medications. She was straight cathed for 1 L and since then has been able to urinate although her postvoid residual is still about 300 mL. Her renal function is back to baseline so I suspect her hydronephrosis is improving. We will continue to perform bladder scans every 4 hours and monitor her urine output but as long as she is able to urinate then we will discharge her home without a Montez catheter and ask you to have repeat labs next week to ensure her renal function is stable. (4) Small cell lung cancer, right upper lobe Impression: She has stage I small cell lung cancer. This is stable. She has declined therapy and no longer follows with oncology. (5) Chronic pain Impression: We will reduce her home dose of morphine to 50 mg 3 times daily instead of 30 mg 3 times daily. Continue current dose of gabapentin. She will continue to follow-up with palliative care. (6) H/O mitral valve replacement with mechanical valve Impression: Stable. Her INR is therapeutic and will continue Coumadin. (7) Hyperkalemia Impression: Secondary to the acute kidney injury and has resolved.
[2021-06-18] MEDS ORDERED: WARFARIN 5 MG TABLET PO SCH ×2 (14:00)
[2021-06-18] MEDS: MORPHINE ER 15 MG TABLET PO SCH ×2 (14:20→20:37)
[2021-06-18] MEDS: busPIRone 5 MG TABLET PO SCH ×2 (14:20→20:37)
[2021-06-18] MEDS: DULoxetine 30 MG CAPSULE PO SCH ×2 (15:43→20:37)
[2021-06-18] MEDS: FERROUS SULFATE 325 MG TABLET PO SCH (15:43)
[2021-06-18] MEDS: SODIUM CHLORIDE FLUSH 0.9% 10 ML SYRINGE IVP SCH ×2 (15:45→16:08)
[2021-06-18] MEDS: GABAPENTIN 300 MG CAPSULE PO SCH (20:37)
[2021-06-18] MEDS ORDERED: QUEtiapine 100 MG TABLET PO SCH (21:00)
[2021-06-19] MEDS: SODIUM CHLORIDE FLUSH 0.9% 10 ML SYRINGE IVP SCH ×2 (00:04→08:35)
[2021-06-19 07:16] LABS: CALCIUM 8.6 mg/dL (8.5-10.3); CREATININE 1.1 mg/dL (0.4-1.0); POTASSIUM 4.1 mmol/L (3.5-5.0)
[2021-06-19 07:19] LABS: INR 1.8 (0.8-1.2); PT - PROTHROMBIN TIME 20.5 secs (9.9-12.6)
[2021-06-19 07:32] LABS: BASOPHILS # (AUTO) 0.1 10^3/uL (0.0-0.1); BASOPHILS % (AUTO) 0.8 %; EOSINOPHILS # (AUTO) 0.2 10^3/uL (0.0-0.7); EOSINOPHILS % (AUTO) 2.5 %; HCT - HEMATOCRIT 32.7 % (37.0-47.0); HGB - HEMOGLOBIN 10.4 g/dL (12.0-16.0); LYMPHOCYTES # (AUTO) 0.9 10^3/uL (1.5-3.5); LYMPHOCYTES % (AUTO) 14.5 %; MEAN CORPUSCULAR HEMOGLOBIN 30.5 pg (27.0-31.0); MEAN CORPUSCULAR HGB CONC 31.8 g/dL (32.0-36.0); MEAN CORPUSCULAR VOLUME 95.9 fL (81.0-99.0); MEAN PLATELET VOLUME 10.1 fL (7.9-10.8); MONOCYTES # (AUTO) 0.5 10^3/uL (0.0-1.0); MONOCYTES % (AUTO) 7.1 %; NEUTROPHILS # (AUTO) 4.8 10^3/uL (1.5-6.6); NEUTROPHILS % (AUTO) 74.8 %; PLT - PLATELET COUNT 167 10^3/uL (130-450); RED BLOOD COUNT 3.41 10^6/uL (4.20-5.40); RED CELL DISTRIBUTION WIDTH 14.5 % (12.0-15.0); WHITE BLOOD COUNT 6.5 x10^3/uL (4.8-10.8)
[2021-06-19] MEDS: busPIRone 5 MG TABLET PO SCH (08:32)
[2021-06-19] MEDS: DULoxetine 30 MG CAPSULE PO SCH (08:32)
[2021-06-19] MEDS: FERROUS SULFATE 325 MG TABLET PO SCH (08:33)
[2021-06-19] MEDS: MORPHINE ER 15 MG TABLET PO SCH (08:33)
[2021-06-19] MEDS: GABAPENTIN 300 MG CAPSULE PO SCH (08:33)
[2021-06-19] MEDS ORDERED: ENOXAPARIN 120 MG/0.8 ML SYRINGE SUBQ STA (08:49)
[2021-06-19] MEDS ORDERED: diltiaZEM CD 120 MG CAPSULE PO SCH (09:00)
[2021-06-19 09:56] VITALS: BP 125/66
== END 2021-06-19 11:10 | disposition home or self-care (01) ==
LOC: EDUNIT# → ED 14:51 → MS2 17:21
PROVIDERS: ADMIT Internal Medicine; ATTEND Internal Medicine
DX: T40.2X1A Poisoning by other opioids, accidental (unintentional), initial encounter (principal); R41.82 Altered mental status, unspecified; N17.9 Acute kidney failure, unspecified; N13.30 Unspecified hydronephrosis; E87.5 Hyperkalemia; C34.11 Malignant neoplasm of upper lobe, right bronchus or lung; G89.29 Other chronic pain; G62.9 Polyneuropathy, unspecified; M54.9 Dorsalgia, unspecified; I13.0 Hypertensive heart and chronic kidney disease with heart failure and stage 1 through stage 4 chronic kidney disease, or unspecified chronic kidney disease; N18.9 Chronic kidney disease, unspecified; I50.9 Heart failure, unspecified; J45.909 Unspecified asthma, uncomplicated; G40.909 Epilepsy, unspecified, not intractable, without status epilepticus; F32.9 Major depressive disorder, single episode, unspecified; F41.9 Anxiety disorder, unspecified; F17.210 Nicotine dependence, cigarettes, uncomplicated; Z20.822 Contact with and (suspected) exposure to COVID-19; Z79.01 Long term (current) use of anticoagulants; Z79.899 Other long term (current) drug therapy; R33.8 Other retention of urine; Z95.2 Presence of prosthetic heart valve
CPT/HCPCS: 36415; 51701; 70450; 71045; 71250; 74176; 80048; 80053; 81001; 83605; 83735; 85025; 85610; 87040; 87077; 87086; 87181; 87631; 93005; 94640; 96361; 96372; 96374; 96375; 96376; 99285; A9270; G0378; J1650; J1815; J7120; 0202U

== ENCOUNTER 2021-06-22 12:41 | Outpatient (CLI) | payer MEDICARE ==
[2021-06-22 15:31] LABS: INR 1.6 (0.8-1.2); PT - PROTHROMBIN TIME 18.2 secs (9.9-12.6)
== END 2021-06-22 12:42 | disposition home or self-care (01) ==
LOC: LAB.S 12:41
PROVIDERS: ATTEND Internal Medicine
DX: Z79.01 Long term (current) use of anticoagulants (principal); Z95.2 Presence of prosthetic heart valve
CPT/HCPCS: 36415; 85610

== ENCOUNTER 2021-06-23 13:45 | Outpatient (CLI) | payer MEDICARE ==
--- NOTE | 2021-06-23 20:50 | CONSULTATION NOTE ---
Palliative Care Follow Up - Referral Referring Provider: Dr. Javan Carranza Time of Visit: [id number] Referral setting: Home Referral Reason: s/p hospitalization/Pain of neoplastic origin/Neuropathy - Information Sources Records reviewed: Previous records reviewed History/Review of Systems obtained from: Patient, Family (daughter/DPKURT Huaty present) Exam limitations: No limitations - History of Present Illness Update Brief HPI Update: This is a nael 56-year-old female who was seen and evaluated today in her home for follow-up status post hospitalization due to altered mental status, small cell lung cancer, pain of neoplastic origin and neuropathy with her daughter/DPKURT Huaty present. Provider wore N95 mask. The patient was diagnosed with small cell lung cancer on 03/19/2021. She has elected to not move forward with interventions and focus on her quality of life. On 06/17 she presented with an altered mental status with boiling arms after a potential dose extra dose of her MS Contin was taken. The patient's daughter after contacting palliative care requested EMS and the patient presented to the emergency department where her initial lab work indicated a potassium level of 6.4 and creatinine 3.1. She had a straight cath of over 1 L of urine removed and a head CT that showed no acute abnormalities. She was admitted to the floor and her mental status gradually improved over 24 hours. She was found to have acute kidney injury which likely contributed to the unintentional additional dos e of MS Contin and imaging revealed hydronephrosis. She has been able to void independently on her own and there was no need for Montez catheter. During hospitalization her lisinopril was discontinued and it was recommended that she begin diltiazem as she was mildly tachycardic. Daughter and patient report that this medication was not at the pharmacy and had not been begun. The patient denies cardiac complaints and therefore will monitor at this time versus initiating this medication which the patient is in agreement with. Due to her altered mental status and ADEOLA her MS Contin was decreased upon discharge from the hospital and patient is Presently taking MS Contin 15 mg in the morning, 15 mg in the afternoon, and 30 mg in the evening. On 06/17 she was to began 30 mg in the morning, 30 mg in the afternoon and 30 mg in the evening of her MS Contin. This was not initiated due to her altered mental state. She also has gradually titrated her gabapentin up to 300 mg twice daily and this has been effective for her neuropathy. She also reports that she is sleeping better. Since returning home her daughter and she have been placing her medications in a Mediset and this is providing ease and less time figuring out which medications she has taken or not. In doing this it came to the daughters awareness of the patient has been taking 30 mg of Flexeril at bedtime. This is something that she has been doing "for years. "However, the patient is reporting that she is feeling more relaxed in the evening and less tense. She is no longer having a restless leg. Therefore we will do a trial dose reduction of Flexeril gradually given the patient's long length of use. With the patient's present dose of MS Contin at 15 mg in the morning, 15 mg in the afternoon and 30 mg in the evening the patient has had an overall improvement of her pain and reports that she is using her hydrocodone/acetaminophen 2-3 times per day versus the approximate 4-5 that she was administering prior to the dose increase in hospitalization. This reduction and breakthrough pain medication may be due to increasing gabapentin for symptom management. Patient is seen well groomed in the living room, articulate and no evidence of distress. Past Medical History: Patient has a past medical history of congestive heart failure, hypertension, arrhythmia, aorta and mitral valve replacement with mechanical valves on Coumadin therapy, seizure disorder no longer on Keppra without seizure activity for years, asthma, sleep apnea, CVA, depression, anxiety, chronic back pain, MRSA, osteomyelitis of the skull, brain surgery for benign tumors in 1989 and for plate replacement in 2018, tonsil and adenoidectomy, tobacco use. Social History - Living Situation Living arrangement: At home Living Situation: With family (daughter(Craolyn), BRYNN and grandson) Support System: Patient was born in [place] and then at the age of 1 her family relocated to [facility]. Patient was . She and her spouse have 2 daughters. One daughter resides in [place] ([facility]) and the other resides on [facility]. The patient lives with her daughter, Carolyn who is a elementary school social worker and the patient's [facility] with contact number [phone]. The patient came to live with her daughter and her family approximately 3 years ago. She no longer drives. Dog, Dinesh in the home. Carolyn is looking into potentially having a new home be purchased that would allow the patient to be on a ground level room vs upstairs. Medications/Allergies - Medications Home Medications: Ambulatory Orders Medication Instructions Recorded Confirmed Buspirone HCl 10 mg PO BID 03/11/21 06/17/21 Cyclobenzaprine [Flexeril] 10 mg PO Q8H PRN 03/11/21 06/17/21 Duloxetine HCl [Cymbalta] 60 mg PO BID 03/11/21 06/17/21 Ferrous Sulfate 325 mg PO DAILY 03/11/21 06/17/21 Naloxone HCl [Narcan] 1 spray MILLER ONCE PRN MDD repeat if 03/11/21 06/17/21 no response 2-3min Sumatriptan Succinate [Imitrex] 100 mg PO DAILY PRN 03/11/21 06/17/21 Warfarin [Coumadin] 7.5 mg PO DAILY 03/11/21 06/17/21 Zolpidem Tartrate [Ambien] 10 mg PO QPM PRN 03/11/21 06/17/21 HYDROcodone/ACET 10/325 [[place] 10 1 tab PO Q4H PRN 04/07/21 06/17/21 mg/325 mg] Docusate Sodium 100Mg Capsule 1 cap PO DAILY PRN 05/11/21 06/17/21 [Colace 100Mg Capsule] Magnesium Hydroxide [Milk of 30 ml PO DAILY PRN 05/11/21 06/17/21 Magnesia] Gabapentin [Neurontin] 300 mg PO BID 06/16/21 06/17/21 Sennosides/Docusate Sodium [Senna 4 cap PO TID PRN 06/16/21 06/17/21 Plus 8.6-50 mg Softgel] polyethylene glycoL 3350 [Miralax] 17 gm PO BID PRN 06/16/21 06/17/21 Quetiapine Fumarate [Quetiapine 200 mg PO QPM 06/17/21 06/17/21 Fumarate ER] fentaNYL 12 MCG PATCH [Duragesic 1 patch TP Q72H 06/23/21 06/23/21 12mcg patch] - Allergies Allergies/Adverse Reactions: Allergies Allergy/AdvReac Type Severity Reaction Status Date / Time trazodone AdvReac Itching Verified 06/17/21 15:09 Review of Systems - Constitutional Constitutional: reports: Weight gain. denies: Fever, Poor appetite - Ears, Nose & Throat Ears, Nose & Throat: denies: Dentures - Cardiovascular Cardiovascular: reports: Decr. exercise tolerance. denies: Palpitations, Chest pain, Edema - Respiratory Respiratory: reports: SOB with exertion, Other (tobacco abuse) - Gastrointestinal Gastrointestinal: reports: Early satiety (intermittent), Good appetite. denies: Constipation (controlled with daily, soft bowel movement), Vomiting - Genitourinary Genitourinary: denies: Dysuria - Musculoskeletal Musculoskeletal: reports: Other (Right scapula pain that radiates down right arm). denies: Assistive devices, Transfer issues - Neurological Neurological: reports: Numbness (RUE, improved with gabapentin), Other (Word finding difficulties, intermittent). denies: Headache (history of migraines typically twice per month---none recently), Dizziness - Psychiatric Psychiatric: reports: Depression, Anxiety - Hematologic/Lymphatic Hematologic/Lymph: reports: Recurrent infections (UTIs, previously on UTI prophylaxis therapy that was discontinued with acute renal failure 3 years ago per patient and daughter) - All Other Systems All Other Systems: reports: Reviewed and negative Physical Exam - Vital Signs Temperature: 36.7 C Pulse Rate: 91 O2 Saturation: 96 (on RA) Blood Pressure: 101/43 - Physical Exam General Appearance: positive: No acute distress, Alert, Other (overweight, well groomed) Eyes Bilateral: positive: Normal inspection ENT: positive: No signs of dehydration Neck: positive: Trachea midline Cardiovascular: positive: Regular rate & rhythm, No murmur, Other (+audible prostetic valve clicks) Respiratory: positive: No respiratory distress, Breath sounds nml. negative: Rales Abdomen: positive: Non-tender, Soft, Nml bowel sounds, Other (+round) Skin: positive: No symptoms Extremities: positive: No pedal edema Neurologic/Psychiatric: positive: Oriented x3, Mood/affect nml Palliative Care - POLST Patient has POLST: Yes POLST Status: DNR, Selective Treatment Pain: Comment (Pain stable with decrease breakthrough pain medication but given recent events would like to transition long acting opioid from MS Contin to Fentanyl. Gabapentin has reduced neuropathy symptoms.) - Palliative Care Discussion: Patient unfortunately through a series of events developed hydronephrosis due to acute kidney injury and urinary retention that subsequently resolved. She unintentionally took an overdose of her MS Contin. Given these recent events both the patient and her daughter/DPOA perceive this most recent hospitalization "as a trial run" and therefore wish to solidify discussions at they have had regarding advanced care planning. The patient has returned to her baseline mentation as well as her capabilities with voiding. Will want to obtain a BMP to reevaluate her electrolytes and renal function next Tuesday with her INR check at the [facility]. Given the recent events leading to her hospitalization would prefer to transition to a topical patch for pain management versus oral form Despite improvement with a Mediset for reminders. The patient finds that this would be more of ease and provide peace of mind and therefore will make that transition to 12 mcg patch changed every 72 hours. The patient's daughters expressed that once the patient dies they would like to see about retrieving the heart valve and each daughter having a piece as this is symbolic of the patient's giving and loving heart. This will be something that will need to be looked into if it can be performed. Reviewed POLST today and patient has elected to move forward as DN AR with selective interventions weighing benefits versus burdens but does not wish to have heroic measures such as intubation or resuscitation and does not wish to have artificial nutrition by tube. The patient does express that she is interested in exploring with dignity and will continue to tease this out moving forward. Results - Lab Results Lab results reviewed: Yes Lab and Imaging Results: from hospitalization 06/17-06/19/21 Impression and Recommendations - Palliative Care Impression: This is a nael 56-year-old female with stage I small cell lung cancer in the setting of long standing tobacco abuse, recent altered mental status due to acute kidney injury with urinary retention that has resolved, pain of neoplastic origin and neuropathy to her right upper extremity. Given recent events will transition from MS Contin to fentanyl patch. Gabapentin has provided improvement with pain management. Patient has elected to move forward with CODE STATUS as DN AR/DN I and will weigh benefits versus burdens regarding interventions. Palliative care to continue provide support for care coordination, continue to explore goals of care, pain and symptom management as well as anticipatory guidance with transition to hospice when medically appropriate. Recommendations/Counseling Done: 1. Acute kidney injury. Resolved. Likely due to hydronephrosis that was due to urinary retention. Obtain BMP on 06/29/21 and follow with results for re- evaluation. She is no longer on lisinopril which was discontinued during her hospitalization. 2. Hydronephrosis. Secondary to urinary retention. Voiding well. Will re- evaluate with bladder scan at next home visit. 3. Pain of neoplastic origin. Reported to right scapula likely related to tumor burden from small cell lung cancer. Palliative care to manage pain medication. Given recent events with unintentional overdose of MS Contin discussion with patient and daughter/DPOA today and patient wishes to transition to transdermal fentanyl patch. Presently taking 60 M ED of MS Contin. To account for 50% incomplete cross tolerance will begin at 12mcg patch. Discussed with patient and daughter to place fentanyl patch on in AM and take MS Contin 15mg at the same time then d/c MS Contin. Discussed will take 8-10 hours for steady state of fentanyl patch. Reviewed side effects of fentanyl as well as safe disposal of fentanyl. Advised no direct heat to fentanyl patch and rotation of sites. Continue to use hydrocodone 10mg/acetaminophen 325mg 1 tablet every 4 hours as needed for breakthrough pain and continue to record. Goal is to have reduced need for hydrocodone 10mg/acetaminophen 325mg administration and the patient to continue to maintain function with comfort. Has Narcan in the home. Continue to monitor. 4. Neuropathy to right upper extremity. Tumor burden contributing to small cell lung cancer. Improved. Continue gabapentin 300 mg twice daily. Consider dose reduction of duloxetine in the future. 5. Hypertension. Noted to have mild tachycardia while hospitalized. Patient typically has heart rate in the upper 80s to low 90s. No cardiac complaints. Blood pressure 101/43 today. At the present time will remain off lisinopril and hold diltiazem initiation and continue to monitor. 6. Small cell lung cancer, stage I. No evidence of metastases on imaging. Status post medical oncology and radiation oncology. Patient has elected not to proceed with interventions and wishes to focus on quality of life and symptom management. Palliative care to continue to follow and support into disease progression that demonstrates appropriateness to transition to hospice services. 7. Advance care planning. POLST updated today as DN AR with selective interventions. Patient wishes to weigh benefits versus burdens regarding interventions moving forward. Grateful for most recent hospitalization to reverse underlying cause of altered mental status and continues to desire to reverse medical complications if possible without heroics. Continue to build rapport and explore goals of care. Total time spent 65 minutes with greater than 50% of the spent in counseling and coordination of care with the patient and daughter/DPOA Carolyn; review of medication management; review of recent hospitalization; pain and symptom management; advance care planning with updating POLST; and anticipatory guidance. Disclaimer: The chart note was formulated using voice recognition technology and unfortunately sound alike errors may occur.
== END 2021-06-23 13:46 | disposition home or self-care (01) ==
LOC: PC 13:45
PROVIDERS: ATTEND Nurse Practitioner Family
DX: Z51.5 Encounter for palliative care (principal); G89.3 Neoplasm related pain (acute) (chronic); G62.9 Polyneuropathy, unspecified; C34.90 Malignant neoplasm of unspecified part of unspecified bronchus or lung; N13.30 Unspecified hydronephrosis; Z79.899 Other long term (current) drug therapy; Z79.891 Long term (current) use of opiate analgesic; Z79.01 Long term (current) use of anticoagulants; Z72.0 Tobacco use; Z95.2 Presence of prosthetic heart valve; Z66 Do not resuscitate
CPT/HCPCS: 99350

== ENCOUNTER 2021-06-29 17:37 | Outpatient (CLI) | payer MEDICARE ==
[2021-06-29 20:20] LABS: CALCIUM 8.8 mg/dL (8.5-10.3); CREATININE 1.1 mg/dL (0.4-1.0); POTASSIUM 4.6 mmol/L (3.5-5.0)
== END 2021-06-29 17:38 | disposition home or self-care (01) ==
LOC: LAB.S 17:37
PROVIDERS: ATTEND Nurse Practitioner Family
DX: N17.9 Acute kidney failure, unspecified (principal); I10 Essential (primary) hypertension; Z79.01 Long term (current) use of anticoagulants; Z95.2 Presence of prosthetic heart valve
CPT/HCPCS: 36415; 80048; 85610

== ENCOUNTER 2021-06-30 12:16 | Outpatient (CLI) | payer MEDICARE ==
[2021-06-30 16:17] LABS: INR 2.3 (0.8-1.2)
== END 2021-06-30 12:17 | disposition home or self-care (01) ==
LOC: LAB.S 12:16
PROVIDERS: ATTEND Family Medicine
DX: Z95.2 Presence of prosthetic heart valve (principal); Z79.01 Long term (current) use of anticoagulants
CPT/HCPCS: 36415; 85610

== ENCOUNTER 2021-07-06 10:10 | Outpatient (CLI) | payer MEDICARE ==
--- NOTE | 2021-07-06 17:41 | CONSULTATION NOTE ---
Palliative Care Follow Up - Referral Referring Provider: Dr. Javan Carranza Time of Visit: 2266-6348 Referral setting: Home Referral Reason: Pain of neoplasm/Neuropathy/small cell lung cancer - Information Sources Records reviewed: Previous records reviewed History/Review of Systems obtained from: Patient Exam limitations: No limitations - History of Present Illness Update Brief HPI Update: This is a nael 56-year-old female who was seen and evaluated in her home for follow-up due to pain of neoplastic origin, neuropathy, constipation, in the setting of small cell lung cancer. Provider wore N95 mask. Patient was diagnosed with small cell lung cancer on 03/19/2021. She is elected not to proceed forward with interventions such as radiation or chemotherapy and instead wishes to focus on quality of life. After presenting on 06/17 with an altered mental status and potential excess administration of MS Contin in the setting of [place], since returning home the patient has transition to fentanyl patch when 06/23/2021 at 12 mcg. The patient has handled this transition well with adversive out adverse effects. She previously was taking approximately 3 of her hydrocodone 10 mg/acetaminophen 325 mg tablets for breakthrough pain during 24 hours. She has subsequently increased to 4-5 hydrocodone/acetaminophen tablets for pain. Last week, she reports that she had a headache without visual changes that has subsequently resolved. She reports that she has had increased right scapula pain that is sharp. This is occurring more frequently. She denies increased neuropathy symptoms to her right upper extremity. She is requesting refill of gabapentin 300 mg capsules for her neuropathy that she has found beneficial. Patient does relay that there was one evening she did not take her Ambien, which she has been on for a long period of time and reports that she had vivid dreams which resolved when she resumed her Ambien. She is no longer taking Flexeril after tapering off and has not noted in increase in restless leg syndrome since tapering off of Flexeril. She reports that she is sleeping well through the night overall. She states that her appetite remains slightly reduced and her biggest meal presently occurs in the evenings for dinner. She will nibble throughout the day. She is not winded going up and down the stairs. She denies any chest pain. She does have a history of tobacco abuse for a long period of time and has cut back significantly to only 9 to 10 cigarettes/day. Patient is seen well groomed in the living room, articulate and no evidence of distress. Past Medical History: Patient has a past medical history of congestive heart failure, hypertension, arrhythmia, aorta and mitral valve replacement with mechanical valves on Coumadin therapy, seizure disorder no longer on Keppra without seizure activity for years, asthma, sleep apnea, CVA, depression, anxiety, chronic back pain, MRSA, osteomyelitis of the skull, brain surgery for benign tumors in 1989 and for plate replacement in 2018, tonsil and adenoidectomy, tobacco use. Social History - Living Situation Living arrangement: At home Living Situation: With family (daughter(Carolyn), BRYNN and grandson) Support System: Patient was born in [place] and then at the age of 1 her family relocated to [facility]. Patient was . She and her spouse have 2 daughters. One daughter resides in [facility] and the other resides on [facility]. The patient lives with her daughter, Carolyn who is a social worker aide and the patient's DPOA with contact number [phone]. The patient came to live with her daughter and her family approximately 3 years ago. She no longer drives. Dog, Dinesh in the home. Medications/Allergies - Medications Home Medications: Ambulatory Orders Medication Instructions Recorded Confirmed Buspirone HCl 10 mg PO BID 03/11/21 06/17/21 Cyclobenzaprine [Flexeril] 10 mg PO Q8H PRN 03/11/21 06/17/21 Duloxetine HCl [Cymbalta] 60 mg PO BID 03/11/21 06/17/21 Ferrous Sulfate 325 mg PO DAILY 03/11/21 06/17/21 Naloxone HCl [Narcan] 1 spray MILLER ONCE PRN MDD repeat if 03/11/21 06/17/21 no response 2-3min Sumatriptan Succinate [Imitrex] 100 mg PO DAILY PRN 03/11/21 06/17/21 Warfarin [Coumadin] 7.5 mg PO DAILY 03/11/21 06/17/21 Zolpidem Tartrate [Ambien] 10 mg PO QPM PRN 03/11/21 06/17/21 HYDROcodone/ACET 10/325 [[place] 10 1 tab PO Q4H PRN 04/07/21 06/17/21 mg/325 mg] Docusate Sodium 100Mg Capsule 1 cap PO DAILY PRN 05/11/21 06/17/21 [Colace 100Mg Capsule] Magnesium Hydroxide [Milk of 30 ml PO DAILY PRN 05/11/21 06/17/21 Magnesia] Gabapentin [Neurontin] 300 mg PO BID 06/16/21 06/17/21 Sennosides/Docusate Sodium [Senna 4 cap PO TID PRN 06/16/21 06/17/21 Plus 8.6-50 mg Softgel] polyethylene glycoL 3350 [Miralax] 17 gm PO BID PRN 06/16/21 06/17/21 Quetiapine Fumarate [Quetiapine 200 mg PO QPM 06/17/21 06/17/21 Fumarate ER] fentaNYL [Fentanyl 25mcg patch] 1 patch TP Q72H 07/06/21 07/06/21 - Allergies Allergies/Adverse Reactions: Allergies Allergy/AdvReac Type Severity Reaction Status Date / Time trazodone AdvReac Itching Verified 06/17/21 15:09 Review of Systems - Constitutional Constitutional: reports: Poor appetite (see HPI), Weight gain (reports weight 225lb in December 2020 and now 230/235lb). denies: Fever - Eyes Eyes: denies: Blurred vision, Dipolpia - Cardiovascular Cardiovascular: reports: Decr. exercise tolerance. denies: Palpitations, Chest pain, Edema - Respiratory Respiratory: reports: SOB with exertion, Other (+tobacco abuse). denies: Wheezing - Gastrointestinal Gastrointestinal: reports: Early satiety (intermittent). denies: Constipation (controlled), Vomiting - Genitourinary Genitourinary: denies: Dysuria, Other (suprapubic pain; reports to routine voiding) - Musculoskeletal Musculoskeletal: reports: Other (Right scapula pain that radiates down right arm). denies: Assistive devices - Neurological Neurological: reports: Numbness (RUE, improved with gabapentin), Other (Word finding difficulties, intermittent) - Psychiatric Psychiatric: reports: Depression, Anxiety - Hematologic/Lymphatic Hematologic/Lymph: reports: Recurrent infections (UTIs, previously on UTI prophylaxis therapy that was discontinued with acute renal failure 3 years ago per patient and daughter) - All Other Systems All Other Systems: reports: Reviewed and negative Physical Exam - Vital Signs Temperature: 36.6 C Pulse Rate: 98 O2 Saturation: 95 (on RA) Blood Pressure: 110/68 (left arm) - Physical Exam General Appearance: positive: No acute distress, Alert, Other (overweight, well groomed) Eyes Bilateral: positive: Normal inspection ENT: positive: No signs of dehydration Neck: positive: Trachea midline Cardiovascular: positive: Regular rate & rhythm, Other (+audible prostetic valve clicks) Respiratory: positive: No respiratory distress, Breath sounds nml Abdomen: positive: Non-tender, Soft, Nml bowel sounds, Other (+round) Skin: positive: No symptoms Extremities: positive: No pedal edema Neurologic/Psychiatric: positive: Oriented x3, Mood/affect nml Palliative Care - POLST Patient has POLST: Yes POLST Status: DNR, Selective Treatment Pain: Pain worsening (right scapula, presently on fentanyl 12mcg patch and hydrocodone 10mg/325mg acetaminophen not controlled with increase breakthrough pain need) - Palliative Care Discussion: Patient is having increased pain to her right scapula and given her increased need of her breakthrough pain medication, hydrocodone 10 mg/acetaminophen 325 would benefit from dose increase of fentanyl from 12 mcg to 25 mcg patch. Goal remains to have the patient be comfortable and optimize her function. Set expectations regarding increase of fentanyl patch and utilization of breakthrough pain medication, hydrocodone 10 mg/acetaminophen 325 mg. Today, the patient shared that she has been experiencing some thoughts regarding life review and regards to her past choices and interactions with family members and past relationships. We normalized her feelings regarding loss and grief. Encouraged her to continue to journal for reflection. Offered looking into counseling through psychology today however, presently declines. Also offered palliative care profiler hand and also declines today. Results - Lab Results Lab results reviewed: Yes Lab and Imaging Results: 06/29/2021 Sodium 138, potassium 4.6, BUN 18, creatinine 1.1, GFR 51, glucose 127, calcium 8.8 Impression and Recommendations - Palliative Care Impression: This is a nael 56-year-old female with stage I small cell lung cancer in the setting of longstanding tobacco abuse, pain of neoplastic origin and neuropathy to her right upper extremity. Given increased pain to right upper extremity specifically at her scapula we will increase her fentanyl patch from 12 mcg to 25 mcg starting today. Palliative care to continue provide support for care coordination, continue exploration regarding goals of care and normalization regarding grief process, pain and symptom management as well as anticipatory guidance with transition to hospice when medically appropriate. Recommendations/Counseling Done: 1. Pain of neoplastic origin. Related to right scapula likely related to tumor burden from small cell lung cancer. Palliative care to manage pain medication. Recent unintentional overdose of MS Frazier 05/2021 resulting in hospitalization and transition to fentanyl patch 12 mcg. Not adequately controlling pain. Increase fentanyl patch to 25 mcg changing every 72 hours and reviewed rotation of sites. To move forward with initiation of new dose adjustment to change patch today which is due, in place to 12 mcg patches and once picked up fentanyl 25 mcg patch to then switch over to the 25 mcg patch changing every 72 hours and reviewed at length with the patient. New Rx for fentanyl 25 mcg patch sent to [facility]. Continue hydrocodone 10 mg/acetaminophen 325 mg 1 tablet every 4 hours as needed for breakthrough pain and continue to record. Goal is to reduce need for hydrocodone/acetaminophen administration to main function and comfort. Has Narcan in the home. Continue to monitor. 2. Acute kidney injury. Resolved. Likely due to hydronephrosis that was due to urinary retention. BUN and creatinine returned to baseline with lab work obtained on 06/29/2021 and reviewed with patient. No longer on lisinopril. 3. Elevated resting heart rate. Denies cardiac complaints. Does have mild tachycardia. Patient typically has had a heart rate in the upper 80s to low 90s. Today, heart rate 98 and asymptomatic. Continue to monitor. If continues with elevated heart rate consider addition of Dital exam for management. Continue to monitor. 4. Neuropathy to right upper extremity. Tumor burden contributing to small cell lung cancer. Stable. Continue gabapentin 300 mg twice daily with 90-day supply sent to [facility] in [place]. Consider dose reduction of duloxetine in the near future. 5. Tobacco abuse. Presently 9 to 10 cigarettes smoked per day. Significantly r educed from previous use. Continue to work on gradual reduction with goal of smoking cessation. Total time spent 45 minutes with greater than 50% of the spent in counseling and coordination of care with the patient; review of pain and symptom management; examination of patient; supportive and empathetic listening; anticipatory guidance. Contacted patient's daughter/TARI Leon at [phone] updated regarding plan of care with questions answered and addressed. Disclaimer: The chart note was formulated using voice recognition technology and unfortunately sound alike errors may occur.
== END 2021-07-06 10:11 | disposition home or self-care (01) ==
LOC: PC 10:10
PROVIDERS: ATTEND Nurse Practitioner Family
DX: Z51.5 Encounter for palliative care (principal); C34.90 Malignant neoplasm of unspecified part of unspecified bronchus or lung; G89.3 Neoplasm related pain (acute) (chronic); R00.0 Tachycardia, unspecified; F17.210 Nicotine dependence, cigarettes, uncomplicated; G62.9 Polyneuropathy, unspecified; Z79.01 Long term (current) use of anticoagulants; Z95.2 Presence of prosthetic heart valve; I11.0 Hypertensive heart disease with heart failure; I50.9 Heart failure, unspecified; Z66 Do not resuscitate
CPT/HCPCS: 99349

== ENCOUNTER 2021-08-05 12:30 | Outpatient (CLI) | payer MEDICARE ==
--- NOTE | 2021-08-05 15:33 | CONSULTATION NOTE ---
Palliative Care Follow Up - Referral Referring Provider: Dr. Javan Carranza Time of Visit: [id number] Referral setting: Home Referral Reason: Pain of neoplasm/ Neuropathy/Small Cell Lung Cancer - Information Sources Records reviewed: RN notes reviewed History/Review of Systems obtained from: Patient, Family (daughter/TARI Leon) Exam limitations: Clinical condition (Mild STM impairment) - History of Present Illness Update Brief HPI Update: This is a nael 56-year-old female who was seen evaluated today in her home for follow-up due to pain of neoplastic origin, neuropathy in the setting of small cell cancer. The patient's daughter, Carolyn is present. Provider wore N95 mask. Patient was diagnosed with small cell lung cancer on 03/19/2021. She is elected not to proceed forward with intervention such as radiation or chemotherapy instead wishes to focus on quality of life. The patient has been tolerating fentanyl patch now titrated up to 37.5 mcg. She reports some reduction in pain however, she is still taking approximately 4 to 5 tablets of her hydrocodone 10 mg/acetaminophen 325 mg in a day. Pain is more specific to her back and right shoulder. The patient was initiated and when dexamethasone 2 mg daily 1 07/30 and patient reports an improvement of her pain to her shoulder as well as her right knee. However, since initiating the dexamethasone she reports that she is perceiving that her hands are shaky with action or rest intermittently as well as some insomnia despite taking the medica tion early in the day. She has been sleeping less and not taking naps during the day since initiating the dexamethasone. Therefore, would benefit from dose reduction and tapering off. The patient's daughter, separately reports that the patient has been more reserved and subdued of late. This may be due to multiple changes within the family household such as having to put the family dog down yesterday. As well as some underlying changes. The patient continues to report a daily bowel movement. The patient's appetite continues to remain reduced and she is not snacking much during the day. Her headaches are reduced since her neck and shoulder pain are improved. She is significantly cut back her tobacco use to 8 cigarettes/day on average. Patient was seen in the living room, articulate no evidence of distress. Past Medical History: Patient has a past medical history of congestive heart failure, hypertension, arrhythmia, aorta and mitral valve replacement with mechanical valves on Coumadin therapy, seizure disorder no longer on Keppra without seizure activity for years, asthma, sleep apnea, CVA, depression, anxiety, chronic back pain, MRSA, osteomyelitis of the skull, brain surgery for benign tumors in 1989 and for plate replacement in 2018, tonsil and adenoidectomy, tobacco use. Social History - Living Situation Living arrangement: At home Living Situation: With family (daughter(Carolyn), BRYNN and grandson) Support System: Patient was born in [place] and then at the age of 1 her family relocated to [facility]. Patient was . She and her spouse have 2 daughters. One daughter resides in [place] [facility]) and the other resides on [facility]. The patient lives with her daughter, Carolyn who is a manager social media and the patient's OA with contact number [phone]. The patient came to live with her daughter and her family approximately 3 years ago. She no longer drives. The family just had to put the family dog, Dinesh, down yesterday and everyone is appropriately grieving. Medications/Allergies - Medications Home Medications: Ambulatory Orders Medication Instructions Recorded Confirmed Buspirone HCl 10 mg PO BID 03/11/21 06/17/21 Cyclobenzaprine [Flexeril] 10 mg PO Q8H PRN 03/11/21 06/17/21 Duloxetine HCl [Cymbalta] 60 mg PO BID 03/11/21 06/17/21 Ferrous Sulfate 325 mg PO DAILY 03/11/21 06/17/21 Naloxone HCl Nasal [Narcan Nasal] 1 spray MILLER ONCE PRN MDD repeat if 03/11/21 06/17/21 no response 2-3min Sumatriptan Succinate [Imitrex] 100 mg PO DAILY PRN 03/11/21 06/17/21 Warfarin [Coumadin] 7.5 mg PO DAILY 03/11/21 06/17/21 Zolpidem Tartrate [Ambien] 10 mg PO QPM PRN 03/11/21 06/17/21 HYDROcodone/ACET 10/325 [[place] 10 1 tab PO Q4H PRN 04/07/21 06/17/21 mg/325 mg] Docusate Sodium 100Mg Capsule 1 cap PO DAILY PRN 05/11/21 06/17/21 [Colace 100Mg Capsule] Magnesium Hydroxide [Milk of 30 ml PO DAILY PRN 05/11/21 06/17/21 Magnesia] Gabapentin [Neurontin] 300 mg PO BID 06/16/21 06/17/21 Sennosides/Docusate Sodium [Senna 4 cap PO TID PRN 06/16/21 06/17/21 Plus 8.6-50 mg Softgel] polyethylene glycoL 3350 [Miralax] 17 gm PO BID PRN 06/16/21 06/17/21 Quetiapine Fumarate [Quetiapine 200 mg PO QPM 06/17/21 06/17/21 Fumarate ER] dexAMETHasone [Decadron] 1 mg PO DAILY MDD x7 days then 07/30/21 07/30/21 every other, stop fentaNYL 50 MCG PATCH [Duragesic 1 patch TP Q72H 08/05/21 08/05/21 50mcg patch] - Allergies Allergies/Adverse Reactions: Allergies Allergy/AdvReac Type Severity Reaction Status Date / Time trazodone AdvReac Itching Verified 06/17/21 15:09 Review of Systems - Constitutional Constitutional: reports: Poor appetite (see HPI). denies: Fatigue, Fever - Eyes Eyes: denies: Blurred vision - Cardiovascular Cardiovascular: reports: Decr. exercise tolerance. denies: Edema - Respiratory Respiratory: reports: SOB with exertion, Other (+tobacco abuse). denies: Wheezing - Gastrointestinal Gastrointestinal: reports: Early satiety (intermittent). denies: Constipation (controlled), Vomiting - Genitourinary Genitourinary: reports: Other (+intermittent stress incontinence). denies: Dysuria - Musculoskeletal Musculoskeletal: reports: Back pain, Other (+Right scapula pain). denies: Assistive devices - Neurological Neurological: reports: Numbness (RUE, improved with gabapentin), Other (Word finding difficulties, intermittent) - Psychiatric Psychiatric: reports: Depression, Anxiety - Hematologic/Lymphatic Hematologic/Lymph: reports: Recurrent infections (UTIs, previously on UTI prophylaxis therapy that was discontinued with acute renal failure 3 years ago per patient and daughter) - All Other Systems All Other Systems: reports: Reviewed and negative Physical Exam - Vital Signs Temperature: 36.4 C Pulse Rate: 90 O2 Saturation: 98 (on RA) Blood Pressure: 136/75 - Physical Exam General Appearance: positive: No acute distress, Alert, Other (overweight, well groomed) Eyes Bilateral: positive: Normal inspection ENT: positive: No signs of dehydration Neck: positive: Trachea midline Cardiovascular: positive: Regular rate & rhythm, Other (+audible prostetic valve clicks) Respiratory: positive: No respiratory distress, Breath sounds nml Abdomen: positive: Non-tender, Soft, Nml bowel sounds, Other (+round; bladder scan used and no evidence of retention) Skin: positive: No symptoms Extremities: positive: No pedal edema Neurologic/Psychiatric: positive: Oriented x3, Mood/affect nml Palliative Care - POLST Patient has POLST: Yes POLST Status: DNR, Selective Treatment Pain: Pain unchanged (minor improvement with pain most specifically to right scapula with pain at times rating 9/10 and will improved to 6/10 but patient would prefer pain to be lower.) Drowsiness/Sedation: None Anxiety: None Feelings of wellbeing/Perceived Quality of Life: Good Constipation: Yes, Opoid induced, Managed - Palliative Care Discussion: Patient continues to present with pain to her right scapula and did find some relief with increase of her fentanyl patch from 25 mcg to 37.5 mcg however, she continues to use approximately 50 [place] gram equivalents of morphine with her hydrocodone usage and therefore, would benefit from titration of her fentanyl patch from 37.5 mcg to 50 mcg. Patient is in agreement that she would like to be more comfortable and optimize her function. She has had some benefit from dexamethasone however, it has provided too much of a stimulation even at such a low dose and therefore we will reduce to 1 mg daily x7 days and then every other day x7 days and then stop. The patient and her family have had some recent changes within the household such as the loss of a beloved family pet that may have been contributing to some of her more subdued nature. However, the patient today denies depressive symptoms and is engaged and alert. We will continue to monitor closely. Impression and Recommendations - Palliative Care Impression: This is a nael 56-year-old female with stage I small cell lung cancer in the setting of longstanding tobacco abuse, pain of neoplastic origin and neuropathy to right upper extremity. Given the patient's continued pain most specifically to her right scapula we will increase her fentanyl patch to 50 mcg. Pelvic care to continue provide support for care coordination, exploration regarding goals of care, normalization regarding grief process, pain and symptom management as well as anticipatory guidance with transition to hospice when medically appropriate. Recommendations/Counseling Done: 1. Pain of neoplastic origin. To back as well as to right scapula likely related to tumor burden from small cell lung cancer. Positive care to manage pain medication. In May 2021 the patient had unintentional overdose of MS Freddie resulting in hospitalization and transition to fentanyl patch. As fentanyl patch is still not adequately controlling her pain will increase from 37.5 mcg to 50 mcg patch. Presently patient is presently averaging 125 MED per day (37.5mcg fentanyl patch and PRN breakthrough pain medication) and will increase to 100MED per day with fentanyl patch with Hydrocodone 10 mg/missy taminophen 325 mg take 1 tablet every 4 hours as needed for breakthrough pain and continue to record. We will reduce dexamethasone to 1 mg daily x7 days then every other day x7 days then discontinue. Goal is to reduce need for hydrocodone/acetaminophen administration to maintain function and comfort. Has Narcan in the home. Reviewed opioid safe practices. 2. Stress incontinence. Not unexpected given the patient's history of childbirth. Discussed performing Kegel exercises and reviewed performing them several times per day and holding for approximately 10 seconds. Will attempt. 3. Tobacco abuse. Presently averaging about 8 cigarettes/day smoked, significantly reduced from previous use. Continue to work on gradual reduction with goal of smoking cessation. Patient has made significant progress. 4. Neuropathy to right upper extremity. Tumor burden contributing to small cell lung cancer. Stable. Continue gabapentin 300 mg twice daily with 90-day supply sent to [facility] pharmacy in [place] previously. Moving forward patient would like to utilize [facility] mail order pharmacy for 90 days prescriptions. Consider dose reduction of duloxetine in the future. Total time spent 60 minutes with greater than 50% spent in counseling and coordination of care with the patient; reviewed pain symptom management; review of dose titration of fentanyl; examination of patient; supportive empathetic listening; and anticipatory guidance. Disclaimer: The chart note was formulated using voice recognition technology and unfortunately sound alike errors may occur.
== END 2021-08-05 12:31 | disposition home or self-care (01) ==
LOC: PC 12:30
PROVIDERS: ATTEND Nurse Practitioner Family
DX: Z51.5 Encounter for palliative care (principal); C34.90 Malignant neoplasm of unspecified part of unspecified bronchus or lung; G89.3 Neoplasm related pain (acute) (chronic); F17.210 Nicotine dependence, cigarettes, uncomplicated; N39.3 Stress incontinence (female) (male); G62.9 Polyneuropathy, unspecified; Z66 Do not resuscitate
CPT/HCPCS: 99350

== ENCOUNTER 2021-08-13 14:55 | Outpatient (CLI) | payer MEDICARE ==
[2021-08-13 20:23] LABS: INR 3.8 (0.8-1.2); PT - PROTHROMBIN TIME 42.6 secs (9.9-12.6)
== END 2021-08-13 14:56 | disposition home or self-care (01) ==
LOC: LAB.S 14:55
PROVIDERS: ATTEND Internal Medicine
DX: Z79.01 Long term (current) use of anticoagulants (principal); Z95.2 Presence of prosthetic heart valve
CPT/HCPCS: 36415; 85610

== ENCOUNTER 2021-08-26 10:05 | Outpatient (CLI) | payer MEDICARE ==
--- NOTE | 2021-08-26 12:57 | CONSULTATION NOTE ---
Palliative Care Follow Up - Referral Referring Provider: Dr. Javan Carranza Time of Visit: [id number] Referral setting: Home Referral Reason: Anxiety/Neuropathy/Pain of neoplasm/Small Cell lung cancer - Information Sources Records reviewed: Previous records reviewed History/Review of Systems obtained from: Patient, Family (daughter, Carolyn) Exam limitations: No limitations - History of Present Illness Update Brief HPI Update: This is a nael 56-year-old female who is seen in follow today in her home for follow-up due to pain of neoplastic origin, neuropathy, and anxiety in the setting of small cell lung cancer. Provider wore N95 mask. Patient was diagnosed with small cell lung cancer on 03/19/2021. She is elected not to proceed forward with intervention such as radiation or chemotherapy and instead wishes to focus on quality of life. This remains her steadfast decision. She does express today, some concerns that if she were to move forward with with dignity her PCP who had previously agreed to be one of the signatures will be relocating. Reassurance provided when the time comes we will be able to coordinate with end-of-life [facility] in order to find an additional signature outside of hospice health care / medical job titles. She is having an increase in her overall pain. This is after increasing her fentanyl patch to 50 mcg last month as well as tapering off of dexamethasone. Her last dose of dexamethasone was on Tuesday. Dexamethasone was contributing to her not being able to sleep with insomnia. On dexamethasone and without dexamethasone she does not perceive a great difference with control of her overall pain. She continues utilizing her hydrocodone 10 mg/acetaminophen 325 mg up to 5 to 6/day. She does note that when she utilizes her hydrocodone/acetaminophen that this dials down her pain. She reports that she is experiencing pain that will begin in her lower back and radiate to her right scapula and to her neck. She is presently on gabapentin 300 mg twice daily. Intermittently she will note that the pain will go from her neck to be perceived but behind her right eye. Denies blurred vision or double vision. Denies any migraines for some time. She is no longer taking Flexeril. She is also experiencing some increased anxiety and depression wanting things "to end." She denies suicidal ideation or plan. She does wish to speak to the palliative care painter ordnance for additional support. She is presently on BuSpar, quetiapine, and duloxetine. All of these have been for some time. Therefore, may not be as beneficial as it once was. She has been on various SSRIs in the past and has altered therapy due to decreased effectiveness. Since coming off of dexamethasone she has noticed some mild improvement in her sleeping ability. She is having a bowel movement daily. She feels as if she is completely emptying her bladder. She is not taking naps during the day. She continues to have her largest meal in the evening. She is snacking on peanut butter cups and cheesy ritz during the day. Daughter expresses concerns nursing possible jaundiced intermittently to the sclera on the sides of the patient's eyes. Not perceived today. Patient is seen well groomed and living room, articulate and no evidence of distress. She did become tearful when discussing some anxiety and end-of-life. Past Medical History: Patient has a past medical history of congestive heart failure, hypertension, arrhythmia, aorta and mitral valve replacement with mechanical valves on Coumadin therapy, seizure disorder no longer on Keppra without seizure activity for years, asthma, sleep apnea, CVA, depression, anxiety, chronic back pain, MRSA, osteomyelitis of the skull, brain surgery for benign tumors in 1989 and for plate replacement in 2018, tonsil and adenoidectomy, tobacco use. Social History - Living Situation Living arrangement: At home Living Situation: With family (daughter(Carolyn), BRYNN and grandson) Support System: Patient was born in [place] and then at the age of 1 her family relocated to [facility]. Patient was . She and her spouse have 2 daughters. One daughter resides in [facility] and the other resides on [facility]. The patient lives with her daughter, Carolyn who is a rn social services and the patient's OA with contact number [phone]. The patient came to live with her daughter and her family approximately 3 years ago. She no longer drives. THe family just got a new corgie puppy, Sweet Selene two weeks ago and this has provided lightness into the home. Medications/Allergies - Medications Home Medications: Ambulatory Orders Medication Instructions Recorded Confirmed Buspirone HCl 10 mg PO BID 03/11/21 06/17/21 Cyclobenzaprine [Flexeril] 10 mg PO Q8H PRN 03/11/21 06/17/21 Duloxetine HCl [Cymbalta] 60 mg PO BID 03/11/21 06/17/21 Ferrous Sulfate 325 mg PO DAILY 03/11/21 06/17/21 Naloxone HCl Nasal [Narcan Nasal] 1 spray MILLER ONCE PRN MDD repeat if 03/11/21 06/17/21 no response 2-3min Sumatriptan Succinate [Imitrex] 100 mg PO DAILY PRN 03/11/21 06/17/21 Warfarin [Coumadin] 7.5 mg PO DAILY 03/11/21 06/17/21 Zolpidem Tartrate [Ambien] 10 mg PO QPM PRN 03/11/21 06/17/21 HYDROcodone/ACET 10/325 [[place] 10 1 tab PO Q4H PRN 04/07/21 06/17/21 mg/325 mg] Docusate Sodium 100Mg Capsule 1 cap PO DAILY PRN 05/11/21 06/17/21 [Colace 100Mg Capsule] Magnesium Hydroxide [Milk of 30 ml PO DAILY PRN 05/11/21 06/17/21 Magnesia] Gabapentin [Neurontin] 300 mg PO TID 06/16/21 06/17/21 Sennosides/Docusate Sodium [Senna 4 cap PO TID PRN 06/16/21 06/17/21 Plus 8.6-50 mg Softgel] polyethylene glycoL 3350 [Miralax] 17 gm PO BID PRN 06/16/21 06/17/21 Quetiapine Fumarate [Quetiapine 200 mg PO QPM 06/17/21 06/17/21 Fumarate ER] fentaNYL 50 MCG PATCH [Duragesic 1 patch TP Q72H MDD with 12mcg for 08/05/21 08/05/21 50mcg patch] 62mcg total Alprazolam [Xanax] 1 tab PO TID PRN 08/26/21 08/26/21 fentaNYL 12 MCG PATCH [Duragesic 1 patch TP Q72H MDD with 50mcg for 08/26/21 08/26/21 12mcg patch] 62mcg - Allergies Allergies/Adverse Reactions: Allergies Allergy/AdvReac Type Severity Reaction Status Date / Time trazodone AdvReac Itching Verified 06/17/21 15:09 Review of Systems - Constitutional Constitutional: reports: Poor appetite (see HPI), Weight gain (per patient, perceived loss by daughter). denies: Fatigue, Fever - Eyes Eyes: denies: Blurred vision, Vision loss, Dipolpia - Ears, Nose & Throat Ears, Nose & Throat: denies: Hearing loss - Cardiovascular Cardiovascular: reports: Decr. exercise tolerance. denies: Edema - Respiratory Respiratory: reports: SOB with exertion, Other (+tobacco abuse). denies: Wheezing - Gastrointestinal Gastrointestinal: reports: Early satiety (intermittent). denies: Abdominal pain , Constipation (controlled), Nausea, Vomiting - Genitourinary Genitourinary: reports: Other (+intermittent stress incontinence). denies: Dysuria - Musculoskeletal Musculoskeletal: reports: Back pain, Other (+Right scapula pain). denies: Assistive devices - Neurological Neurological: reports: Numbness (RUE), Other (radiation of pain from lower back to right scapula) - Psychiatric Psychiatric: reports: Depression, Anxiety - Hematologic/Lymphatic Hematologic/Lymph: reports: Recurrent infections (UTIs, previously on UTI prophylaxis therapy that was discontinued with acute renal failure 3 years ago per patient and daughter) - All Other Systems All Other Systems: reports: Reviewed and negative Physical Exam - Vital Signs Temperature: 36.7 C Pulse Rate: 84 O2 Saturation: 97 (on RA) Blood Pressure: 138/69 (left wrist) - Physical Exam General Appearance: positive: No acute distress, Alert, Other (overweight, well groomed) Eyes Bilateral: positive: Normal inspection ENT: positive: No signs of dehydration Neck: positive: Trachea midline Cardiovascular: positive: Regular rate & rhythm, Other (+audible prostetic valve clicks) Respiratory: positive: No respiratory distress, Breath sounds nml Abdomen: positive: Non-tender, Soft, Nml bowel sounds, Other (+round) Skin: positive: No symptoms Extremities: positive: No pedal edema Neurologic/Psychiatric: positive: Oriented x3, Mood/affect nml, Weakness (some noted muscule wasting noted to extremities), Other (Became tearful discussing recent anxiety and EOL, appropriately) Palliative Care - POLST Patient has POLST: Yes POLST Status: DNR, Comfort Measures Pain: Pain worsening (noted from lower back to right scapula most pronouced with fentanyl 50mcg patch and breakthrough hydrocodone/acetaminophen 10/325mg) Sleep: Sleep improved Constipation: No, Opoid induced, Managed - Palliative Care Discussion: Patient is having increased pain with neuropathic component from the base of her spine up to her right scapula and into her right cervical spine and would benefit from increase of her fentanyl patch given her utilization of with neuro pathic component from the base of her spine up to her right scapula and into her right cervical spine and would benefit from increase of her fentanyl patch given her utilization of hydrocodone/acetaminophen at approximately 60 mg of hydrocodone per day. Will increase fentanyl patch from 50mcg to 62 mcg. Goal remains to have the patient be comfortable and optimize her function. Set expectations to continue to utilize her breakthrough pain medication and not be afraid of utilizing it as there are parameters.Due to the neuropathic component will increase the patient's gabapentin with continuation of 300 mg in the morning and evening with addition of midday dose. Initially start at gabapentin 100 mg in the afternoon daily x2 days then increase to gabapentin 300 mg 3 times a day. Given the lack of benefit the patient perceived with dexamethasone will not resume for assistance with pain. The patient is appropriately experiencing some anxiety and grief and loss associated with her decreased functional ability with things around the house. She previously was always someone that has been active. Despite her expression of increased depressive symptoms and anxiety she denies suicidal ideation or a plan. Given the length of time she has been on duloxetine will benefit from dose reduction and transition to SSRI. However, given gabapentin off label can assist with mood will first increase gabapentin before adjusting BuSpar and duloxetine to not change to many things at 1 time and patient and daughter in agreement. Given the patient expressing anxiety and fears regarding end-of-life is open to support from the palliative care painter ordnanceDonna and will make that request to give additional support within the home. Impression and Recommendations - Palliative Care Impression: This is a nael 56-year-old female with stage I small cell lung cancer in the setting of longstanding tobacco abuse, pain of neoplastic origin, neuropathy, and depression and anxiety. Given increased pain with neuropathic component will increase the patient's fentanyl patch to 62 mcg (50 mcg and 12 mcg patch (as well as increasing gabapentin to 300 mg 3 times daily. Will benefit from transitioning to a new antianxiety/antidepressant in the near future as well support from palliative care painter ordnance revolving around anxiety and end-of-life. Palliative care to continue provide support for care coordination, continue exploration regarding goals of care, normal elicitation of feelings; pain and symptom management as well as anticipatory guidance with transition to hospice when medically appropriate. Recommendations/Counseling Done: 1. Pain of neoplastic origin. Now with a neuropathic component from base of spine to right scapula possibly related to tumor burden from small cell lung cancer. Palliative care to manage pain medication. Unintentional overdose of MS Freddie 05/2021 resulting in hospitalization and transition to fentanyl. Pain is not adequately controlled at the present time. Will increase fentanyl patch by 25% to 62 mcg (50 mcg +12 mcg patch together every 72 hours. New Rx for 50 mcg and 12 mcg patches sent to [facility] in [place]. Continue hydrocodone 10 mg/acetaminophen 325 mg 1 tablet every 4 hours as needed for breakthrough pain and continue to record. Has Narcan in the home. We will also increase gabapentin from twice daily to 3 times daily with 300 mg. Initially, introduce gabapentin 100 mg daily at midday x2 days before increasing to 300 mg and moving forward after 2 days to have gabapentin 300 mg 3 times daily and Rx sent to [facility] order pharmacy. Continue to monitor. 2. Anxiety. Gabapentin can assist with some underlying anxiety and see diagnosis pain of neoplastic origin for additional details. The present time remain on BuSpar 10 mg twice daily with expectation that may add midday dose of BuSpar initially at 5 mg and based on tolerance increasing to 10 mg 3 times daily. We will also add alprazolam 0.25 mg take 1 tablet 3 times a day if needed for acute anxiety and Rx sent to [facility] in [place]. Reviewed purpose, dose, and side effects at length with patient and daughter with understanding verbalized. We will also request palliative care painter ordnance to provide support with anxiety revolving end of life concerns. 3. Depression. Longstanding history. Recent exacerbation and given multiple medication changes today will hold off on further adjustment but will look at decreasing Cymbalta and then transitioning to a SSRI such as Zoloft given patient's cardiac history has likely Cymbalta is no longer effective for management. Supportive and empathetic listening provided today. We will also request palliative care painter ordnance to provide support. 4. Small cell lung cancer, stage I. No previous evidence of metastases on imaging. Status post medical oncology and radiation oncology. The patient remains steadfast in her decision not to proceed with interventions and wishes to focus on quality of life and symptom management. Discussed no evidence of jaundice on examination today. And reviewed with patient and daughter if not wishing to proceed with interventions obtainment of imaging would not change the course or unless the patient wishes to move forward with an intervention with understanding verbalized.Palliative care to continue to follow and support regarding disease progression that demonstrates appropriateness to transition to hospice services. Patient has contemplated with dignity as a potential in the future. Total time spent 50 minutes with greater than 50% of the spent in counseling and coordination of care with the patient and daughter; review of anxiety and depression with symptom management; medication management; pain management and adjustment with setting expectations; supportive listening; reintroduction of palliative care painter ordnance; and anticipatory guidance. Disclaimer: The chart note was formulated using voice recognition technology and unfortunately sound alike errors may occur.
== END 2021-08-26 10:06 | disposition home or self-care (01) ==
LOC: PC 10:05
PROVIDERS: ATTEND Nurse Practitioner Family
DX: Z51.5 Encounter for palliative care (principal); G89.3 Neoplasm related pain (acute) (chronic); C34.90 Malignant neoplasm of unspecified part of unspecified bronchus or lung; Z79.891 Long term (current) use of opiate analgesic; Z79.899 Other long term (current) drug therapy; Z66 Do not resuscitate; F41.9 Anxiety disorder, unspecified; F32.A Depression, unspecified; Z72.0 Tobacco use; R63.0 Anorexia; R68.81 Early satiety; G62.9 Polyneuropathy, unspecified; K59.03 Drug induced constipation; T40.2X5A Adverse effect of other opioids, initial encounter
CPT/HCPCS: 99350

== ENCOUNTER 2021-09-03 12:30 | Outpatient (CLI) | payer MEDICARE ==
--- NOTE | 2021-09-03 14:22 | CONSULTATION NOTE ---
Palliative Care Follow Up - Referral Referring Provider: Dr. Wojciech Carranza Time of Visit: [id number] Referral setting: Home Referral Reason: Wheezing/Pain of neoplasm/Small Cell lung Cancer - Information Sources Records reviewed: Previous records reviewed History/Review of Systems obtained from: Patient, Family (daughter, Carolyn) Exam limitations: No limitations - History of Present Illness Update Brief HPI Update: This is a nael 56-year-old female who was seen in Acute evaluation today due to respiratory concerns at reported yesterday with wheezing and oxygen desaturation, anxiety, and pain of neoplastic origin in the setting of small cell lung cancer with her daughter, Carolyn present. Provider wore N95 mask. Patient was diagnosed with small cell lung cancer on 03/19/2021. She consulted with radiation oncology, Dr. Guevara and on oncologist Dr. Harry and elected to not move forward with intervention such as radiation or chemotherapy and instead wishes to focus on quality of life and this remains her steadfast decision. Yesterday, the patient reports that she was experiencing increased shortness of breath and wheezing. She reports that her oxygen with her home pulse oximeter was 88%. On average it has been around 92% over the last few days. Today, the patient reports to feeling better after she utilize our Advair inhaler last evening before bed. She denies fever, chills does report sweating at times. Sweating has made it difficult for her fentanyl patch to remain adherent none despite coverage. She does have an intermittent cough not more than baseline. She continues to smoke cigarettes approximately 8/day which is at a reduction of her previous quantity. She has never been on oxygen. She has utilized an inhaler in the past. She has never been diagnosed with COPD. Last week, she reports some burning with urination that resolved with Azo [id number]. She perceives that she is emptying her bladder fully. Denies increased frequency. Her anxiety is much improved after introduction of Xanax 0.25 mg to be utilized 3 times daily if needed. Typically, the patient is usually at a the Xanax twice a day since last week. She reports that this has created calm and allowed her to feel more mellow. She is also no longer having increased anxiety with her's thoughts surrounding end-of-life. Yesterday, her BuSpar was increased to 10 mg in the morning, 5 mg in the afternoon, and 10 mg in the evening. Her neuropathy is also improved from her right shoulder with radiation with increase of gabapentin to 300 mg 3 times daily. Due to increasing overall pain and her fentanyl patch on 08/26 was increased to 62 mcg. The patient reports that this has been an improvement in her overall pain. The patient's daughter perceives that the patient continues to be slowing down overall. The patient is seen well groomed in the living room, articulate and no evidence of distress. Past Medical History: Patient has a past medical history of congestive heart failure, hypertension, arrhythmia, aorta and mitral valve replacement with mechanical valves on Coumadin therapy, seizure disorder no longer on Keppra without seizure activity for years, asthma, sleep apnea, CVA, depression, anxiety, chronic back pain, MRSA, osteomyelitis of the skull, brain surgery for benign tumors in 1989 and for plate replacement in 2017, tonsil and adenoidectomy, tobacco use. Social History - Living Situation Living arrangement: At home Living Situation: With family (daughter(Carolyn), BRYNN and grandson) Support System: Patient was born in [place] and then at the age of 1 her family relocated to [facility]. Patient was . She and her spouse have 2 daughters. One daughter resides in [facility]) and the other resides on [facility]. The patient lives with her daughter, Carolyn who is a social media coordinator and the patient's OA with contact number [phone]. The patient came to live with her daughter and her family approximately 3 years ago. She no longer drives. THe family just got a new corgie puppy, Sweet Selene three weeks ago and this has provided lightness into the home. Requesting a palliative volunteer for support in the home. The patient has been qualified for [facility] but is on a wait list with [facility] for a caregiver. Medications/Allergies - Medications Home Medications: Ambulatory Orders Medication Instructions Recorded Confirmed Buspirone HCl 10 mg PO BID 03/11/21 06/17/21 Cyclobenzaprine [Flexeril] 10 mg PO Q8H PRN 03/11/21 06/17/21 Duloxetine HCl [Cymbalta] 60 mg PO BID 03/11/21 06/17/21 Ferrous Sulfate 325 mg PO DAILY 03/11/21 06/17/21 Naloxone HCl Nasal [Narcan Nasal] 1 spray MILLER ONCE PRN MDD repeat if 03/11/21 06/17/21 no response 2-3min Sumatriptan Succinate [Imitrex] 100 mg PO DAILY PRN 03/11/21 06/17/21 Warfarin [Coumadin] 7.5 mg PO DAILY 03/11/21 06/17/21 Zolpidem Tartrate [Ambien] 10 mg PO QPM PRN 03/11/21 06/17/21 HYDROcodone/ACET 10/325 [[place]uben 10 1 tab PO Q4H PRN 04/07/21 06/17/21 mg/325 mg] Docusate Sodium 100Mg Capsule 1 cap PO DAILY PRN 05/11/21 06/17/21 [Colace 100Mg Capsule] Magnesium Hydroxide [Milk of 30 ml PO DAILY PRN 05/11/21 06/17/21 Magnesia] Gabapentin [Neurontin] 300 mg PO TID 06/16/21 06/17/21 Sennosides/Docusate Sodium [Senna 4 cap PO TID PRN 06/16/21 06/17/21 Plus 8.6-50 mg Softgel] polyethylene glycoL 3350 [Miralax] 17 gm PO BID PRN 06/16/21 06/17/21 Quetiapine Fumarate [Quetiapine 200 mg PO QPM 06/17/21 06/17/21 Fumarate ER] fentaNYL 50 MCG PATCH [Duragesic 1 patch TP Q72H MDD with 12mcg for 08/05/21 08/05/21 50mcg patch] 62mcg total Alprazolam [Xanax] 1 tab PO TID PRN 08/26/21 08/26/21 fentaNYL 12 MCG PATCH [Duragesic 1 patch TP Q72H MDD with 50mcg for 08/26/21 08/26/21 12mcg patch] 62mcg Albuterol Sulfate [Proair Hfa 2 puffs IH Q4H PRN 09/03/21 09/03/21 Inhaler] Fluticasone/Salmeterol [Advair 1 puffs IH BID 09/03/21 09/03/21 250-50 Diskus] busPIRone [Buspar] 5 mg PO .AFTERNOON 09/03/21 09/03/21 - Allergies Allergies/Adverse Reactions: Allergies Allergy/AdvReac Type Severity Reaction Status Date / Time trazodone AdvReac Itching Verified 06/17/21 15:09 Review of Systems - Constitutional Constitutional: reports: Fatigue, Poor appetite, Weight gain (per patient, perceived loss by daughter), Other (+sweating). denies: Fever - Eyes Eyes: denies: Blurred vision - Ears, Nose & Throat Ears, Nose & Throat: denies: Dentures - Cardiovascular Cardiovascular: reports: Decr. exercise tolerance. denies: Chest pain, Edema - Respiratory Respiratory: reports: Cough, Wheezing, SOB with exertion, Other (+tobacco abuse) - Gastrointestinal Gastrointestinal: reports: Early satiety (intermittent). denies: Abdominal pain, Constipation (controlled), Vomiting - Genitourinary Genitourinary: reports: Other (+intermittent stress incontinence). denies: Dysuria, Frequency - Musculoskeletal Musculoskeletal: reports: Back pain, Other (+Right scapula pain). denies: Assistive devices - Neurological Neurological: reports: Numbness (RUE), Other (radiation of pain from lower back to right scapula) - Psychiatric Psychiatric: reports: Depression, Anxiety (improved with xanax) - Hematologic/Lymphatic Hematologic/Lymph: reports: Recurrent infections (UTIs, previously on UTI prophylaxis therapy that was discontinued with acute renal failure 3 years ago per patient and daughter) - All Other Systems All Other Systems: reports: Reviewed and negative Physical Exam - Vital Signs Temperature: 36.3 C Pulse Rate: 89 O2 Saturation: 96 (on RA at rest) Blood Pressure: 110/60 - Physical Exam General Appearance: positive: No acute distress, Alert, Other (overweight, well groomed) Eyes Bilateral: positive: Normal inspection ENT: positive: No signs of dehydration Neck: positive: Trachea midline Cardiovascular: positive: Regular rate & rhythm, Other (+audible prostetic valve clicks) Respiratory: positive: Breath sounds nml, Wheezes (audible with upper airway), Other (Reduced air movement; no dullness to percussion). negative: Diminished in bases, Rales, Rhonchi Abdomen: positive: Non-tender, Soft, Nml bowel sounds, Other (+round) Skin: positive: No symptoms Extremities: positive: No pedal edema Neurologic/Psychiatric: positive: Oriented x3, Mood/affect nml, Weakness ( muscule wasting noted to extremities) Comments/Other: Pulse ox after walking and upstairs 93-94% Palliative Care - POLST Patient has POLST: Yes POLST Status: DNR, Selective Treatment Pain: Pain improved (With increase of fentanyl patch to 62mcg to right scapula) Tiredness/Fatigue: Mild (1-3) Drowsiness/Sedation: None Nausea: None Anorexia: Moderate (4-6) Dyspnea: Moderate (4-6) Anxiety: Moderate (4-6) (improved with xanax and increase of gabapentin) Feelings of wellbeing/Perceived Quality of Life: Fair Sleep: Sleeps well Performance Status: Patient has had a reduction in her overall energy and therefore is doing less housekeeping around the home than she was previously. She still is able to make it up and down the stairs however, can become winded with exertion. Remains continent of bowel and bladder. - Palliative Care Discussion: Patient had demonstrated a reported low on her pulse ox yesterday and not feeling her usual self from a breathing perspective. She utilized her Advair that she had been prescribed previously by her provider and not utilized on a daily basis and reports feeling her breathing is improved today however, continues with wheezing. On examination wheezing was noted in the setting of tobacco abuse likely underlying COPD and this was reviewed today with the patient and daughter. The patient with ambulation and exertion remained at 93 to 94% and therefore, would not qualify for supplemental oxygen based on this qualification. Encouraged to continue to work on reduction of the amount of cigarettes she is smoking per day and would benefit from utilization of Advair on a daily basis as well as adding a rescue inhaler. The patient has been having some increased anxiety, appropriately, regarding her overall decline and fear regarding the future. She has positively responded to introduction of Xanax utilizing approximately 2/day. Her BuSpar was also increased and this is also provided benefit. Her overall pain has improved related to her right scapula and neuropathic component with increase of gabapentin to 300 mg 3 times daily and fentanyl to 62 mcg. The patient recognizes that she has been having some decline. In light of increased symptom burden that the patient has been experiencing reintroduced the role of hospice services as the patient wishes to focus on quality of life and avoid interventions. This appropriately alliance with the patient's goals in order to spend optimal time with her family. She and her daughter are planning a trip to [place] in September 2021 and this is something that she is looking forward to. Discussed that hospice provides an extra added layer of support and the team will be able to focus on her needs and optimize her comfort. Patient has elected to proceed forward with hospice services after lengthy discussion weighing benefits versus burdens and patient appeared visibly relieved regarding this decision. Impression and Recommendations - Palliative Care Impression: This is a nael 56-year-old female with stage I small cell lung cancer in the setting of longstanding tobacco abuse, new onset wheezing with dyspnea on exertion likely due to underlying COPD that has been undiagnosed, pain of neoplastic origin and depression with anxiety. Does not qualify for supplemental oxygen based on walking pulse ox. Will introduced Advair 250/50 to utilize 1 puff twice a day with rescue inhaler of albuterol as needed. Anxiety has significantly improved as has generalized pain due to neoplasm with the last medication adjustments made last week. Patient is to transition to hospice services next week for an additional support and optimize her quality of life. Recommendations/Counseling Done: 1. Wheezing, in the setting of tobacco abuse. Likely underlying COPD. Lengthy review with patient and daughter regarding COPD and impact. Initiate Advair 250/50 1 puff twice a day. Advised to rinse mouth out after use. Begin albuterol inhaler 2 puffs every 4 hours as needed for wheezing or shortness of breath and reviewed purpose, dose, adverse effects as well as how to administer at length. Questions answered and addressed. Walking pulse ox did not reveal that the patient would qualify for supplemental oxygen. Encourage gradual reduction in tobacco use. With transition to hospice services consider supplemental oxygen in the future for comfort measures. 2. Anxiety. Improved. Continue alprazolam 0.25 mg 1 tablet 3 times a day as needed for acute anxiety. Patient previously sent a 2-week supply to the pharmacy and hospice to assume with admission on 09/08. Yesterday, BuSpar was increased to 10 mg in the morning, 5 mg midday, and 10 mg in the evening. Gabapentin can also assist with some underlying anxiety. As the patient has had overall improvement will not make further adjustments to regimen at this time. We will also benefit from support of mobility developer regarding anxiety related to end-of-life concerns. 3. Pain of neoplastic origin. Improved neuropathic component. Unintentional overdose of MS Contin 05/2021 resulting in hospitalization and transition to fentanyl. Pain improved with recent fentanyl patch increase. Continue fentanyl patch 62 mcg (50 mcg +12 mcg patch together changed every 72 hours (. Patient has had intermittent issues with sticking of the patch due to sweating. Continue hydrocodone 10 mg/acetaminophen 325 mg 1 tablet every 4 hours as needed for breakthrough pain and continue to record. Has Narcan in the home. Benefited from increase of gabapentin to 300 mg 3 times daily. Continue to monitor. 4. Functional decline. Patient is demonstrating that she is slowing down due to multiple symptomatology related to her multiple comorbidities including now underlying COPD in addition to her small cell lung cancer, pain, and anxiety. Lengthy discussion had regarding interventions and patient wishes to remain at home and not be transferred to the hospital and would appreciate transitioning to hospice services to have support 14/02 to focus on comfort. 5. Small cell lung cancer. No previous evidence of metastases on imaging. Status post medical oncology and radiation oncology. Patient continues to remain steadfast in her decision not to proceed with interventions and wishes to focus on quality of life and symptom management within the home. Given the patient showing increased symptom burden recommendation made to transition to hospice services and patient is accepting of this recommendation and perceives this is a benefit and will be admitted to hospice services on 09/08. 6.History of mitral valve replacement with mechanical valve. INR followed by Coumadin clinic and last checked 2 weeks ago. Given the patient continues to be functional would continue Coumadin therapy and monitoring with transition to hospice services. 7. Advanced care planning. Patient has POLST in place as DN AR. She prefers to avoid transportation to the hospital and wishes to have her symptoms managed at home. She is looking forward to a trip to [place] with her daughter as she has not been in several decades and they are planning this for early September. Total time spent 45 minutes with greater than 50% of the spent in counseling coronation of care with the patient and daughter/DPOA; walking pulse oximetry and examination; review of pathophysiology of COPD; review of symptom management and new medications that have been prescribed for symptom management; review of palliative care versus hospice philosophy is; supportive listening and anticipatory guidance. Updated Analilia Acuna RN with hospice who is scheduled to admit the patient on 09/08 regarding above conversation as well as desired to have Coumadin continued. Also coordinated care with hospice biomedical engineering professor, Dr. Castro. Message left to update PCP Dr. Carranza regarding transition to hopsice. Disclaimer: The chart note was formulated using voice recognition technology and unfortunately sound alike errors may occur.
== END 2021-09-03 12:31 | disposition home or self-care (01) ==
LOC: PC 12:30
PROVIDERS: ATTEND Nurse Practitioner Family
DX: Z51.5 Encounter for palliative care (principal); R06.02 Shortness of breath; R06.2 Wheezing; G89.3 Neoplasm related pain (acute) (chronic); F41.9 Anxiety disorder, unspecified; F17.210 Nicotine dependence, cigarettes, uncomplicated; R53.83 Other fatigue; C34.90 Malignant neoplasm of unspecified part of unspecified bronchus or lung; R53.1 Weakness; G62.9 Polyneuropathy, unspecified; R61 Generalized hyperhidrosis; Z79.891 Long term (current) use of opiate analgesic; Z79.899 Other long term (current) drug therapy; Z79.51 Long term (current) use of inhaled steroids; Z79.01 Long term (current) use of anticoagulants; Z95.2 Presence of prosthetic heart valve; Z66 Do not resuscitate
CPT/HCPCS: 99349